=== PATIENT | male | born 1940 | race Caucasian/White ===

== ENCOUNTER 2017-07-29 08:00 | Outpatient (CLI) | payer MEDICARE, BC | END 2017-07-29 08:01 | disposition home or self-care (01) | LOC: LAB.WCP 08:00 | PROVIDERS: ATTEND Physician Assistant Medical | DX: N12 Tubulo-interstitial nephritis, not specified as acute or chronic (principal) | CPT/HCPCS: 87086 ==

== ENCOUNTER 2017-07-30 11:52 | Outpatient (CLI) | payer MEDICARE, BC ==
[~2017-07-30 11:52] MED LIST: IOPAMIDOL-300 100 ML VIAL ONE; IOPAMIDOL-300 50 ML VIAL ONE
[2017-07-30] MEDS ORDERED: IOPAMIDOL-300 100 ML VIAL IVP ONE (13:59)
--- NOTE | 2017-07-31 09:32 | CT Report ---
CT CHEST WITH CONTRAST: 07/30/2017 CLINICAL INDICATION: Chronic cough. TECHNIQUE: Axial CT images of the chest were obtained with 100 mL Isovue-300 intravenously. Compari son is made to chest x-ray of 07/25/2017. In accordance with CT protocol optimization, one or more of the following dose reduction techniques w ere utilized for this exam: automated exposure control, adjustment of mA and/or KV based on patient size, or use of iterative reconstructive technique. FINDINGS: The heart and great vessels demonstrate mild atherosclerotic calcification. No hilar or m ediastinal lymphadenopathy is present. The lungs demonstrate emphysema. Minimal dependent atelectas is is present. No suspicious pulmonary nodule or mass lesion is seen. No effusion or pneumothorax i s present. Osseous structures demonstrate degenerative changes. Please also refer to CT of the abdo men of the same day. IMPRESSION: EMPHYSEMA. NO FOCAL INFILTRATE OR PULMONARY NODULE. JOB #: [id number] EXT JOB #:[id number]
--- NOTE | 2017-07-31 09:37 | CT Report ---
CT ABDOMEN AND PELVIS WITH CONTRAST: 07/30/2017 CLINICAL INDICATION: Pyelonephritis, abdominal bruit. TECHNIQUE: Axial CT images of the abdomen and pelvis were obtained with 100 mL Isovue-300 intravenou sly as well as oral contrast. No previous CT is available for comparison. In accordance with CT protocol optimization, one or more of the following dose reduction techniques w ere utilized for this exam: automated exposure control, adjustment of mA and/or KV based on patient size, or use of iterative reconstructive technique. FINDINGS: The liver, spleen, pancreas, and adrenal glands are unremarkable. There is mild bilateral hydronephrosis and hydroureter. Small cortical cysts are seen. No solid renal lesion is appreciate d. The gallbladder is not dilated. No bowel dilatation, free gas, or free fluid is present. No abd ominal adenopathy is present. The abdominal aorta demonstrates atherosclerotic calcifications, witho ut evidence of a hemodynamically significant stenosis. Pelvis: The urinary bladder appears thick-walled and irregular. Correlation with cystoscopy is juma mmended. No distal ureterolithiasis is seen. Hydroureter persists at the bladder base. No pelvic a denopathy or free fluid is present. Osseous structures demonstrate degenerative changes. IMPRESSION: IRREGULAR, THICK-WALLED URINARY BLADDER. BILATERAL MILD HYDRONEPHROSIS AND HYDROURETER TO THE BLADDER BASE. CORRELATION WITH CYSTOSCOPY IS RECOMMENDED. NO FOCAL RENAL MASS OR PERINEPHRIC COLLECTION. BILATERAL CORTICAL CYSTS. JOB #: [id number] EXT JOB #:[id number]
== END 2017-07-30 11:53 | disposition home or self-care (01) ==
LOC: DI 11:52
PROVIDERS: ATTEND Physician Assistant Medical
DX: N13.30 Unspecified hydronephrosis (principal); N13.4 Hydroureter; F17.200 Nicotine dependence, unspecified, uncomplicated; J43.9 Emphysema, unspecified
CPT/HCPCS: 71260; 74177; Q9967

== ENCOUNTER 2018-06-04 20:59 | Outpatient (CLI) | payer MEDICARE, BC ==
--- NOTE | 2018-06-05 00:06 | Ultrasound Report ---
Procedure Date: 06/04/2018 Accession Number: [id number] / [id number] Procedure: US - Duplex Lwr Ext Arterial Bilat CPT Code: FULL RESULT: EXAM: BILATERAL LOWER EXTREMITY ARTERIAL DOPPLER ULTRASOUND EXAM DATE: 06/04/2018 09:37 PM. CLINICAL HISTORY: Claudication, intermittent, type 1 diabetes. COMPARISON: None. TECHNIQUE: Real-time sonographic vascular imaging was performed by the conductor/engineer, utilizing color-flow, Doppler flow, and spectral analysis. Multiple health and safety representative static images were saved for review. FINDINGS: On the right, multifocal atherosclerotic plaquing is seen but no focal hemodynamically significant stenosis is noted. Anterior tibial artery is not seen. Otherwise, no occlusion is identified. On the left, there is multifocal atherosclerotic plaquing but no hemodynamically significant stenosis is identified. Anterior tibial artery is not seen. Otherwise no occlusion is noted. Right Lower Extremity: REAL ESTATE INSTRUCTOR: PSV 72.4 cm/sec, triphasic waveform. PSFA: PSV 88.6 cm/sec, biphasic waveform. MSFA: PSV 100.9 cm/sec, biphasic waveform. DSFA: PSV 136.5 cm/sec, monophasic waveform. PFA: PSV 71.6 cm/sec, biphasic waveform. POP: PSV 87.5 cm/sec, biphasic waveform. AMANDA: Not seen. INSPECTION SUPERVISOR: PSV 68.5 cm/sec, monophasic waveform. MERI: PSV 38.8 cm/sec, monophasic waveform. DPA: PSV 21.7 cm/sec, monophasic waveform. Left Lower Extremity: REAL ESTATE INSTRUCTOR: PSV 90.0 cm/sec, biphasic waveform. PSFA: PSV 110.5 cm/sec, biphasic waveform. MSFA: PSV 181.3 cm/sec, biphasic waveform. DSFA: PSV 130.9 cm/sec, biphasic waveform. PFA: PSV 57.3 cm/sec, biphasic waveform. POP: PSV 39.0 cm/sec, monophasic waveform. AMANDA: Not seen. INSPECTION SUPERVISOR: PSV 86.0 cm/sec, biphasic waveform. MERI: PSV 15.2 cm/sec, monophasic waveform. DPA: PSV 56.2 cm/sec, monophasic waveform. IMPRESSION: 1. Anterior tibial artery is not visualized bilaterally. 2. Multifocal bilateral atherosclerotic disease without hemodynamically significant stenosis. RADIA
== END 2018-06-04 21:00 | disposition home or self-care (01) ==
LOC: DI 20:59
PROVIDERS: ATTEND Family Medicine
DX: E10.51 Type 1 diabetes mellitus with diabetic peripheral angiopathy without gangrene (principal)
CPT/HCPCS: 93925

== ENCOUNTER 2018-08-20 14:39 | Outpatient (CLI) | payer MEDICARE, BC | END 2018-08-20 14:40 | disposition critical access hospital (66) | LOC: EMS 14:39 | PROVIDERS: ATTEND Surgery | DX: R41.82 Altered mental status, unspecified (principal); R73.09 Other abnormal glucose | CPT/HCPCS: A0425; A0429 ==

== ENCOUNTER 2018-08-20 14:58 | Emergency (ER) | payer MEDICARE, BC ==
--- NOTE | 2018-08-20 15:21 | ED Physician Documentation ---
History of Present Illness - Stated complaint Stated Complaint: UNRESPONSIVE - Chief complaint Chief Complaint: General - History obtained from History obtained from: Patient - History of Present Illness Timing: Today Pain level max: 0 Pain level now: 0 Improved by: eating, D50 Worsened by: insulin - Additonal information Additional information: Patient is a 77-year-old male who presents to the emergency department after taking his Lantus today and then falling back asleep. Son came to check on him and found him unresponsive. EMS arrived and blood sugar was 17. They gave him D50 as well as food, he has now acting normal and appropriate. Review of Systems Constitutional: denies: Fever, Chills Nose: denies: Rhinorrhea / runny nose, Congestion Respiratory: denies: Dyspnea GI: denies: Abdominal Pain, Nausea, Vomiting, Diarrhea Skin: denies: Rash Musculoskeletal: denies: Neck pain, Back pain Neurologic: denies: Focal weakness, Numbness, Headache PD PAST MEDICAL HISTORY - Past Medical History Past Medical History: Yes Cardiovascular: Hypertension, High cholesterol Neuro: Peripheral neuropathy Endocrine/Autoimmune: Type 1 diabetes - Past Surgical History Past Surgical History: Yes Ortho: Knee replacement - Present Medications Home Medications: Ambulatory Orders Medication Instructions Recorded Confirmed Aspirin [Adult Aspirin] 81 mg PO DAILY 06/18/18 06/18/18 Cholecalciferol (Vitamin D3) 1,000 unit PO DAILY 06/18/18 06/18/18 [Vitamin D3] Gabapentin [Neurontin] 600 mg PO TID 06/18/18 06/18/18 Insulin Glargine [Lantus Solostar] 30 unit SQ DAILY 06/18/18 06/18/18 Insulin Lispro [Humalog Kwikpen 0 - 10 unit SUBQ TIDWM 06/18/18 06/18/18 U-100] Lisinopril 10 mg PO DAILY 06/18/18 06/18/18 Multivitamin [Multiple Vitamins] 1 each PO DAILY 06/18/18 06/18/18 Pen Needle, Diabetic [Pen Needle] 1 each MC QID 06/18/18 06/18/18 Prednisone [Aurora] 3 mg PO DAILY 06/18/18 06/18/18 Simvastatin 20 mg PO DAILY PM 06/18/18 06/18/18 Varenicline Tartrate [Chantix] 1 mg PO BID 06/18/18 06/18/18 - Allergies Allergies/Adverse Reactions: Allergies Allergy/AdvReac Type Severity Reaction Status Date / Time No Known Drug Allergies Allergy Verified 08/20/18 15:04 - Social History Does the pt smoke?: No Smoking Status: Former smoker Does the pt drink ETOH?: No Does the pt have substance abuse?: No - Immunizations Immunizations are current?: Yes PD ED PE NORMAL - Vitals Vital signs reviewed: Yes - General General: Alert and oriented X 3 - HEENT HEENT: Moist mucous membranes - Neck Neck: Supple, no meningeal sign - Cardiac Cardiac: RRR - Respiratory Respiratory: No respiratory distress, Clear bilaterally - Abdomen Abdomen: Soft, Non tender, Non distended - Derm Derm: Warm and dry - Neuro Neuro: Alert and oriented X 3 - Psych Psych: Normal mood, Normal affect Results - Vitals Vitals: Vital Signs - 24 hr 08/20/18 08/20/18 14:59 17:13 Temperature 35.7 C L 36.3 C L Heart Rate 85 82 Respiratory 18 16 Rate Blood Pressure 203/92 H 156/65 H O2 Saturation 100 99 Oxygen O2 Source Room air PD MEDICAL DECISION MAKING - ED course Complexity details: reviewed results, re-evaluated patient, considered differ ential, d/w patient ED course: Patient is a 77-year-old diabetic male who took his Lantus and then fell asleep, causing a hypoglycemic event. Tolerating p.o. without difficulty here. Observed in the emergency department and for over 2 hours with no recurrent hypoglycemia and in fact his blood sugar is continuing to increase. He is asymptomatic. He is going home with family member winter. Patient counseled regarding signs and symptoms for which I believe and urgent re-evaluation would be necessary. Patient with good understanding of and agreement to plan and is comfortable going home at this time This document was made in part using voice recognition software. While efforts are made to proofread this document, sound alike and grammatical errors may occur. Departure - Departure Disposition: 01 Home, Self Care Clinical Impression: Hypoglycemia Condition: Good Instructions: ED Diabetes Hypoglycemia Insulin React Follow-Up: Efra Wisdom DO [Primary Care Provider] - Within 1 week Comments: Continue to monitor your blood sugar closely at home today. Eat as you normally would. Return if you worsen. Discharge Date/Time: 08/20/18 17:15
[2018-08-20 17:14] VITALS: BP 156/65
== END 2018-08-20 17:15 | disposition home or self-care (01) ==
LOC: EDUNIT# → ED 14:58
DX: E10.649 Type 1 diabetes mellitus with hypoglycemia without coma (principal); E10.42 Type 1 diabetes mellitus with diabetic polyneuropathy; I10 Essential (primary) hypertension; E78.00 Pure hypercholesterolemia, unspecified; Z87.891 Personal history of nicotine dependence; Z96.659 Presence of unspecified artificial knee joint
CPT/HCPCS: 99283

== ENCOUNTER 2018-12-02 13:50 | Outpatient (CLI) | payer MEDICARE, BC ==
[2018-12-02 18:57] LABS: BASOPHILS # (AUTO) 0.1 10^3/uL (0.0-0.1); BASOPHILS % (AUTO) 0.8 %; EOSINOPHILS # (AUTO) 0.4 10^3/uL (0.0-0.7); EOSINOPHILS % (AUTO) 4.5 %; HGB - HEMOGLOBIN 13.6 g/dL (14.0-18.0); LYMPHOCYTES # (AUTO) 1.4 10^3/uL (1.5-3.5); LYMPHOCYTES % (AUTO) 17.3 %; MEAN CORPUSCULAR HEMOGLOBIN 29.8 pg (27.0-31.0); MEAN CORPUSCULAR HGB CONC 32.2 g/dL (32.0-36.0); MEAN CORPUSCULAR VOLUME 92.4 fL (80.0-94.0); MEAN PLATELET VOLUME 10.4 fL (7.4-11.4); MONOCYTES # (AUTO) 0.7 10^3/uL (0.0-1.0); MONOCYTES % (AUTO) 8.4 %; NEUTROPHILS # (AUTO) 5.5 10^3/uL (1.5-6.6); PLT - PLATELET COUNT 194 10^3/uL (130-450); RED BLOOD COUNT 4.58 10^6/uL (4.70-6.10); WHITE BLOOD COUNT 7.9 x10^3/uL (4.8-10.8)
[2018-12-02 19:19] LABS: ALBUMIN 3.9 g/dL (3.2-5.5); ALBUMIN/GLOBULIN RATIO 1.3 (1.0-2.2); ALKALINE PHOSPHATASE 100 IU/L (42-121); ALT ALANINE AMINOTRANSFERASE 16 IU/L (10-60); AST ASPARTATE AMINOTRANSFERASE 19 IU/L (10-42); BILIRUBIN,TOTAL 0.4 mg/dL (0.2-1.0); BUN - BLOOD UREA NITROGEN 30 mg/dL (6-20); CALCIUM 9.3 mg/dL (8.5-10.3); CARBON DIOXIDE - CO2 29 mmol/L (21-32); CHLORIDE 101 mmol/L (101-111); CHOL/HDL RATIO 3.1 (<5.0); CHOLESTEROL 160 mg/dL; CREATININE 0.9 mg/dL (0.6-1.2); GFR - MDRD 82 (>89); GLUCOSE 341 mg/dL (70-100); HDL CHOLESTEROL 51 mg/dL; LDL CHOLESTEROL,CALCULATED 87 mg/dL; LDL/HDL RATIO 1.7 (<3.6); SODIUM 138 mmol/L (135-145); TOTAL PROTEIN 6.9 g/dL (6.7-8.2); VLDL CHOLESTEROL 22 mg/dL
[2018-12-02 20:04] LABS: HB2 TOTAL 14.3 g/dL; HEMOGLOBIN A1C 1.1 g/dL; HEMOGLOBIN A1C % 9.2 % (4.6-6.2)
== END 2018-12-02 13:51 | disposition home or self-care (01) ==
LOC: LAB.WCP 13:50
PROVIDERS: ATTEND Family Medicine
DX: E10.9 Type 1 diabetes mellitus without complications (principal)
CPT/HCPCS: 36415; 80053; 80061; 83036; 83721; 85025

== ENCOUNTER 2018-12-04 14:49 | Outpatient (CLI) | payer MEDICARE, BC ==
--- NOTE | 2018-12-05 14:44 | CT Report ---
Reason: SMOKER,COUGH,CHRONIC Procedure Date: 12/04/2018 Accession Number: [id number] / [id number] Procedure: CT - CHEST WO CPT Code: FULL RESULT: EXAM: CT CHEST WITHOUT CONTRAST EXAM DATE: 12/04/2018 03:06 PM. CLINICAL HISTORY: Smoker, cough, chronic. COMPARISONS: CT abdomen/pelvis w/ 07/30/2017 1:13 PM. TECHNIQUE: Routine helical CT imaging was performed through the chest. IV contrast: None. Reconstructions: Coronal and sagittal. In accordance with CT protocol optimization, one or more of the following dose reduction techniques were utilized for this exam: automated exposure control, adjustment of mA and/or KV based on patient size, or use of iterative reconstructive technique. FINDINGS: Lungs/Pleura: There is mild centrilobular emphysema with upper lung predominance, similar to prior. There is mild bilateral basilar dependent atelectasis or scarring, similar to the prior exam. There is a 3 mm solid pulmonary nodule in the right upper lobe (series 4 image 13), unchanged compared to 07/30/2017. No bronchial thickening, consolidation, or edema. Pulmonary vasculature is normal. No pericardial or pleural effusion. No pneumothorax. Mediastinum: No cardiomegaly. Extensive coronary artery calcifications are present. No pericardial fluid. No mediastinal or hilar adenopathy apparent on this noncontrast exam. No thoracic aortic aneurysm. There is mild atherosclerotic calcification of the aortic arch, aortic arch branch vessels, and descending thoracic aorta. Bones: There are mild to moderate degenerative disk changes of the thoracic spine. No acute osseous abnormality or bone lesion. Visualized Abdomen: There is moderate atherosclerotic calcification of the visualized portion of the abdominal aorta. Left renal vascular calcifications are present. The visualized upper abdomen is otherwise unremarkable. Other: None. IMPRESSION: 1. Mild centrilobular emphysema with upper lung predominance, similar to prior. 2. There is a 3 mm solid pulmonary nodule in the right upper lobe, unchanged compared to 07/30/2017. Given the size and stability, no further imaging follow-up is recommended by Fleischner criteria. No new pulmonary nodules or other significant interval change. 3. Extensive coronary artery calcifications. There is mild atherosclerotic calcification of the thoracic aorta. Recommend follow-up of the described nodule(s) according to the following guidelines: Fleischner Society Recommendations 2017 MacMahon et al. Radiology 2017 Solid Nodules-Low Risk Patients: <6 mm (single or multiple) - No routine follow-up* 6-8 mm (single) -CT at 6-12 months, then consider CT at 18-24 months 6-8mm (multiple) -CT at 3-6 months, then consider at CT 18-24 months >8 mm (single) -Consider CT, PET/CT, or tissue sampling at 3 months >8 mm (multiple) -CT at 3-6 months, then consider CT at 18-24 months Solid Nodules-High Risk Patients: <6 mm (single or multiple) -Optional CT at 12 months* 6-8 mm (single) -CT at 6-12 months, then CT at 18-24 months 6-8mm (multiple) -CT at 3-6 months, then CT at 18-24 months >8 mm (single) -Consider CT, PET/CT, or tissue sampling at 3 months >8 mm (multiple) -CT at 3-6 months, then at 18-24 months *Nodules < 6mm do not require routine follow-up, but suspicious nodule morphology, upper lobe location, or both may warrant 12 month follow-up Subsolid nodules: <6 mm (single, GG or part solid) -No routine follow-up >=6 mm (single GG) -CT at 6-12 months to confirm, then CT q2 years until 5 years >=6 mm (single part solid) -CT at 3-6 months to confirm, if unchanged and solid <6mm, annual CT for 5 years <6 mm (multiple GG or part solid) -CT at 3-6 months. If stable, consider CT at 2 and 4 years >=6 mm (multiple GG or part solid) -CT at 3-6 months. Subsequent management based on most suspicious nodule(s). Consider follow-up at 2 and 4 years for certain suspicious nodules <6mm. If solid component develops or growth, consider resection. RADIA
== END 2018-12-04 14:50 | disposition home or self-care (01) ==
LOC: DI 14:49
PROVIDERS: ATTEND Family Medicine
DX: F17.200 Nicotine dependence, unspecified, uncomplicated (principal); J43.9 Emphysema, unspecified; R91.1 Solitary pulmonary nodule; I25.10 Atherosclerotic heart disease of native coronary artery without angina pectoris; I70.0 Atherosclerosis of aorta
CPT/HCPCS: 71250

== ENCOUNTER 2018-12-08 13:17 | Outpatient (CLI) | payer MEDICARE, BC | END 2018-12-08 13:18 | disposition home or self-care (01) | LOC: RT 13:17 | PROVIDERS: ATTEND Family Medicine | DX: R05 Cough (principal); F17.200 Nicotine dependence, unspecified, uncomplicated | CPT/HCPCS: 94010 ==

== ENCOUNTER 2019-02-12 05:45 | Outpatient (CLI) | payer MEDICARE, BC | END 2019-02-12 05:46 | disposition EMS.NT | LOC: EMS 05:45 | PROVIDERS: ATTEND Surgery | DX: R41.0 Disorientation, unspecified (principal); R25.1 Tremor, unspecified; R61 Generalized hyperhidrosis ==

== ENCOUNTER 2019-03-04 11:07 | Outpatient (CLI) | payer MEDICARE, BC ==
--- NOTE | 2019-03-04 12:53 | DEXA Report ---
Reason: DISORDER OF BONE Procedure Date: 03/04/2019 Accession Number: [id number] / [id number] Procedure: DEX - Dexa Spine and/or Hip CPT Code: FULL RESULT: EXAM: Dexa Spine and/or Hip DATE: 03/04/2019 11:40 AM CLINICAL HISTORY: DISORDER OF BONE TECHNIQUE: Dual energy x-ray absorptiometry (DXA) was performed on a [employer] System. Regions measured are the AP Spine, femoral neck, and if needed forearm. COMPARISON: None. In accordance with the International Society for Clinical Densitometry (ISCD) guidelines, data from previous exams may be reanalyzed using current recommendations and techniques. This is done to allow a more accurate basis for comparison with the current study. FINDINGS: The data for the lumbar spine is as follows: BMD (g/cm/cm) T-SCORE Z-SCORE REGION L1 1.293 1.1 2.4 L2 1.505 2.2 3.5 L3 1.752 4.3 5.5 L4 1.823 4.9 6.1 TOTAL 1.600 3.2 4.4 NOTE: All evaluable vertebrae are used for classification The data for the hip is as follows: BMD (g/cm/cm) T-SCORE Z-SCORE REGION Neck 0.901 -1.3 0.6 TOTAL 1.049 -0.4 1.0 NOTE: The femoral neck or total proximal femur, whichever is lowest, is used for classification. IMPRESSION: THE WHO CLASSIFICATION BASED ON THE INTERNATIONAL REFERENCE STANDARD IS OSTEOPENIA. THE FRACTURE RISK IS INCREASED. RECOMMENDATION: Patients with diagnosis of osteoporosis or osteopenia should have regular bone mineral density assessment. For those eligible for Medicare, routine testing is allowed once every 2 years. Testing frequency can be increased for patients who have rapidly progressing disease or for those who are receiving medical therapy to restore bone mass. COMMENT: World Health Organization (WHO) definitions for osteoporosis and osteopenia: NORMAL BMD: T-score at -1.0 or higher, fracture risk is low OSTEOPENIA BMD: T-score between -1.0 and -2.5, fracture risk is increased. OSTEOPOROSIS BMD: T-score at -2.5 or lower, fracture risk is high. National Osteoporosis Foundation recommends: 1. Obtain adequate dietary calcium (at least 1200 mg per day) and vitamin D (400-800 international units per day). 2. Participate, as appropriate, in regular weightbearing and muscle-strengthening exercise. 3. Avoid tobacco use and reduce alcohol and caffeine intake. 4. For more detailed information see the website at www.NOF.org.
== END 2019-03-04 11:08 | disposition home or self-care (01) ==
LOC: DI 11:07
PROVIDERS: ATTEND Internal Medicine Endocrinology, Diabetes & Metabolism
DX: M85.88 Other specified disorders of bone density and structure, other site (principal)
CPT/HCPCS: 77080

== ENCOUNTER 2019-08-03 11:08 | Emergency (ER) | payer MEDICARE, BC ==
[2019-08-03 11:57] LABS: BASOPHILS % (AUTO) 0.4 %; EOSINOPHILS % (AUTO) 0.3 %; LYMPHOCYTES # (AUTO) 0.6 10^3/uL (1.5-3.5); LYMPHOCYTES % (AUTO) 5.7 %; MEAN CORPUSCULAR HEMOGLOBIN 31.8 pg (27.0-31.0); MEAN CORPUSCULAR HGB CONC 31.5 g/dL (32.0-36.0); MEAN CORPUSCULAR VOLUME 101.1 fL (80.0-94.0); MEAN PLATELET VOLUME 12.1 fL (7.4-11.4); MONOCYTES # (AUTO) 0.4 10^3/uL (0.0-1.0); MONOCYTES % (AUTO) 4.5 %; NEUTROPHILS # (AUTO) 8.7 10^3/uL (1.5-6.6); NEUTROPHILS % (AUTO) 88.8 %; PLT - PLATELET COUNT 186 10^3/uL (130-450); RED BLOOD COUNT 3.77 10^6/uL (4.70-6.10); RED CELL DISTRIBUTION WIDTH 13.5 % (12.0-15.0); WHITE BLOOD COUNT 9.8 x10^3/uL (4.8-10.8)
[2019-08-03 12:19] LABS: KETONES, SERUM (ACETEST) SMALL (NEGATIVE)
[2019-08-03 12:33] LABS: ALBUMIN 3.5 g/dL (3.2-5.5); ALBUMIN/GLOBULIN RATIO 1.2 (1.0-2.2); ALKALINE PHOSPHATASE 108 IU/L (42-121); ALT ALANINE AMINOTRANSFERASE 25 IU/L (10-60); AST ASPARTATE AMINOTRANSFERASE 24 IU/L (10-42); BILIRUBIN,TOTAL 1.6 mg/dL (0.2-1.0); BUN - BLOOD UREA NITROGEN 67 mg/dL (6-20); CALCIUM 9.5 mg/dL (8.5-10.3); CARBON DIOXIDE - CO2 13 mmol/L (21-32); CHLORIDE 90 mmol/L (101-111); CREATININE 1.9 mg/dL (0.6-1.2); GFR - MDRD 35 (>89); GLUCOSE 807 mg/dL (70-100); LIPASE 36 U/L (22-51); MAGNESIUM 2.6 mg/dL (1.7-2.8); PHOSPHORUS 7.8 mg/dL (2.5-4.6); SODIUM 132 mmol/L (135-145); TOTAL PROTEIN 6.5 g/dL (6.7-8.2)
[2019-08-03 12:37] LABS: VBG PCO2 37.2 mmHg (41-51); VBG PH 7.172 (7.31-7.41)
[2019-08-03 12:38] LABS: VBG BASE EXCESS -14.3 mmol/L (-2 - +2); VBG PO2 29.6 mmHg (25-47); VBG TOTAL CO2 14.5 mmol/L (24-29)
[2019-08-03] MEDS ORDERED: CALCIUM GLUCONATE 2,000 MG in SODIUM CHLORIDE 0.9% 100ML 100 ML IV STA (12:46)
[2019-08-03] MEDS ORDERED: INSULIN REGULAR HUMAN 100 UNIT in SODIUM CHLORIDE 0.9% 100ML 99 ML IV STA (12:46)
[2019-08-03] MEDS ORDERED: SODIUM CHLORIDE 0.9% 1,000 ML IV ONE ×3 (13:00→16:10)
--- NOTE | 2019-08-03 13:03 | ED Physician Documentation ---
History of Present Illness - Stated complaint Stated Complaint: HIGH BP - Chief complaint Chief Complaint: General - Additonal information Additional information: This is a 78-year-old male with a history of diabetes who presents with weaknes s, fatigue, and high blood sugar. Patient is an insulin-dependent diabetic who takes Humalog, his was present at bedside states that he began feeling unwell yesterday, and His blood sugars have been high in the 500 range. He feels generalized weakness, and has had some slight nausea but no vomiting. No fever. No chest pain. He did have slight shortness of breath earlier in the day. No focal abdominal pain. Review of Systems Constitutional: denies: Fever Eyes: denies: Loss of vision Nose: denies: Rhinorrhea / runny nose Cardiac: reports: Chest pain / pressure Respiratory: denies: Cough GI: reports: Nausea. 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 PD PAST MEDICAL HISTORY - Past Medical History Cardiovascular: Hypertension, High cholesterol Neuro: Peripheral neuropathy Endocrine/Autoimmune: Type 1 diabetes - Past Surgical History Past Surgical History: Yes Ortho: Knee replacement - Present Medications Home Medications: Ambulatory Orders Medication Instructions Recorded Confirmed Aspirin [Adult Aspirin] 81 mg PO DAILY 06/18/18 06/18/18 Cholecalciferol (Vitamin D3) 1,000 unit PO DAILY 06/18/18 06/18/18 [Vitamin D3] Gabapentin [Neurontin] 600 mg PO TID 06/18/18 06/18/18 Insulin Glargine [Lantus Solostar] 30 unit SQ DAILY 06/18/18 06/18/18 Insulin Lispro [Humalog Kwikpen 0 - 10 unit SUBQ TIDWM 06/18/18 06/18/18 U-100] Lisinopril 10 mg PO DAILY 06/18/18 06/18/18 Multivitamin [Multiple Vitamins] 1 each PO DAILY 06/18/18 06/18/18 Pen Needle, Diabetic [Pen Needle] 1 each MC QID 06/18/18 06/18/18 Prednisone [Aurora] 3 mg PO DAILY 06/18/18 06/18/18 Simvastatin 20 mg PO DAILY PM 06/18/18 06/18/18 Varenicline Tartrate [Chantix] 1 mg PO BID 06/18/18 06/18/18 - Allergies Allergies/Adverse Reactions: Allergies Allergy/AdvReac Type Severity Reaction Status Date / Time No Known Drug Allergies Allergy Verified 08/20/18 15:04 - Social History Does the pt smoke?: No Smoking Status: Never smoker Does the pt drink ETOH?: No Does the pt have substance abuse?: No - Immunizations Immunizations are current?: Yes PD ED PE NORMAL - Vitals Vital signs reviewed: Yes - General General: Alert and oriented X 3, No acute distress - HEENT HEENT: PERRL, Other (mucous membranes tacky) - Neck Neck: Supple, no meningeal sign - Cardiac Cardiac: RRR - Respiratory Respiratory: Other (Tachypnea, lungs clear to auscultation) - Abdomen Abdomen: Soft, Non tender, Non distended - Derm Derm: Warm and dry - Extremities Extremities: No deformity - Neuro Neuro: Alert and oriented X 3 - Psych Psych: Normal mood, Normal affect Results - Vitals Vitals: Oxygen O2 Source Room air - EKG (time done) 12:37 Other comments: Other comments (Rhythm sinus, rate 71,There is no ST segment elevation. There is slight lateral depression in V5 and V6. T waves are peaked. Golden is normal. First-degree AV block) 14:01 Other comments: Other comments (Rate 82, rhythm sinus, there is no ST segment elevation or depression, no abnormal T wave inversions. There is a first-degree AV block. T waves no longer appear peaked. ) - Labs Labs: Microbiology 08/03/19 16:15 Urine Culture - Preliminary Urine,Clean Catch CULTURE IN PROGRESS. RESULTS TO FOLLOW. Laboratory Tests 08/03/19 08/03/19 08/03/19 11:47 11:47 11:47 WBC 9.8 RBC 3.77 L Hgb 12.0 L Hct 38.1 L MCV 101.1 H MCH 31.8 H MCHC 31.5 L RDW 13.5 Plt Count 186 MPV 12.1 H Neut # (Auto) 8.7 H Lymph # (Auto) 0.6 L [place] # (Auto) 0.4 Eos # (Auto) 0.0 Baso # (Auto) 0.0 Absolute Nucleated RBC 0.00 Nucleated RBC % 0.0 VBG pH VBG pCO2 VBG pO2 VBG HCO3 VBG Total CO2 VBG O2 Saturation VBG Base Excess Sodium 132 L Potassium 6.8 H* Chloride 90 L Carbon Dioxide 13 L Anion Gap 29.0 H BUN 67 H Creatinine 1.9 H Estimated GFR (MDRD) 35 L Glucose 807 H* POC Whole Bld Glucose Calcium 9.5 Phosphorus 7.8 H Magnesium 2.6 Total Bilirubin 1.6 H AST 24 ALT 25 Alkaline Phosphatase 108 Troponin I High Sens 143.1 H* Total Protein 6.5 L Albumin 3.5 Globulin 3.0 Albumin/Globulin Ratio 1.2 Lipase 36 Urine Color Urine Clarity Urine pH Ur Specific [place] Urine Protein Urine Glucose (UA) Urine Ketones Urine Occult Blood Urine Nitrite Urine Bilirubin Urine Urobilinogen Ur Leukocyte Esterase Urine RBC Urine WBC Ur Squamous Epith Cells Urine Bacteria Urine Mucus Ur Microscopic Review Urine Culture Comments Ethyl Alcohol < 5.0 Serum Ketones SMALL H 08/03/19 08/03/19 08/03/19 12:30 15:12 15:12 WBC RBC Hgb Hct MCV MCH MCHC RDW Plt Count MPV Neut # (Auto) Lymph # (Auto) [place] # (Auto) Eos # (Auto) Baso # (Auto) Absolute Nucleated RBC Nucleated RBC % VBG pH 7.172 L VBG pCO2 37.2 L VBG pO2 29.6 VBG HCO3 13.3 L VBG Total CO2 14.5 L VBG O2 Saturation 51.4 L VBG Base Excess -14.3 L Sodium 137 Potassium 5.1 H Chloride 95 L Carbon Dioxide 14 L Anion Gap 28.0 H BUN 68 H Creatinine 1.7 H Estimated GFR (MDRD) 39 L Glucose 682 H* POC Whole Bld Glucose Calcium 10.1 Phosphorus Magnesium Total Bilirubin AST ALT Alkaline Phosphatase Troponin I High Sens 3725.6 H* Total Protein Albumin Globulin Albumin/Globulin Ratio Lipase Urine Color Urine Clarity Urine pH Ur Specific [place] Urine Protein Urine Glucose (UA) Urine Ketones Urine Occult Blood Urine Nitrite Urine Bilirubin Urine Urobilinogen Ur Leukocyte Esterase Urine RBC Urine WBC Ur Squamous Epith Cells Urine Bacteria Urine Mucus Ur Microscopic Review Urine Culture Comments Ethyl Alcohol Serum Ketones 08/03/19 08/03/19 08/03/19 15:12 16:15 16:57 WBC RBC Hgb Hct MCV MCH MCHC RDW Plt Count MPV Neut # (Auto) Lymph # (Auto) [place] # (Auto) Eos # (Auto) Baso # (Auto) Absolute Nucleated RBC Nucleated RBC % VBG pH 7.215 L VBG pCO2 34.5 L VBG pO2 51.4 H VBG HCO3 13.6 L VBG Total CO2 14.7 L VBG O2 Saturation 83.5 H VBG Base Excess -13.1 L Sodium Potassium Chloride Carbon Dioxide Anion Gap BUN Creatinine Estimated GFR (MDRD) Glucose POC Whole Bld Glucose 522 H* Calcium Phosphorus Magnesium Total Bilirubin AST ALT Alkaline Phosphatase Troponin I High Sens Total Protein Albumin Globulin Albumin/Globulin Ratio Lipase Urine Color LT. YELLOW Urine Clarity CLEAR Urine pH 5.0 Ur Specific [place] 1.015 Urine Protein NEGATIVE Urine Glucose (UA) >=1000 H Urine Ketones >=80 H Urine Occult Blood TRACE-INTA Urine Nitrite NEGATIVE Urine Bilirubin NEGATIVE Urine Urobilinogen 0.2 (NORMAL) Ur Leukocyte Esterase SMALL H Urine RBC 0-5 Urine WBC 11-25 H Ur Squamous Epith Cells FEW Squamous Urine Bacteria Few Urine Mucus Marked Strands Ur Microscopic Review INDICATED Urine Culture Comments INDICATED Ethyl Alcohol Serum Ketones PD MEDICAL DECISION MAKING - ED course Complexity details: considered differential (DKA, ACS, electrolyte abnormality, hyperkalemia, UTI) ED course: Patient presents tachypneic and afebrile. POC glucose is high. IV inserted, NS bolus started. Labs reveal a pH or 7.2, glucose 801, anion gap 29, ketones present, consistent with DKA. Potassium was 6.8, patient was given calcium gl uconate IV, 5 unit bolus of insulin, insulin drip was started, and additional NS bolus to treat this. He did have peaked T waves as well as lateral ST segment depressions on his EKG, he is pain free and denies having chest pain recently. HS troponin is 143. I believe he needs ICU care for his DKA as well as cardiology available due to his elevated troponin and EKG changes. [facility] does not have ICU beds so [facility] was contacted, Dr. Benson states that he will accept patient once potassium is down. Repeat labs show improving glucose, potassium 5.1, HS troponin quite elevated at >3700. he remains chest pain free, repeat EKG appears improved, peaked Ts have resolved and ST depression is no longer seen. Patient has been hemodynamically stable. Dr. Benson was updated and accepted the patient. He was transferred via ACLS with insulin drip to [facility]. UA returned with 11-25 WBC, concerning for possible UTI, I did not have a chance to start antibiotics prior to transfer but they can be started in the [facility] ICU, patient is not septic at this time and his DKA is his primary problem. Departure - Departure Disposition: 02 Transfer Acute Care Hosp Clinical Impression: Troponin level elevated DKA (diabetic ketoacidoses) Qualifiers: Diabetes mellitus type: type 1 Diabetes mellitus complication detail: without coma Qualified Code(s): E10.10 - Type 1 diabetes mellitus with ketoacidosis without coma Condition: Stable Discharge Date/Time: 08/03/19 18:01
[2019-08-03] MEDS ORDERED: INSULIN REGULAR HUMAN 100 UNIT/1 ML 10 ML MDV IVP STA (13:07)
[2019-08-03 15:22] LABS: VBG BASE EXCESS -13.1 mmol/L (-2 - +2); VBG PCO2 34.5 mmHg (41-51); VBG PH 7.215 (7.31-7.41); VBG PO2 51.4 mmHg (25-47); VBG TOTAL CO2 14.7 mmol/L (24-29)
[2019-08-03 15:27] LABS: CALCIUM 10.1 mg/dL (8.5-10.3); CREATININE 1.7 mg/dL (0.6-1.2)
[2019-08-03 16:40] VITALS: BP 139/60
[2019-08-03 16:50] LABS: BILIRUBIN,URINE NEGATIVE (NEGATIVE); GLUCOSE, URINE (UA) >=1000 mg/dL (NEGATIVE); KETONES,URINE (UA) >=80 mg/dL (NEGATIVE); LEUKOCYTE ESTERASE, URINE SMALL (NEGATIVE); NITRITE,URINE NEGATIVE (NEGATIVE); OCCULT BLOOD,URINE TRACE-INTA (NEGATIVE); PROTEIN,URINE NEGATIVE (NEGATIVE); UROBILINOGEN,URINE 0.2 (NORMAL) E.U./dL (NORMAL)
[2019-08-03 16:53] LABS: CLARITY,URINE CLEAR (CLEAR)
[2019-08-03 17:14] LABS: BACTERIA,URINE Few /HPF (None Seen); MUCUS,URINE Marked Strands; RBC,URINE 0-5 /HPF (0-5); SQUAMOUS EPITHELIAL CELL,UR FEW Squamous (<= Few)
== END 2019-08-03 18:01 | disposition short-term general hospital (02) ==
LOC: ED 11:08
DX: E10.10 Type 1 diabetes mellitus with ketoacidosis without coma (principal); R74.8 Abnormal levels of other serum enzymes; E87.5 Hyperkalemia; R94.31 Abnormal electrocardiogram [ECG] [EKG]; I44.0 Atrioventricular block, first degree; I10 Essential (primary) hypertension; E10.42 Type 1 diabetes mellitus with diabetic polyneuropathy; Z79.82 Long term (current) use of aspirin
CPT/HCPCS: 36415; 80048; 80053; 81001; 82009; 82803; 83690; 83735; 84100; 84484; 85025; 87086; 93005; 96361; 96365; 96366; 99283; 99285; J1815; 80320; 81003

== ENCOUNTER 2019-08-03 18:06 | Outpatient (CLI) | payer MEDICARE, BC | END 2019-08-03 18:07 | disposition short-term general hospital (02) | LOC: EMS 18:06 | PROVIDERS: ATTEND Surgery | DX: E11.10 Type 2 diabetes mellitus with ketoacidosis without coma (principal); R79.89 Other specified abnormal findings of blood chemistry | CPT/HCPCS: A0425; A0426 ==

== ENCOUNTER 2019-09-23 16:04 | Emergency (ER) | payer MEDICARE, BC ==
[2019-09-23] MEDS ORDERED: SODIUM CHLORIDE 0.9% 1,000 ML IV ONE (16:25)
--- NOTE | 2019-09-23 16:27 | ED Physician Documentation ---
History of Present Illness - Stated complaint Stated Complaint: LOW BP - History obtained from History obtained from: Patient (78-year-old gentleman with diabetes on insulin, had non-STEMI in mid-July subsequently had a bare-metal stent to the proximal left circumflex in mid August. It sounds like he was not stented during the non-STEMI because he was fairly ill. He was considered for CABG but was too frail. He feels like he has had some generalized weakness and a decline over the last week. His blood pressure this morning at home was about 105/50. He went to cardiac rehab where a standing blood pressure was done at 50 systolic and referred here. He denies chest pain or trouble breathing.) Review of Systems Constitutional: reports: Fatigue. denies: Fever, Chills Cardiac: denies: Chest pain / pressure, Palpitations Respiratory: denies: Dyspnea, Cough GI: denies: Abdominal Pain, Vomiting, Constipation, Diarrhea, Bloody / black stool PD PAST MEDICAL HISTORY - Past Medical History Cardiovascular: Hypertension, High cholesterol Neuro: Peripheral neuropathy Endocrine/Autoimmune: Type 1 diabetes - Past Surgical History Past Surgical History: Yes Ortho: Knee replacement - Present Medications Home Medications: Ambulatory Orders Medication Instructions Recorded Confirmed Aspirin [Adult Aspirin] 81 mg PO DAILY 06/18/18 06/18/18 Cholecalciferol (Vitamin D3) 1,000 unit PO DAILY 06/18/18 06/18/18 [Vitamin D3] Gabapentin [Neurontin] 600 mg PO TID 06/18/18 06/18/18 Insulin Glargine [Lantus Solostar] 30 unit SQ DAILY 06/18/18 06/18/18 Insulin Lispro [Humalog Kwikpen 0 - 10 unit SUBQ TIDWM 06/18/18 06/18/18 U-100] Lisinopril 10 mg PO DAILY 06/18/18 06/18/18 Multivitamin [Multiple Vitamins] 1 each PO DAILY 06/18/18 06/18/18 Pen Needle, Diabetic [Pen Needle] 1 each MC QID 06/18/18 06/18/18 Prednisone [Aurora] 3 mg PO DAILY 06/18/18 06/18/18 Simvastatin 20 mg PO DAILY PM 06/18/18 06/18/18 Varenicline Tartrate [Chantix] 1 mg PO BID 06/18/18 06/18/18 - Allergies Allergies/Adverse Reactions: Allergies Allergy/AdvReac Type Severity Reaction Status Date / Time No Known Drug Allergies Allergy Verified 08/20/18 15:04 - Social History Does the pt smoke?: No Smoking Status: Never smoker Does the pt drink ETOH?: No Does the pt have substance abuse?: No - Immunizations Immunizations are current?: Yes PD ED PE NORMAL - Vitals Vital signs reviewed: Yes - General General: Alert and oriented X 3, No acute distress - HEENT HEENT: PERRL, EOMI - Neck Neck: Supple, no meningeal sign, No bony TTP - Cardiac Cardiac: RRR, No murmur - Respiratory Respiratory: No respiratory distress, Clear bilaterally - Abdomen Abdomen: Non tender - Rectal Rectal: Other (Dark stool, not grossly melanic. Sent for guaiac to the lab.) - Extremities Extremities: No edema, No calf tenderness / cord - Neuro Neuro: Alert and oriented X 3, Normal speech Eye Opening: Spontaneous Motor: Obeys Commands Verbal: Oriented GCS Score: 15 - Psych Psych: Normal mood, Normal affect Results - Vitals Vitals: Vital Signs - 24 hr 09/23/19 09/23/19 16:30 16:41 Temperature 36.5 C Heart Rate 70 60 Respiratory 18 19 Rate Blood Pressure 117/65 131/50 H O2 Saturation 95 99 Oxygen O2 Source Room air - EKG (time done) 1612 Rate: Rate (enter#) (59) Rhythm: NSR [place]: Normal Intervals: Prolonged RI QRS: Normal Ischemia: Normal ST segments Computer interpretation: Agree with computer - Labs Labs: Microbiology 09/23/19 16:55 Occult Blood - Final Stool Laboratory Tests 09/23/19 09/23/19 09/23/19 16:20 16:20 16:20 WBC 9.1 RBC 2.25 L Hgb 7.1 L Hct 24.3 L MCV 108.0 H MCH 31.6 H MCHC 29.2 L RDW 16.0 H Plt Count 275 MPV 11.2 Neut # (Auto) 6.8 H Lymph # (Auto) 1.0 L [place] # (Auto) 1.1 H Eos # (Auto) 0.1 Baso # (Auto) 0.1 Absolute Nucleated RBC 0.03 Nucleated RBC % 0.3 Sodium 142 Potassium 4.5 Chloride 107 Carbon Dioxide 26 Anion Gap 9.0 BUN 31 H Creatinine 0.9 Estimated GFR (MDRD) 82 L Glucose 214 H Calcium 8.6 Total Bilirubin 0.5 AST 21 ALT 15 Alkaline Phosphatase 92 Troponin I High Sens 48.6 H* Total Protein 6.1 L Albumin 3.2 Globulin 2.9 Albumin/Globulin Ratio 1.1 Lipase 39 PD MEDICAL DECISION MAKING - ED course ED course: 78-year-old gentleman with diabetes and recent coronary stenting with coronary disease presents with standing low blood pressure at cardiac rehab, some decline over the last week but otherwise minimally symptomatic. His supine blood pressure here is better. We will give him some IV fluids and check some labs and do orthostatics after that. However his hemoglobin came back quite low at 7.1. This was followed by rectal exam confirming some dark stool with guaiac positivity. Assume this is acute. Per the he had an upper endoscopy that was negative recently by Dr. Johnston in [place], but they were holding off on a colonoscopy to see if his hemoglobin had stabilized. At this point it seems it has not. Blood was readied and he was given a shot of Protonix even though based on the above history it sounds like it is a lower GI bleed. I spoke with Dr. Galarza here, the admitting physician but she felt uncomfortable with the prospect of admitting him without interventional cardiology and GI backup especially since he cannot come off of his Plavix at this juncture. Accepted to [facility] for further evaluation and treatment by Dr. Lucia North at 5:47 PM. Cobras were completed. Will try to get some blood in him before he goes. He is stable for transport. Departure - Departure Disposition: 02 Transfer Acute Care Hosp Clinical Impression: GI bleed Qualifiers: GI bleed type/associated pathology: unspecified gastrointestinal hemorrhage type Qualified Code(s): K92.2 - Gastrointestinal hemorrhage, unspecified Condition: Serious
[2019-09-23 16:38] LABS: BASOPHILS # (AUTO) 0.1 10^3/uL (0.0-0.1); BASOPHILS % (AUTO) 0.5 %; EOSINOPHILS # (AUTO) 0.1 10^3/uL (0.0-0.7); EOSINOPHILS % (AUTO) 0.8 %; HGB - HEMOGLOBIN 7.1 g/dL (14.0-18.0); LYMPHOCYTES % (AUTO) 11.2 %; MEAN CORPUSCULAR HEMOGLOBIN 31.6 pg (27.0-31.0); MEAN CORPUSCULAR HGB CONC 29.2 g/dL (32.0-36.0); MEAN PLATELET VOLUME 11.2 fL (7.4-11.4); MONOCYTES # (AUTO) 1.1 10^3/uL (0.0-1.0); MONOCYTES % (AUTO) 12.4 %; NEUTROPHILS # (AUTO) 6.8 10^3/uL (1.5-6.6); NEUTROPHILS % (AUTO) 74.7 %; PLT - PLATELET COUNT 275 10^3/uL (130-450); RED BLOOD COUNT 2.25 10^6/uL (4.70-6.10); WHITE BLOOD COUNT 9.1 x10^3/uL (4.8-10.8)
[2019-09-23 16:53] LABS: ALBUMIN 3.2 g/dL (3.2-5.5); ALBUMIN/GLOBULIN RATIO 1.1 (1.0-2.2); BILIRUBIN,TOTAL 0.5 mg/dL (0.2-1.0); CALCIUM 8.6 mg/dL (8.5-10.3); CREATININE 0.9 mg/dL (0.6-1.2); TOTAL PROTEIN 6.1 g/dL (6.7-8.2)
[2019-09-23] MEDS ORDERED: PANTOPRAZOLE 40 MG VIAL IVP STA (17:11)
[2019-09-23 20:12] VITALS: BP 168/75
== END 2019-09-23 20:26 | disposition short-term general hospital (02) ==
LOC: ED 16:04
DX: K92.1 Melena (principal); D64.9 Anemia, unspecified; I95.9 Hypotension, unspecified; I44.0 Atrioventricular block, first degree; I10 Essential (primary) hypertension; I25.10 Atherosclerotic heart disease of native coronary artery without angina pectoris; I25.2 Old myocardial infarction; Z95.5 Presence of coronary angioplasty implant and graft; E10.42 Type 1 diabetes mellitus with diabetic polyneuropathy; Z79.02 Long term (current) use of antithrombotics/antiplatelets; Z79.82 Long term (current) use of aspirin
CPT/HCPCS: 36415; 80053; 82272; 83690; 84484; 85025; 86850; 86900; 86901; 86920; 93005; 96361; 96374; 99284; 99285; P9016

== ENCOUNTER 2019-10-05 19:51 | Outpatient (CLI) | payer MEDICARE, BC | END 2019-10-05 19:52 | disposition critical access hospital (66) | LOC: EMS 19:51 | PROVIDERS: ATTEND Surgery | DX: E16.2 Hypoglycemia, unspecified (principal) | CPT/HCPCS: A0425; A0427 ==

== ENCOUNTER 2019-10-05 20:07 | Emergency (ER) | payer MEDICARE, BC ==
[2019-10-05] MEDS ORDERED: SODIUM CHLORIDE 0.9% 1,000 ML IV ONE (20:23)
--- NOTE | 2019-10-05 20:26 | ED Physician Documentation ---
History of Present Illness - Stated complaint Stated Complaint: DIZZY. LIGHTHEADED - Chief complaint Chief Complaint: General - History obtained from History obtained from: Patient, EMS - History of Present Illness Timing: Enter time (1899), Today - Additonal information Additional information: 78-year-old diabetic male on insulin was at his home today when he developed lightheadedness dizziness and collapsing from his he was not injured. He was found to have a low blood sugar when medics arrived blood sugar was 18 and the patient was administered D10 intravenously with resolution of his altered level of consciousness and a second blood sugar done in the ambulance again was low and the patient was administered a second dose of D10. The patient states he feels fine now. He is preparing to do a capsule endoscopy tomorrow. He is not you tried 3 times daily. He has recently been in the [facility] in [place] where he had a stent placed and a blood transfusion. Review of Systems Constitutional: reports: Sweats. denies: Fever, Chills, Myalgias Eyes: denies: Decreased vision Ears: denies: Ear pain Nose: denies: Congestion Throat: denies: Sore throat Cardiac: denies: Chest pain / pressure Respiratory: denies: Cough GI: denies: Vomiting : denies: Dysuria Neurologic: reports: Confused (resolved), Unresponsive (resolved). denies: Generalized weakness, Focal weakness, Numbness PD PAST MEDICAL HISTORY - Past Medical History Cardiovascular: Hypertension, High cholesterol Neuro: Peripheral neuropathy Endocrine/Autoimmune: Type 1 diabetes - Past Surgical History Past Surgical History: Yes Ortho: Knee replacement - Present Medications Home Medications: Ambulatory Orders Medication Instructions Recorded Confirmed Aspirin [Adult Aspirin] 81 mg PO DAILY 06/18/18 06/18/18 Cholecalciferol (Vitamin D3) 1,000 unit PO DAILY 06/18/18 06/18/18 [Vitamin D3] Gabapentin [Neurontin] 600 mg PO TID 06/18/18 06/18/18 Insulin Glargine [Lantus Solostar] 30 unit SQ DAILY 06/18/18 06/18/18 Insulin Lispro [Humalog Kwikpen 0 - 10 unit SUBQ TIDWM 06/18/18 06/18/18 U-100] Lisinopril 10 mg PO DAILY 06/18/18 06/18/18 Multivitamin [Multiple Vitamins] 1 each PO DAILY 06/18/18 06/18/18 Pen Needle, Diabetic [Pen Needle] 1 each MC QID 06/18/18 06/18/18 Prednisone [Aurora] 3 mg PO DAILY 06/18/18 06/18/18 Simvastatin 20 mg PO DAILY PM 06/18/18 06/18/18 Varenicline Tartrate [Chantix] 1 mg PO BID 06/18/18 06/18/18 - Allergies Allergies/Adverse Reactions: Allergies Allergy/AdvReac Type Severity Reaction Status Date / Time No Known Drug Allergies Allergy Verified 10/05/19 20:16 - Social History Does the pt smoke?: No Smoking Status: Never smoker Does the pt drink ETOH?: No Does the pt have substance abuse?: No - Immunizations Immunizations are current?: Yes - POLST Patient has POLST: No PD ED PE NORMAL - Vitals Vital signs reviewed: Yes (normal ) - General General: Alert and oriented X 3, No acute distress, Well developed/nourished - HEENT HEENT: Atraumatic, PERRL, EOMI - Neck Neck: Supple, no meningeal sign, No bony TTP - Cardiac Cardiac: RRR, No murmur - Respiratory Respiratory: No respiratory distress, Clear bilaterally - Abdomen Abdomen: Normal bowel sounds, Soft, Non tender, Non distended, No organomegaly - Back Back: No CVA TTP, No spinal TTP - Derm Derm: Normal color, Warm and dry, No rash - Extremities Extremities: No deformity, No edema - Neuro Neuro: Alert and oriented X 3, foreign languages department chair 2-12 intact, No motor deficit, No sensory deficit, Normal speech Eye Opening: Spontaneous Motor: Obeys Commands Verbal: Oriented GCS Score: 15 - Psych Psych: Normal mood, Normal affect Results - Vitals Vitals: Vital Signs - 24 hr 10/05/19 10/05/19 10/05/19 20:11 20:43 20:46 Temperature 36.4 C L Heart Rate 65 60 62 Respiratory 16 16 16 Rate Blood Pressure 130/85 H 182/79 H 148/75 H O2 Saturation 100 100 10/05/19 10/05/19 10/05/19 21:44 22:13 23:01 Temperature 36.6 C 36.6 C Heart Rate 68 59 L 63 Respiratory 16 16 20 Rate Blood Pressure 155/63 H 153/67 H 160/68 H O2 Saturation 100 100 98 Oxygen O2 Source Room air - EKG (time done) 2017 Rate: Rate (enter#) (61) Rhythm: NSR, LAE Ischemia: ST elevation c/w ischemia (inferior leads minimal ) Compare to prior EKG: Changed from prior EKG (SPT 09-23-[address] elevation in the inferior leads is less) Computer interpretation: Agree with computer - Labs Labs: Laboratory Tests 10/05/19 10/05/19 10/05/19 20:37 20:37 20:37 WBC 7.4 RBC 3.27 L Hgb 9.7 L Hct 33.4 L MCV 102.1 H MCH 29.7 MCHC 29.0 L RDW 15.4 H Plt Count 217 MPV 11.3 Neut # (Auto) 5.7 Lymph # (Auto) 0.7 L [place] # (Auto) 0.8 Eos # (Auto) 0.2 Baso # (Auto) 0.1 Absolute Nucleated RBC 0.00 Nucleated RBC % 0.0 Sodium 139 Potassium 4.8 Chloride 107 Carbon Dioxide 25 Anion Gap 7.0 BUN 33 H Creatinine 0.9 Estimated GFR (MDRD) 82 L Glucose 143 H Lactic Acid 1.2 Calcium 8.4 L Total Bilirubin 0.5 AST 18 ALT 15 Alkaline Phosphatase 66 Troponin I High Sens Total Protein 6.6 L Albumin 3.5 Globulin 3.1 Albumin/Globulin Ratio 1.1 Lipase 26 10/05/19 20:37 WBC RBC Hgb Hct MCV MCH MCHC RDW Plt Count MPV Neut # (Auto) Lymph # (Auto) [place] # (Auto) Eos # (Auto) Baso # (Auto) Absolute Nucleated RBC Nucleated RBC % Sodium Potassium Chloride Carbon Dioxide Anion Gap BUN Creatinine Estimated GFR (MDRD) Glucose Lactic Acid Calcium Total Bilirubin AST ALT Alkaline Phosphatase Troponin I High Sens 7.8 Total Protein Albumin Globulin Albumin/Globulin Ratio Lipase - Rads (name of study) cxr Radiology: Prelim report reviewed (Impression: Nonspecific bronchial wall thickening, may be chronic in the setting of COPD. Acute bronchitis not excluded.), EMP read indepedently, See rad report Procedures - IVC sono (time) 2019 Bedside IVC sono: IVC measures (cm) (1.37), IVC collapsed c insp (cm) ( complete), Dehydration (est <1 liter deficit) PD MEDICAL DECISION MAKING - ED course Complexity details: reviewed old records, reviewed results, re-evaluated patient, considered differential, d/w patient, d/w family ED course: 78-year-old male with an acute hypoglycemic reaction has improved with the use o f the D10 and he is fed here in the emergency department. He is found to be only mildly dehydrated and is administered saline as well. He has capsule endoscopy to be done later today and today his blood counts are improved. Departure - Departure Disposition: 01 Home, Self Care Clinical Impression: Hypoglycemia Condition: Stable Instructions: ED Diabetes Hypoglycemia Insulin React Follow-Up: Efra Wisdom DO [Primary Care Provider] - Discharge Date/Time: 10/05/19 23:13
[2019-10-05 20:44] LABS: BASOPHILS # (AUTO) 0.1 10^3/uL (0.0-0.1); BASOPHILS % (AUTO) 0.7 %; EOSINOPHILS # (AUTO) 0.2 10^3/uL (0.0-0.7); EOSINOPHILS % (AUTO) 2.6 %; HGB - HEMOGLOBIN 9.7 g/dL (14.0-18.0); LYMPHOCYTES # (AUTO) 0.7 10^3/uL (1.5-3.5); LYMPHOCYTES % (AUTO) 9.4 %; MEAN CORPUSCULAR HEMOGLOBIN 29.7 pg (27.0-31.0); MEAN CORPUSCULAR VOLUME 102.1 fL (80.0-94.0); MEAN PLATELET VOLUME 11.3 fL (7.4-11.4); MONOCYTES # (AUTO) 0.8 10^3/uL (0.0-1.0); MONOCYTES % (AUTO) 10.5 %; NEUTROPHILS # (AUTO) 5.7 10^3/uL (1.5-6.6); NEUTROPHILS % (AUTO) 76.1 %; PLT - PLATELET COUNT 217 10^3/uL (130-450); RED BLOOD COUNT 3.27 10^6/uL (4.70-6.10); RED CELL DISTRIBUTION WIDTH 15.4 % (12.0-15.0); WHITE BLOOD COUNT 7.4 x10^3/uL (4.8-10.8)
[2019-10-05 21:00] LABS: ALBUMIN 3.5 g/dL (3.2-5.5); ALBUMIN/GLOBULIN RATIO 1.1 (1.0-2.2); BILIRUBIN,TOTAL 0.5 mg/dL (0.2-1.0); CALCIUM 8.4 mg/dL (8.5-10.3); CREATININE 0.9 mg/dL (0.6-1.2); TOTAL PROTEIN 6.6 g/dL (6.7-8.2)
--- NOTE | 2019-10-05 21:00 | XRAY Report ---
Reason: rhonchi in left base Procedure Date: 10/05/2019 Accession Number: [id number] / [id number] Procedure: XR - Chest 1 View X-Ray CPT Code: 90463 Final Report FULL RESULT: EXAM: CHEST RADIOGRAPHY EXAM DATE: 10/05/2019 08:33 PM. CLINICAL HISTORY: Rhonchi in left base. COMPARISON: CHEST 2 VIEW PA/LAT 07/25/2017 1:51 PM CHEST W/O 12/04/2018 3:01 PM. TECHNIQUE: 1 view. FINDINGS: Lungs/Pleura: No dense consolidation. No large effusion or pneumothorax. No pulmonary edema. COPD is present. Bronchial wall thickening. Pulmonary nodule seen on prior chest CT of 12/04/2018 is not visible by radiograph. Mediastinum: Heart and mediastinal contours are unremarkable. Other: None. IMPRESSION: Nonspecific bronchial wall thickening, may be chronic in the setting of COPD. Acute bronchitis not excluded. RADIA
[2019-10-05 23:02] VITALS: BP 160/68
== END 2019-10-05 23:13 | disposition home or self-care (01) ==
LOC: EDUNIT# → ED 20:07
DX: E10.649 Type 1 diabetes mellitus with hypoglycemia without coma (principal); E86.0 Dehydration; R94.31 Abnormal electrocardiogram [ECG] [EKG]; E10.42 Type 1 diabetes mellitus with diabetic polyneuropathy; I10 Essential (primary) hypertension; Z79.82 Long term (current) use of aspirin
CPT/HCPCS: 36415; 71045; 80053; 83605; 83690; 84484; 85025; 87040; 93005; 96360; 99284

== ENCOUNTER 2019-10-11 10:35 | Outpatient (CLI) | payer MEDICARE, BC ==
[2019-10-11 13:16] LABS: ALBUMIN 3.4 g/dL (3.2-5.5); ALBUMIN/GLOBULIN RATIO 1.3 (1.0-2.2); BILIRUBIN,TOTAL 0.4 mg/dL (0.2-1.0); CALCIUM 8.6 mg/dL (8.5-10.3); CREATININE 0.9 mg/dL (0.6-1.2)
[2019-10-11 13:20] LABS: BASOPHILS # (AUTO) 0.1 10^3/uL (0.0-0.1); BASOPHILS % (AUTO) 0.7 %; EOSINOPHILS # (AUTO) 0.2 10^3/uL (0.0-0.7); HGB - HEMOGLOBIN 10.3 g/dL (14.0-18.0); LYMPHOCYTES # (AUTO) 0.7 10^3/uL (1.5-3.5); LYMPHOCYTES % (AUTO) 6.9 %; MEAN CORPUSCULAR HEMOGLOBIN 30.3 pg (27.0-31.0); MEAN CORPUSCULAR HGB CONC 30.4 g/dL (32.0-36.0); MEAN CORPUSCULAR VOLUME 99.7 fL (80.0-94.0); MEAN PLATELET VOLUME 11.7 fL (7.4-11.4); MONOCYTES # (AUTO) 0.8 10^3/uL (0.0-1.0); MONOCYTES % (AUTO) 8.6 %; NEUTROPHILS # (AUTO) 7.8 10^3/uL (1.5-6.6); NEUTROPHILS % (AUTO) 81.3 %; PLT - PLATELET COUNT 278 10^3/uL (130-450); RED CELL DISTRIBUTION WIDTH 15.2 % (12.0-15.0); WHITE BLOOD COUNT 9.7 x10^3/uL (4.8-10.8)
[2019-10-11 13:22] LABS: HB2 TOTAL 10.3 g/dL; HEMOGLOBIN A1C 0.55 g/dL
== END 2019-10-11 23:59 | disposition home or self-care (01) ==
LOC: LAB.WCP 10:35
PROVIDERS: ATTEND Family Medicine
DX: K92.2 Gastrointestinal hemorrhage, unspecified (principal); E10.9 Type 1 diabetes mellitus without complications
CPT/HCPCS: 36415; 80053; 83036; 85025

== ENCOUNTER 2019-10-27 13:02 | Emergency (ER) | payer MEDICARE, BC ==
[2019-10-27] MEDS ORDERED: SODIUM CHLORIDE 0.9% 1,000 ML IV ONE (14:31)
[2019-10-27] MEDS ORDERED: INSULIN REGULAR HUMAN 100 UNIT/1 ML 10 ML MDV IVP STA (14:31)
--- NOTE | 2019-10-27 14:34 | ED Physician Documentation ---
History of Present Illness - Stated complaint Stated Complaint: INCREASED BLOOD SUGAR - Chief complaint Chief Complaint: General - History obtained from History obtained from: Patient - History of Present Illness Timing: Today (He went for cardiac rehab today, and was referred over here because his blood sugar was too high. There was a secondhand verbal report of him being hypotensive but no numbers were given. Of note his Dexcom blood sugar reader currently is reading 320 although his fingerstick is closer to 500. He feels fine, no chest pain, trouble breathing, fevers, fatigue.) Review of Systems Constitutional: denies: Fever, Chills Throat: denies: Dental pain / toothache, Sore throat Cardiac: denies: Chest pain / pressure, Palpitations Respiratory: denies: Dyspnea, Cough GI: denies: Abdominal Pain, Nausea, Diarrhea PD PAST MEDICAL HISTORY - Past Medical History Cardiovascular: Hypertension, High cholesterol Neuro: Peripheral neuropathy Endocrine/Autoimmune: Type 1 diabetes - Past Surgical History Past Surgical History: Yes Ortho: Knee replacement - Present Medications Home Medications: Ambulatory Orders Medication Instructions Recorded Confirmed Aspirin [Adult Aspirin] 81 mg PO DAILY 06/18/18 06/18/18 Cholecalciferol (Vitamin D3) 1,000 unit PO DAILY 06/18/18 06/18/18 [Vitamin D3] Gabapentin [Neurontin] 600 mg PO TID 06/18/18 06/18/18 Insulin Glargine [Lantus Solostar] 30 unit SQ DAILY 06/18/18 06/18/18 Insulin Lispro [Humalog Kwikpen 0 - 10 unit SUBQ TIDWM 06/18/18 06/18/18 U-100] Multivitamin [Multiple Vitamins] 1 each PO DAILY 06/18/18 06/18/18 Pen Needle, Diabetic [Pen Needle] 1 each MC QID 06/18/18 06/18/18 Prednisone [Aurora] 3 mg PO DAILY 06/18/18 06/18/18 Simvastatin 20 mg PO DAILY PM 06/18/18 06/18/18 Varenicline Tartrate [Chantix] 1 mg PO BID 06/18/18 06/18/18 lisinopriL [Lisinopril] 10 mg PO DAILY 06/18/18 06/18/18 - Allergies Allergies/Adverse Reactions: Allergies Allergy/AdvReac Type Severity Reaction Status Date / Time No Known Drug Allergies Allergy Verified 10/27/19 13:04 - Social History Does the pt smoke?: No Smoking Status: Never smoker Does the pt drink ETOH?: No Does the pt have substance abuse?: No - Immunizations Immunizations are current?: Yes - POLST Patient has POLST: No PD ED PE NORMAL - Vitals Vital signs reviewed: Yes - General General: Alert and oriented X 3, No acute distress - HEENT HEENT: PERRL, EOMI - Neck Neck: Supple, no meningeal sign, No bony TTP - Cardiac Cardiac: RRR, No murmur - Respiratory Respiratory: No respiratory distress, Clear bilaterally - Abdomen Abdomen: Non tender - Back Back: No CVA TTP, No spinal TTP - Derm Derm: Normal color, Warm and dry - Extremities Extremities: No edema, No calf tenderness / cord - Neuro Neuro: Alert and oriented X 3, Normal speech Results - Vitals Vitals: Vital Signs - 24 hr 10/27/19 10/27/19 13:04 16:49 Heart Rate 55 L 62 Heart Rate [ 60 Standing] Heart Rate [ 62 Supine] Respiratory 14 21 Rate Blood Pressure 106/56 L 164/65 H Blood Pressure 129/78 [Standing] Blood Pressure 164/65 H [Supine] O2 Saturation 100 Oxygen O2 Source Room air - Labs Labs: Laboratory Tests 10/27/19 10/27/19 10/27/19 13:11 14:40 14:40 WBC 8.7 RBC 3.70 L Hgb 10.8 L Hct 34.6 L MCV 93.5 MCH 29.2 MCHC 31.2 L RDW 14.7 Plt Count 271 MPV 12.0 H Neut # (Auto) 6.8 H Lymph # (Auto) 0.9 L Hubbard # (Auto) 0.7 Eos # (Auto) 0.1 Baso # (Auto) 0.1 Absolute Nucleated RBC 0.00 Nucleated RBC % 0.0 Sodium 137 Potassium 4.6 Chloride 98 L Carbon Dioxide 30 Anion Gap 9.0 BUN 52 H Creatinine 1.1 Estimated GFR (MDRD) 65 L Glucose 496 H POC Whole Bld Glucose 488 H Calcium 10.2 Total Bilirubin 0.4 AST 15 ALT 21 Alkaline Phosphatase 114 Total Protein 7.0 Albumin 3.8 Globulin 3.2 Albumin/Globulin Ratio 1.2 Lipase 59 H 10/27/19 16:46 WBC RBC Hgb Hct MCV MCH MCHC RDW Plt Count MPV Neut # (Auto) Lymph # (Auto) Hubbard # (Auto) Eos # (Auto) Baso # (Auto) Absolute Nucleated RBC Nucleated RBC % Sodium Potassium Chloride Carbon Dioxide Anion Gap BUN Creatinine Estimated GFR (MDRD) Glucose POC Whole Bld Glucose 324 H Calcium Total Bilirubin AST ALT Alkaline Phosphatase Total Protein Albumin Globulin Albumin/Globulin Ratio Lipase PD MEDICAL DECISION MAKING - ED course ED course: 79-year-old gentleman presents with asymptomatic elevated blood sugar. Of note his glucometer is inconsistent with our fingersticks. That may be causative since he doses his insulin based on this. We will have 1 of the diabetic educators come over and see if they can troubleshoot his device while doing some blood work and giving him some IV fluids and insulin. 79-year-old gentleman presents with elevated blood sugars, discordant readings on his blood sugar reader. The family life educator came by and we discussed the case. She saw the patient and counseled him to. Which he tells me is that when there is significant dehydration, the interstitial blood glucose readings can be discordant from capillary readings. His labs do suggest dehydration with elevated BUN and he is administered 2 L of crystalloid. Departure - Departure Disposition: 01 Home, Self Care Clinical Impression: Dehydration, Hyperglycemia Condition: Good Record reviewed to determine appropriate education?: Yes Instructions: ED Dehydration Comments: Drink plenty of fluids, return for new or worsening symptoms, follow-up with your doctor in the next few days for recheck.
[2019-10-27 14:53] LABS: BASOPHILS # (AUTO) 0.1 10^3/uL (0.0-0.1); BASOPHILS % (AUTO) 0.6 %; EOSINOPHILS # (AUTO) 0.1 10^3/uL (0.0-0.7); EOSINOPHILS % (AUTO) 1.5 %; HGB - HEMOGLOBIN 10.8 g/dL (14.0-18.0); LYMPHOCYTES # (AUTO) 0.9 10^3/uL (1.5-3.5); LYMPHOCYTES % (AUTO) 10.6 %; MEAN CORPUSCULAR HEMOGLOBIN 29.2 pg (27.0-31.0); MEAN CORPUSCULAR HGB CONC 31.2 g/dL (32.0-36.0); MEAN CORPUSCULAR VOLUME 93.5 fL (80.0-94.0); MONOCYTES # (AUTO) 0.7 10^3/uL (0.0-1.0); NEUTROPHILS # (AUTO) 6.8 10^3/uL (1.5-6.6); PLT - PLATELET COUNT 271 10^3/uL (130-450); RED CELL DISTRIBUTION WIDTH 14.7 % (12.0-15.0); WHITE BLOOD COUNT 8.7 x10^3/uL (4.8-10.8)
[2019-10-27 15:07] LABS: ALBUMIN 3.8 g/dL (3.2-5.5); ALBUMIN/GLOBULIN RATIO 1.2 (1.0-2.2); BILIRUBIN,TOTAL 0.4 mg/dL (0.2-1.0); CALCIUM 10.2 mg/dL (8.5-10.3); CREATININE 1.1 mg/dL (0.6-1.2)
[2019-10-27] MEDS ORDERED: LACTATED RINGERS 1,000 ML IV STA (16:12)
[2019-10-27 16:51] VITALS: BP 164/65
== END 2019-10-27 17:13 | disposition home or self-care (01) ==
LOC: ED 13:02
DX: E86.0 Dehydration (principal); E10.65 Type 1 diabetes mellitus with hyperglycemia; E10.42 Type 1 diabetes mellitus with diabetic polyneuropathy; I10 Essential (primary) hypertension; Z79.82 Long term (current) use of aspirin
CPT/HCPCS: 36415; 80053; 83690; 85025; 96360; 96361; 99283; J1815; J7120

== ENCOUNTER 2019-12-21 07:00 | Outpatient (CLI) | payer MEDICARE, BC | END 2019-12-21 23:59 | disposition home or self-care (01) | LOC: LAB.WCP 07:00 | PROVIDERS: ATTEND Family Medicine | DX: K92.2 Gastrointestinal hemorrhage, unspecified (principal) | CPT/HCPCS: 82274 ==

== ENCOUNTER 2020-02-25 11:26 | Emergency (ER) | payer MEDICARE, BC ==
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
[2020-02-25 14:43] VITALS: BP 110/70
== END 2020-02-25 15:12 | disposition home or self-care (01) ==
LOC: ED 11:26
DX: T25.232A Burn of second degree of left toe(s) (nail), initial encounter (principal); T25.231A Burn of second degree of right toe(s) (nail), initial encounter; X08.8XXA Exposure to other specified smoke, fire and flames, initial encounter; Y93.H2 Activity, gardening and landscaping; Y92.007 Garden or yard of unspecified non-institutional (private) residence as the place of occurrence of the external cause; E10.42 Type 1 diabetes mellitus with diabetic polyneuropathy; I10 Essential (primary) hypertension; Z79.82 Long term (current) use of aspirin
CPT/HCPCS: 99282; 99284

== ENCOUNTER 2020-02-28 11:48 | Outpatient (CLI) | payer MEDICARE, BC ==
[2020-02-28 13:28] LABS: BASOPHILS # (AUTO) 0.1 10^3/uL (0.0-0.1); BASOPHILS % (AUTO) 0.9 %; EOSINOPHILS # (AUTO) 0.3 10^3/uL (0.0-0.7); EOSINOPHILS % (AUTO) 3.7 %; HGB - HEMOGLOBIN 11.2 g/dL (14.0-18.0); LYMPHOCYTES % (AUTO) 14.6 %; MEAN CORPUSCULAR HEMOGLOBIN 30.6 pg (27.0-31.0); MEAN CORPUSCULAR HGB CONC 31.3 g/dL (32.0-36.0); MEAN CORPUSCULAR VOLUME 97.8 fL (80.0-94.0); MEAN PLATELET VOLUME 11.3 fL (7.4-11.4); MONOCYTES # (AUTO) 0.7 10^3/uL (0.0-1.0); NEUTROPHILS # (AUTO) 4.7 10^3/uL (1.5-6.6); NEUTROPHILS % (AUTO) 69.4 %; PLT - PLATELET COUNT 273 10^3/uL (130-450); RED BLOOD COUNT 3.66 10^6/uL (4.70-6.10); RED CELL DISTRIBUTION WIDTH 13.7 % (12.0-15.0); WHITE BLOOD COUNT 6.7 x10^3/uL (4.8-10.8)
[2020-02-28 13:54] LABS: ALBUMIN 3.6 g/dL (3.2-5.5); ALBUMIN/GLOBULIN RATIO 1.1 (1.0-2.2); ALKALINE PHOSPHATASE 86 IU/L (42-121); ALT ALANINE AMINOTRANSFERASE 11 IU/L (10-60); AST ASPARTATE AMINOTRANSFERASE 15 IU/L (10-42); BILIRUBIN,TOTAL 0.4 mg/dL (0.2-1.0); BUN - BLOOD UREA NITROGEN 32 mg/dL (6-20); CARBON DIOXIDE - CO2 27 mmol/L (21-32); CHLORIDE 106 mmol/L (101-111); CHOL/HDL RATIO 3.3 (<5.0); CHOLESTEROL 176 mg/dL; CREATININE 0.9 mg/dL (0.6-1.2); GLUCOSE 114 mg/dL (70-100); HDL CHOLESTEROL 53 mg/dL; LDL CHOLESTEROL,CALCULATED 109 mg/dL; LDL/HDL RATIO 2.1 (<3.6); SODIUM 137 mmol/L (135-145); VLDL CHOLESTEROL 14 mg/dL
[2020-02-28 14:26] LABS: HB2 TOTAL 11.4 g/dL; HEMOGLOBIN A1C 0.69 g/dL; HEMOGLOBIN A1C % 7.7 % (4.6-6.2)
== END 2020-02-28 23:59 | disposition home or self-care (01) ==
LOC: LAB.WCP 11:48
PROVIDERS: ATTEND Family Medicine
DX: K92.2 Gastrointestinal hemorrhage, unspecified (principal); I25.10 Atherosclerotic heart disease of native coronary artery without angina pectoris; E10.9 Type 1 diabetes mellitus without complications
CPT/HCPCS: 36415; 80053; 80061; 82985; 83036; 83721; 85025

== ENCOUNTER 2020-03-03 12:30 | Outpatient (CLI) | payer MEDICARE, BC | END 2020-03-03 23:59 | disposition home or self-care (01) | LOC: LAB.R 12:30 | PROVIDERS: ATTEND Family Medicine | DX: T30.0 Burn of unspecified body region, unspecified degree (principal) | CPT/HCPCS: 87070; 87077; 87181; 87205 ==

== ENCOUNTER 2020-05-02 13:33 | Outpatient (CLI) | payer MEDICARE, BC ==
--- NOTE | 2020-05-02 15:32 | XRAY Report ---
PROCEDURE: Abdomen Acute INDICATIONS: BOWEL OBSTRUCTION TECHNIQUE: One view chest and two views of the abdomen were acquired. COMPARISON: CT abdomen pelvis 07/30/2017 FINDINGS: Surgical changes and devices: None. Chest: Lungs are clear. Heart size is normal. No pleural effusions. No pneumoperitoneum. Abdomen: Bowel gas pattern demonstrates several small air-fluid levels. No suspicious calcifications . Visualized solid organ contours appear normal. Presumed gastrointestinal capsule is noted overlyi ng the lateral left hemiabdomen likely within the region of the descending colon. Bones: No suspicious bony lesions. IMPRESSION: Capsule as above. Scattered small bowel fluid levels suggestive of ileus versus developi ng partial obstruction. Reviewed by: Brynn Rose MD on 05/02/2020 3:30 PM PDT Approved by: Brynn Rose MD on 05/02/2020 3:30 PM PDT Station ID: [id number]
== END 2020-05-02 13:34 | disposition home or self-care (01) ==
LOC: DI 13:33
PROVIDERS: ATTEND Internal Medicine
DX: T18.4XXA Foreign body in colon, initial encounter (principal)
CPT/HCPCS: 74022

== ENCOUNTER 2020-05-04 09:50 | Outpatient (CLI) | payer MEDICARE, BC ==
[2020-05-04] MEDS ORDERED: IOVERSOL 320 50 ML VIAL ONE (10:05)
[2020-05-04] MEDS ORDERED: IOVERSOL 320 100 ML VIAL IVP ONE ×2 (10:06→11:22)
--- NOTE | 2020-05-04 12:46 | CT Report ---
PROCEDURE: Abdomen/Pelvis W INDICATIONS: NO ORAL- LOCATION OF PILLCAM CONTRAST: IV CONTRAST: Optiray 320 ml: 100 PO CONTRAST: *NO PO CONTRAST TECHNIQUE: After the administration of oral and intravenous contrast, 5 mm thick sections acquired from the diap hragms to the symphysis. 5 mm thick coronal and sagittal reformats were acquired. For radiation dos e reduction, the following was used: automated exposure control, adjustment of mA and/or kV accordin g to patient size. COMPARISON: Radiographs of 05/02/2020 FINDINGS: Image quality: Excellent. ABDOMEN: Lung bases: Lung bases demonstrate dense vertical posterior medial atelectatic change bilaterally. H eavy coronary artery calcification is present.. Heart size is at the upper limits normal. Solid organs: Liver and spleen are normal in size and enhancement. Gallbladder is decompressed Juan Miguel iary system is non dilated. Pancreas is atrophied but enhances normally. No adrenal nodules. Kidne ys demonstrate normal size and enhancement, without hydronephrosis. Tiny cortical medullary left mid pole cyst. Peritoneum and bowel: No evidence of PillCam in the stomach, small, or large bowel. Previously descr ibed foreign body projecting over the descending colon is on the left anterolateral skin surface cons istent with patient's glucose monitor. There is mildly increased quantity of solid stool in the rectu m. No evidence of small bowel obstruction. Bowel loops demonstrate normal wall thickness and caliber. No free fluid or air. Nodes and vessels: No retroperitoneal or mesenteric adenopathy by size criteria. Aorta and inferior vena cava are normal in size. Heavy abdominal aortic and branch artery calcifications. Miscellaneous: No ventral hernias. PELVIS: Genitourinary: Bladder wall thickness is normal. Miscellaneous small fat-containing right inguinal hernia. Partially imaged clip of vasectomy. Bones: No suspicious bony lesions. No vertebral body compression fractures. Degenerative facet mariah nges on the right at the L5-S1 level are particularly severe. IMPRESSION: 1. No retained pill camera in the intestinal tract. 2. Cutaneously placed left upper quadrant glucose monitor overlies the descending colon on radiograph s. 3. Heavy coronary artery and systemic atherosclerotic calcification. 4. Mild colorectal obstipation. Reviewed by: Deborah Baer MD on 05/04/2020 12:44 PM PDT Approved by: Deborah Baer MD on 05/04/2020 12:44 PM PDT Station ID: [id number]
== END 2020-05-04 09:51 | disposition home or self-care (01) ==
LOC: LAB 09:50 → DI 09:51
PROVIDERS: ATTEND Internal Medicine
DX: I25.10 Atherosclerotic heart disease of native coronary artery without angina pectoris (principal); K59.00 Constipation, unspecified
CPT/HCPCS: 36415; 74177; 82565; Q9967

== ENCOUNTER 2020-05-25 11:40 | Outpatient (CLI) | payer MEDICARE, BC ==
[2020-05-25 18:43] LABS: BASOPHILS % (AUTO) 0.2 %; EOSINOPHILS # (AUTO) 0.1 10^3/uL (0.0-0.7); LYMPHOCYTES # (AUTO) 1.3 10^3/uL (1.5-3.5); LYMPHOCYTES % (AUTO) 14.5 %; MEAN CORPUSCULAR HEMOGLOBIN 29.1 pg (27.0-31.0); MEAN CORPUSCULAR HGB CONC 29.7 g/dL (32.0-36.0); MEAN CORPUSCULAR VOLUME 97.9 fL (80.0-94.0); MEAN PLATELET VOLUME 11.7 fL (7.4-11.4); MONOCYTES # (AUTO) 0.8 10^3/uL (0.0-1.0); MONOCYTES % (AUTO) 8.8 %; NEUTROPHILS # (AUTO) 6.5 10^3/uL (1.5-6.6); NEUTROPHILS % (AUTO) 74.9 %; PLT - PLATELET COUNT 267 10^3/uL (130-450); RED BLOOD COUNT 3.78 10^6/uL (4.70-6.10); RED CELL DISTRIBUTION WIDTH 15.1 % (12.0-15.0); WHITE BLOOD COUNT 8.7 x10^3/uL (4.8-10.8)
[2020-05-25 19:08] LABS: HB2 TOTAL 11.7 g/dL; HEMOGLOBIN A1C 0.92 g/dL; HEMOGLOBIN A1C % 9.3 % (4.6-6.2)
[2020-05-25 19:15] LABS: % IRON SATURATION 28 % (20-50); ALBUMIN 3.4 g/dL (3.2-5.5); ALBUMIN/GLOBULIN RATIO 1.2 (1.0-2.2); ALKALINE PHOSPHATASE 81 IU/L (42-121); ALT ALANINE AMINOTRANSFERASE 18 IU/L (10-60); AST ASPARTATE AMINOTRANSFERASE 13 IU/L (10-42); BILIRUBIN,TOTAL 0.4 mg/dL (0.2-1.0); BUN - BLOOD UREA NITROGEN 25 mg/dL (6-20); CALCIUM 9.1 mg/dL (8.5-10.3); CARBON DIOXIDE - CO2 29 mmol/L (21-32); CHLORIDE 105 mmol/L (101-111); CHOL/HDL RATIO 2.7 (<5.0); CHOLESTEROL 178 mg/dL; CREATININE 0.9 mg/dL (0.6-1.2); GLUCOSE 146 mg/dL (70-100); HDL CHOLESTEROL 67 mg/dL; IRON 86 ug/dL (45-182); LDL CHOLESTEROL,CALCULATED 95 mg/dL; LDL/HDL RATIO 1.4 (<3.6); SODIUM 140 mmol/L (135-145); TOTAL IRON BINDING CAPACITY 302 ug/dL (250-450); TOTAL PROTEIN 6.2 g/dL (6.7-8.2); TRANSFERRIN 216 mg/dL (180-329); VLDL CHOLESTEROL 16 mg/dL
[2020-05-25 19:20] LABS: FERRITIN 37.2 ng/mL (23.9-336.2)
== END 2020-05-25 23:59 | disposition home or self-care (01) ==
LOC: LAB.WCP 11:40
PROVIDERS: ATTEND Family Medicine
DX: E10.9 Type 1 diabetes mellitus without complications (principal)
CPT/HCPCS: 36415; 80053; 80061; 82607; 82728; 83036; 83540; 83721; 84466; 85025

== ENCOUNTER 2020-06-08 15:50 | Outpatient (CLI) | payer MEDICARE, BC ==
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
== END 2020-06-08 15:51 | disposition home or self-care (01) ==
LOC: DI 15:50
PROVIDERS: ATTEND Family Medicine
DX: R94.39 Abnormal result of other cardiovascular function study (principal)
CPT/HCPCS: 93922; 93925

== ENCOUNTER 2020-06-27 13:45 | Outpatient (CLI) | payer MEDICARE, BC | END 2020-06-27 23:59 | disposition home or self-care (01) | LOC: LAB.R 13:45 | PROVIDERS: ATTEND Family Medicine | DX: T30.0 Burn of unspecified body region, unspecified degree (principal) | CPT/HCPCS: 87070; 87181; 87205 ==

== ENCOUNTER 2020-09-04 17:11 | Emergency (ER) | payer MEDICARE, BC ==
[2020-09-04] MEDS ORDERED: HYDROmorphone 1 MG/ML CARPUJECT IVP STA ×2 (17:33→19:21)
--- NOTE | 2020-09-04 17:35 | ED Physician Documentation ---
PD HPI LOWER EXT INJURY - Stated complaint Stated Complaint: LEFT LEG PAIN - Chief complaint Chief Complaint: Ext Problem - History obtained from History obtained from: Patient - History of Present Illness PD HPI LOW EXT INJURY LOCATION: Left - Additional information Additional information: 79-year-old gentleman with history of bullous pemphigoid, temporal arteritis, peripheral vascular disease had angioplasty of the left leg done by Dr. Dunne in [place] about 2 months ago. Over last 2 to 3 days has developed severe migratory pains of the left leg, sometimes in the buttock sometimes in the calf,, sometimes behind the knee. It is much worse with movement or with bearing weight. He is never had this before. Review of Systems Ten Systems: 10 systems reviewed and negative Constitutional: denies: Fever, Chills Cardiac: denies: Chest pain / pressure, Palpitations Respiratory: denies: Dyspnea, Cough GI: denies: Abdominal Pain PD PAST MEDICAL HISTORY - Past Medical History Cardiovascular: Hypertension, High cholesterol, Coronary artery disease Respiratory: COPD Neuro: Peripheral neuropathy Endocrine/Autoimmune: Type 1 diabetes Psych: Depression, Anxiety - Past Surgical History Past Surgical History: Yes Ortho: Knee replacement Cardiovascular: Other - Present Medications Home Medications: Ambulatory Orders Medication Instructions Recorded Confirmed Aspirin [Adult Aspirin] 81 mg PO DAILY 06/18/18 09/01/20 Cholecalciferol (Vitamin D3) 2,000 unit PO DAILY 06/18/18 09/01/20 [Vitamin D3] Insulin Lispro [Humalog Kwikpen 0 - 10 unit SUBQ QID 06/18/18 09/01/20 U-100] Multivitamin [Multiple Vitamins] 1 each PO DAILY 06/18/18 09/01/20 Pen Needle, Diabetic [Pen Needle] 1 each MC QID 06/18/18 09/01/20 Prednisone [Aurora] 5 mg PO DAILY 06/18/18 09/01/20 Varenicline Tartrate [Chantix] 1 mg PO BID 06/18/18 09/01/20 Albuterol Sulfate [Proair Hfa 1 - 2 puffs INH Q4H PRN 11/22/19 09/01/20 Inhaler] Ascorbic Acid [Vitamin C] 1,000 mg PO DAILY 11/22/19 09/01/20 Furosemide 10 mg PO DAILY 11/22/19 09/01/20 Insulin Degludec [Tresiba] 17 unit SQ DAILY 11/22/19 09/01/20 Folic Acid 1 tab PO DAILY 07/19/20 09/01/20 Methotrexate 10 mg PO Q7D 07/19/20 09/01/20 Carvedilol [Coreg] 6.25 mg PO BID 08/16/20 09/01/20 Lisinopril [Prinivil] 1 tab PO DAILY 08/25/20 09/01/20 Gabapentin [Neurontin] 300 mg PO TID #60 capsule 09/04/20 HYDROcod/ACETAM 5/325 [[place] 5/325] 1 - 2 tab PO Q6H PRN #15 tablet 09/04/20 - Allergies Allergies/Adverse Reactions: Allergies Allergy/AdvReac Type Severity Reaction Status Date / Time primidone Allergy Anaphylaxis Verified 09/04/20 17:23 - Social History Does the pt smoke?: No Smoking Status: Former smoker Does the pt drink ETOH?: No Does the pt have substance abuse?: No - Immunizations Immunizations are current?: Yes - POLST Patient has POLST: No PD ED PE NORMAL - Vitals Vital signs reviewed: Yes - General General: Alert and oriented X 3, No acute distress - HEENT HEENT: PERRL, EOMI - Neck Neck: Supple, no meningeal sign, No bony TTP - Cardiac Cardiac: RRR, No murmur - Respiratory Respiratory: No respiratory distress, Clear bilaterally - Extremities Extremities: Other (Ulcer in the left foot, has about a 4-second cap refill. He has an excellent femoral pulse on the left. There is no asymmetry of the legs. He has mildly diminished sensation on the left lateral calf compared to the right, the remainder of the leg has symmetric sensation.) - Neuro Neuro: Alert and oriented X 3, Normal speech Results - Vitals Vitals: Vital Signs - 24 hr 09/04/20 09/04/20 09/04/20 17:20 17:45 18:54 Temperature 36.3 C L Heart Rate 67 68 63 Respiratory 16 16 16 Rate Blood Pressure 133/83 H 195/94 H 196/90 H O2 Saturation 100 100 100 09/04/20 09/04/20 09/04/20 20:33 20:39 21:34 Temperature Heart Rate 69 62 68 Respiratory 16 18 16 Rate Blood Pressure 205/80 H 191/90 H 174/89 H O2 Saturation 100 100 98 Oxygen O2 Source Room air - Labs Labs: Laboratory Tests 09/04/20 09/04/20 17:35 17:35 WBC 8.7 RBC 4.33 L Hgb 12.9 L Hct 39.9 L MCV 92.1 MCH 29.8 MCHC 32.3 RDW 14.9 Plt Count 240 MPV 11.2 Neut # (Auto) 6.5 Lymph # (Auto) 1.1 L [place] # (Auto) 0.9 Eos # (Auto) 0.2 Baso # (Auto) 0.0 Absolute Nucleated RBC 0.00 Nucleated RBC % 0.0 Sodium 138 Potassium 4.2 Chloride 104 Carbon Dioxide 25 Anion Gap 9.0 BUN 28 H Creatinine 0.8 Estimated GFR (MDRD) 93 Glucose 189 H Calcium 9.2 - Rads (name of study) L spine XR Radiology: EMP read contemporaneously (DJD/DDD) PD MEDICAL DECISION MAKING - ED course ED course: 79-year-old gentleman with migratory left lower extremity pain. He does have vascular disease and had difficult if not impossible to palpate pedal pulses. That said the history is inconsistent with an arterial occlusion of the left lower extremity and he does have flow on ultrasound. There was no evidence of DVT on ultrasound. His history is most consistent with sciatica and he was feeling better after pain meds, it seems that Toradol and gabapentin were more helpful than Dilaudid. Departure - Departure Disposition: 01 Home, Self Care Clinical Impression: Pain in extremity Qualifiers: Extremity pain location: lower extremity Laterality: left Qualified Code(s): M79.605 - Pain in left leg Sciatica Qualifiers: Laterality: left Qualified Code(s): M54.32 - Sciatica, left side Condition: Stable Record reviewed to determine appropriate education?: Yes Instructions: ED Sciatica Prescriptions: Gabapentin [Neurontin] 300 mg PO TID #60 capsule HYDROcod/ACETAM 5/325 [[place] 5/325] 1 - 2 tab PO Q6H PRN #15 tablet PRN Reason: Pain Comments: As discussed, you do have vascular disease that is known in the left lower extremity, the ultrasound of the arterial system showed diffuse calcified plaque, but there is most monophasic flow in the PT and DP arteries. There is no evidence of DVT. You should follow-up with your primary care physician on Wednesday as scheduled. Also with your vascular surgeon. Return as needed if for new or worsening or uncontrolled symptoms. NOTE TO HIM: Please copy this report [facility] [address] [place] [id number] Discharge Date/Time: 09/04/20 21:36
[2020-09-04 17:49] LABS: BASOPHILS % (AUTO) 0.5 %; EOSINOPHILS # (AUTO) 0.2 10^3/uL (0.0-0.7); EOSINOPHILS % (AUTO) 2.6 %; HGB - HEMOGLOBIN 12.9 g/dL (14.0-18.0); LYMPHOCYTES # (AUTO) 1.1 10^3/uL (1.5-3.5); LYMPHOCYTES % (AUTO) 12.5 %; MEAN CORPUSCULAR HEMOGLOBIN 29.8 pg (27.0-31.0); MEAN CORPUSCULAR HGB CONC 32.3 g/dL (32.0-36.0); MEAN CORPUSCULAR VOLUME 92.1 fL (80.0-94.0); MEAN PLATELET VOLUME 11.2 fL (7.4-11.4); MONOCYTES # (AUTO) 0.9 10^3/uL (0.0-1.0); MONOCYTES % (AUTO) 9.7 %; NEUTROPHILS # (AUTO) 6.5 10^3/uL (1.5-6.6); NEUTROPHILS % (AUTO) 74.1 %; PLT - PLATELET COUNT 240 10^3/uL (130-450); RED BLOOD COUNT 4.33 10^6/uL (4.70-6.10); RED CELL DISTRIBUTION WIDTH 14.9 % (12.0-15.0); WHITE BLOOD COUNT 8.7 x10^3/uL (4.8-10.8)
[2020-09-04 18:07] LABS: CALCIUM 9.2 mg/dL (8.5-10.3); CREATININE 0.8 mg/dL (0.6-1.2)
--- NOTE | 2020-09-04 18:47 | XRAY Report ---
PROCEDURE: Lumbar Spine 2 View INDICATIONS: back and LLE pain TECHNIQUE: 3 views of the lumbar spine were acquired. COMPARISON: None. FINDINGS: Bones: 5 [id number] vertebrae are present. There is normal bony alignment. No vertebral body compression fractures. No suspicious bony lesions. There is moderate disc space narrowing seen at L3-L4 and L4-L5. Milder degenerative changes are seen elsewhere. Multiple levels of bridging anterior osteophytes are seen. Facet arthropathy is seen, w hich is most prominent inferiorly. Soft tissues: Overlying bowel gas pattern is normal. No suspicious soft tissue calcifications. Ath erosclerotic calcification is seen. IMPRESSION: No acute plain film abnormality is seen. Lumbar spine degenerative changes are seen, which are worst at L3-L4 and L4-L5. Reviewed by: Shorty Wright MD on 09/04/2020 5:46 PM AKST Approved by: Shorty Wright MD on 09/04/2020 5:46 PM [place] Station ID: [id number]
[2020-09-04] MEDS ORDERED: DEXAMETHASONE 10 MG/ML VIAL IVP STA (20:27)
[2020-09-04] MEDS ORDERED: GABAPENTIN 100 MG CAPSULE PO STA (20:27)
[2020-09-04] MEDS ORDERED: KETOROLAC 30 MG/ML VIAL IVP STA (20:28)
--- NOTE | 2020-09-04 20:59 | Ultrasound Report ---
PROCEDURE: Duplex Ext Veins Left INDICATIONS: back and LLE pain TECHNIQUE: Real-time imaging, as well as color and pulse Doppler interrogation, were performed of the lower extr emity deep veins from the inguinal ligament to the popliteal fossa. COMPARISON: None. FINDINGS: The deep veins are normally compressible, and free of intraluminal thrombus. Color and pu lse Doppler demonstrate normal phasic intraluminal flow. There is normal augmentation response to di stal compression maneuver. Soft tissues demonstrate a hematoma over the medial knee measuring 5.0 x 1.3 x 2.8 cm. IMPRESSION: No evidence of DVT in the left lower extremity. Reviewed by: Johnny Swain on 09/04/2020 8:57 PM PST Approved by: Johnny Swain on 09/04/2020 8:57 PM [facility] Station ID: [id number]
--- NOTE | 2020-09-04 21:13 | Ultrasound Report ---
PROCEDURE: 2. INDICATIONS: back and LLE pain TECHNIQUE: Color and pulse Doppler interrogation was performed of the left lower extremity arterial system, with image documentation. COMPARISON: 06/08/2020 FINDINGS: Common femoral artery: 74 cm/sec, with biphasic flow. Deep femoral artery: 57 cm/sec, with biphasic flow. Proximal superficial femoral artery: 54 cm/sec, with biphasic flow. Mid superficial femoral artery: 92.3 cm/sec, with biphasic flow. Distal superficial femoral artery: 24.5 cm/sec, with biphasic flow. Popliteal artery: 46.3 cm/sec, with biphasic flow. Posterior tibial artery: 50.5 cm/sec, with biphasic/monophasic flow. Anterior tibial artery/dorsalis pedis: 39.3/20 cm/sec, with monophasic/monophasic flow. Castro-scale imaging description: There are severe calcifications throughout the left leg. IMPRESSION: 1. The left lower extremity demonstrates diffuse calcified plaque without hemodynamically significant focal stenosis. 2. There is monophasic flow in the posterior tibial artery proximally and the AMANDA/dorsalis pedis cons istent with diffuse small vessel disease. Reviewed by: Johnny Swain on 09/04/2020 9:11 PM PST Approved by: Johnny Swain on 09/04/2020 9:11 PM PST Station ID: [id number]
[2020-09-04] MEDS ORDERED: HYDROcod/ACET 5/325 Prepack 4 PO STA (21:15)
[2020-09-04 21:35] VITALS: BP 174/89
== END 2020-09-04 21:36 | disposition home or self-care (01) ==
LOC: ED 17:11
DX: M79.605 Pain in left leg (principal); M51.16 Intervertebral disc disorders with radiculopathy, lumbar region; M47.26 Other spondylosis with radiculopathy, lumbar region; E10.621 Type 1 diabetes mellitus with foot ulcer; L97.529 Non-pressure chronic ulcer of other part of left foot with unspecified severity; E10.51 Type 1 diabetes mellitus with diabetic peripheral angiopathy without gangrene; E10.42 Type 1 diabetes mellitus with diabetic polyneuropathy; I10 Essential (primary) hypertension; Z87.891 Personal history of nicotine dependence; Z79.82 Long term (current) use of aspirin
CPT/HCPCS: 36415; 72100; 80048; 85025; 93926; 93971; 96374; 96375; 96376; 99284; A9270; J1170

== ENCOUNTER 2020-09-19 12:45 | Outpatient (CLI) | payer MEDICARE, BC | END 2020-09-19 12:46 | disposition critical access hospital (66) | LOC: EMS 12:45 | PROVIDERS: ATTEND Surgery | DX: R53.1 Weakness (principal); R10.32 Left lower quadrant pain | CPT/HCPCS: A0425; A0427 ==

== ENCOUNTER 2020-09-19 13:32 | Observation (INO) | payer MEDICARE, BC ==
[2020-09-19] MEDS ORDERED: SODIUM CHLORIDE 0.9% 1,000 ML IV STA ×2 (13:59→18:04)
--- NOTE | 2020-09-19 14:17 | ED Physician Documentation ---
History of Present Illness - Stated complaint Stated Complaint: WEAK - Chief complaint Chief Complaint: Neuro - Additonal information Additional information: 79-year-old male presents to the emergency department for evaluation of generalized weakness. He reports that this a.m. he was in the shower and he fell because his legs were simply too weak for him to stand up anymore. He denies that at that time he was having any chest pain or shortness of breath. He was not dizzy, did not lose consciousness. He had no focal neuro deficits. He was seen in this ER recently for concerns of lower extremity injury. He does have a history of bullous pemphigoid, peripheral vascular disease, temporal arteritis, and DM. He did require angioplasty of the left leg about [address] Dunne in [place]. After the last emergency department visit he did undergo physical therapy and stated that his ability to walk had improved for about 24 to 48 hours until the last 2 days. Right now he denies that he has pain in the left leg but occ asionally has twinges of pain in the left medial thigh. He states that this is new from his last ED visit Review of Systems Constitutional: denies: Fever Eyes: reports: Reviewed and negative Ears: reports: Reviewed and negative Nose: reports: Reviewed and negative Throat: reports: Reviewed and negative Cardiac: reports: Reviewed and negative Respiratory: reports: Reviewed and negative GI: reports: Reviewed and negative : denies: Dysuria, Frequency, Hesitancy Skin: reports: Rash (Pemphigoid lesions right upper arm left shoulder left leg) Musculoskeletal: reports: Reviewed and negative Neurologic: reports: Generalized weakness. denies: Focal weakness, Numbness, Difficulty speaking, Near syncope, Syncope, Seizure, Confused, Altered mental status, Headache, Head injury, LOC Psychiatric: reports: Reviewed and negative Endocrine: reports: Reviewed and negative PD PAST MEDICAL HISTORY - Past Medical History Cardiovascular: Hypertension, High cholesterol, Coronary artery disease Respiratory: COPD Neuro: Peripheral neuropathy Endocrine/Autoimmune: Type 1 diabetes Psych: Depression, Anxiety - Past Surgical History Past Surgical History: Yes Ortho: Knee replacement Cardiovascular: Other - Present Medications Home Medications: Ambulatory Orders Medication Instructions Recorded Confirmed Aspirin [Adult Aspirin] 81 mg PO DAILY 06/18/18 09/08/20 Cholecalciferol (Vitamin D3) 2,000 unit PO DAILY 06/18/18 09/08/20 [Vitamin D3] Insulin Lispro [Humalog Kwikpen 0 - 10 unit SUBQ QID 06/18/18 09/08/20 U-100] Multivitamin [Multiple Vitamins] 1 each PO DAILY 06/18/18 09/08/20 Pen Needle, Diabetic [Pen Needle] 1 each MC QID 06/18/18 09/08/20 Prednisone [Aurora] 5 mg PO DAILY 06/18/18 09/08/20 Varenicline Tartrate [Chantix] 1 mg PO BID 06/18/18 09/08/20 Ascorbic Acid [Vitamin C] 1,000 mg PO DAILY 11/22/19 09/08/20 Insulin Degludec [Tresiba] 17 unit SQ DAILY 11/22/19 09/08/20 Folic Acid 1 tab PO DAILY 07/19/20 09/08/20 Methotrexate 10 mg PO Q7D 07/19/20 09/08/20 Carvedilol [Coreg] 6.25 mg PO BID 08/16/20 09/08/20 Gabapentin [Neurontin] 300 mg PO TID #60 capsule 09/04/20 09/08/20 HYDROcod/ACETAM 5/325 [[place] 5/325] 1 - 2 tab PO Q6H PRN #15 tablet 09/04/20 09/08/20 Ferrous Sulfate 325 mg PO DAILY 09/08/20 09/08/20 Propranolol [Inderal] 10 mg PO BID 09/08/20 09/08/20 - Allergies Allergies/Adverse Reactions: Allergies Allergy/AdvReac Type Severity Reaction Status Date / Time primidone Allergy Anaphylaxis Verified 09/19/20 13:43 - Social History Does the pt smoke?: No Smoking Status: Former smoker Does the pt drink ETOH?: No Does the pt have substance abuse?: No - Immunizations Immunizations are current?: Yes - POLST Patient has POLST: No PD ED PE EXPANDED - General General: Alert, No acute distress, Well developed/nourished - Neck Neck: Supple w/out meningeal sx, No tenderness. No: Adenopathy - Cardiac Cardiac: Regular Rate, [place], Radial strong equal, Cap refill < 2 sec (Doppler pulses only bilateral lower extremities. Cool feet but brisk cap refill.). No: Murmur Present - Respiratory Respiratory: Clear to ausultation nicole. No: Distress, Labored - Abdomen Abdomen: Normal Bowel sounds. No: Distended, Tender to palpation - Derm Derm: Normal color, Warm and dry, Other (Bullous pemphigoid lesions right upper arm left shoulder left leg. Mostly dry with an erythematous base. No drainage.) - Extremities Extremities: Normal, Decreased/absent pulse (doppler pulses BLE; cool feet, brisk cap refill. Monophasic doppler). No: Deformity, Tenderness - Neuro Neuro: Alert and Oriented X 3, Normal Sensation, Normal Speech, CNII-XII intact, PERRL, Normal finger nose, Normal speech - GCS Eye Opening: Spontaneous Motor: Obeys Commands Verbal: Oriented Total: 15 Results - Vitals Vitals: Vital Signs - 24 hr 09/19/20 09/19/20 09/19/20 13:38 16:08 17:28 Temperature 36.8 C 36.7 C Heart Rate 58 L 60 51 L Respiratory 16 24 14 Rate Blood Pressure 116/42 L 129/43 L 124/45 L O2 Saturation 96 100 97 Oxygen O2 Source Room air - EKG (time done) 1411 Rate: Rate (enter#) (62) Rhythm: Sinus bradycardia, NSR [place]: Normal Intervals: Prolonged NM QRS: Normal Ischemia: Normal ST segments Compare to prior EKG: Unchanged from prior EKG Computer interpretation: Agree with computer - Labs Labs: Laboratory Tests 09/19/20 09/19/20 09/19/20 14:13 14:13 14:13 WBC 9.6 RBC 3.93 L Hgb 11.7 L Hct 36.6 L MCV 93.1 MCH 29.8 MCHC 32.0 RDW 15.8 H Plt Count 205 MPV 10.9 Neut # (Auto) 8.0 H Lymph # (Auto) 0.7 L [place] # (Auto) 0.7 Eos # (Auto) 0.0 Baso # (Auto) 0.1 Absolute Nucleated RBC 0.00 Nucleated RBC % 0.0 Sodium 139 Potassium 4.1 Chloride 99 L Carbon Dioxide 25 Anion Gap 15.0 H BUN 32 H Creatinine 1.4 H Estimated GFR (MDRD) 49 L Glucose 181 H Lactic Acid 1.4 Calcium 9.2 Total Bilirubin 0.6 AST 17 ALT 13 Alkaline Phosphatase 81 Troponin I High Sens Total Protein 6.2 L Albumin 3.1 L Globulin 3.1 Albumin/Globulin Ratio 1.0 Lipase 27 TSH Urine Color Urine Clarity Urine pH Ur Specific [place] Urine Protein Urine Glucose (UA) Urine Ketones Urine Occult Blood Urine Nitrite Urine Bilirubin Urine Urobilinogen Ur Leukocyte Esterase Urine RBC Urine WBC Ur Squamous Epith Cells Urine Bacteria Ur Microscopic Review Urine Culture Comments 09/19/20 09/19/20 09/19/20 14:13 14:13 15:46 WBC RBC Hgb Hct MCV MCH MCHC RDW Plt Count MPV Neut # (Auto) Lymph # (Auto) [place] # (Auto) Eos # (Auto) Baso # (Auto) Absolute Nucleated RBC Nucleated RBC % Sodium Potassium Chloride Carbon Dioxide Anion Gap BUN Creatinine Estimated GFR (MDRD) Glucose Lactic Acid Calcium Total Bilirubin AST ALT Alkaline Phosphatase Troponin I High Sens 38.9 H* Total Protein Albumin Globulin Albumin/Globulin Ratio Lipase TSH 1.34 Urine Color YELLOW Urine Clarity HAZY Urine pH 5.5 Ur Specific [place] >=1.030 H Urine Protein 30 H Urine Glucose (UA) NEGATIVE Urine Ketones TRACE Urine Occult Blood MODERATE H Urine Nitrite NEGATIVE Urine Bilirubin NEGATIVE Urine Urobilinogen 1 (NORMAL) Ur Leukocyte Esterase MODERATE H Urine RBC 11-25 H Urine WBC >25 H Ur Squamous Epith Cells FEW Squamous Urine Bacteria Many H Ur Microscopic Review INDICATED Urine Culture Comments INDICATED 09/19/20 16:00 WBC RBC Hgb Hct MCV MCH MCHC RDW Plt Count MPV Neut # (Auto) Lymph # (Auto) [place] # (Auto) Eos # (Auto) Baso # (Auto) Absolute Nucleated RBC Nucleated RBC % Sodium Potassium Chloride Carbon Dioxide Anion Gap BUN Creatinine Estimated GFR (MDRD) Glucose Lactic Acid Calcium Total Bilirubin AST ALT Alkaline Phosphatase Troponin I High Sens 41.3 H* Total Protein Albumin Globulin Albumin/Globulin Ratio Lipase TSH Urine Color Urine Clarity Urine pH Ur Specific [place] Urine Protein Urine Glucose (UA) Urine Ketones Urine Occult Blood Urine Nitrite Urine Bilirubin Urine Urobilinogen Ur Leukocyte Esterase Urine RBC Urine WBC Ur Squamous Epith Cells Urine Bacteria Ur Microscopic Review Urine Culture Comments - Rads (name of study) CXR Radiology: Final report received (Chronic interstitial prominence, suspect mild or early pneumonia at each lung base medially. 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 He reports that for a few days he has been feeling progressively weak. He has denied any cough or fevers, no dysuria abdominal pain or vomiting. On presentation he was normotensive and had a sinus rhythm. No ischemic changes on the EKG. High-sensitivity troponin was initially 38. [place] was only mildly more elevated at 41. Today a urine catheterization reveals that he does have acute urinary tract infection. There is also some mild renal insufficiency. Creatinine is 1.4. We did do orthostatic blood pressures here in the emergency department he was markedly orthostatic with standing with a blood pressure did drop to 70/40. He has been given 1 L of IV fluids here in the emergency department. I discussed this case with Dr. Erin arzola and he will be brought in for further evaluation and monitoring. Observation overnight. Departure - Departure Disposition: ED Place in Observation Clinical Impression: Near syncope, Orthostatic hypotension UTI (urinary tract infection) Qualifiers: Urinary tract infection type: acute cystitis Hematuria presence: without hematuria Qualified Code(s): N30.00 - Acute cystitis without hematuria
[2020-09-19 14:21] LABS: BASOPHILS # (AUTO) 0.1 10^3/uL (0.0-0.1); BASOPHILS % (AUTO) 0.5 %; EOSINOPHILS % (AUTO) 0.4 %; HGB - HEMOGLOBIN 11.7 g/dL (14.0-18.0); LYMPHOCYTES # (AUTO) 0.7 10^3/uL (1.5-3.5); LYMPHOCYTES % (AUTO) 7.6 %; MEAN CORPUSCULAR HEMOGLOBIN 29.8 pg (27.0-31.0); MEAN CORPUSCULAR VOLUME 93.1 fL (80.0-94.0); MEAN PLATELET VOLUME 10.9 fL (7.4-11.4); MONOCYTES # (AUTO) 0.7 10^3/uL (0.0-1.0); MONOCYTES % (AUTO) 6.9 %; NEUTROPHILS % (AUTO) 83.9 %; PLT - PLATELET COUNT 205 10^3/uL (130-450); RED BLOOD COUNT 3.93 10^6/uL (4.70-6.10); RED CELL DISTRIBUTION WIDTH 15.8 % (12.0-15.0); WHITE BLOOD COUNT 9.6 x10^3/uL (4.8-10.8)
[2020-09-19] MEDS ORDERED: KETOROLAC 60 MG/2 ML VIAL IM STA (14:30)
[2020-09-19 14:40] LABS: ALBUMIN 3.1 g/dL (3.2-5.5); BILIRUBIN,TOTAL 0.6 mg/dL (0.2-1.0); CALCIUM 9.2 mg/dL (8.5-10.3); CREATININE 1.4 mg/dL (0.6-1.2); TOTAL PROTEIN 6.2 g/dL (6.7-8.2)
--- NOTE | 2020-09-19 14:51 | XRAY Report ---
PROCEDURE: Hip w/Pelvis 2-3V LT INDICATIONS: pain after fall TECHNIQUE: AP pelvis with lateral view(s) of the left hip(s). COMPARISON: None. FINDINGS: Bones: No fractures or dislocations. Pelvic ring appears intact. No suspicious bony lesions. Soft tissues: The visualized bowel gas pattern is normal. No suspicious soft tissue calcifications. 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 Reviewed by: Odell Brantley MD on 09/19/2020 2:50 PM PST Approved by: Odell Brantley MD on 09/19/2020 2:50 PM PST Station ID: [id number]
--- NOTE | 2020-09-19 14:58 | XRAY Report ---
PROCEDURE: Chest 1 View X-Ray INDICATIONS: chest pain TECHNIQUE: One view of the chest was acquired. COMPARISON: Prior chest plain film 12/20/2019. FINDINGS: Surgical changes and devices: None. Lungs and pleura: No pleural effusions or pneumothorax. Lungs are abnormal, with medial lung base a lveolar infiltration seen as blurring of the bronchovascular markings inferiorly and also blurring of the descending thoracic aorta margin behind the heart. Mediastinum: Mediastinal contours appear normal. Heart size is normal. Bones and chest wall: No suspicious bony lesions. Overlying soft tissues appear unremarkable. IMPRESSION: Chronic interstitial prominence, suspect mild or early pneumonia at each lung base medially. No pleur al effusion seen. Reviewed by: Odell Brantley MD on 09/19/2020 2:57 PM PST Approved by: Odell Brantley MD on 09/19/2020 2:57 PM PST Station ID: [id number]
[2020-09-19 15:56] LABS: GLUCOSE, URINE (UA) NEGATIVE (NEGATIVE); KETONES,URINE (UA) TRACE mg/dL (NEGATIVE); LEUKOCYTE ESTERASE, URINE MODERATE (NEGATIVE); NITRITE,URINE NEGATIVE (NEGATIVE); OCCULT BLOOD,URINE MODERATE (NEGATIVE); PH,URINE 5.5 PH (5.0-7.5); PROTEIN,URINE 30 mg/dL (NEGATIVE); UROBILINOGEN,URINE 1 (NORMAL) E.U./dL (NORMAL)
[2020-09-19 15:59] LABS: BILIRUBIN,URINE NEGATIVE (NEGATIVE); CLARITY,URINE HAZY (CLEAR); ICTOTEST,URINE NEGATIVE
[2020-09-19 16:20] LABS: BACTERIA,URINE Many /HPF (None Seen); SQUAMOUS EPITHELIAL CELL,UR FEW Squamous (<= Few)
[2020-09-19] MEDS ORDERED: cefTRIAXone 1 GM VIAL IVP STA (16:44)
[2020-09-19] MEDS ORDERED: WATER FOR INJECTION,STERILE 10 ML ONE (17:00)
[2020-09-19] MEDS ORDERED: SODIUM CHLORIDE FLUSH 0.9% 10 ML SYRINGE IVP PRN (18:16)
[2020-09-19] MEDS ORDERED: ONDANSETRON 4 MG/2 ML VIAL IVP PRN (18:16)
[2020-09-19] MEDS ORDERED: ACETAMINOPHEN 325 MG TABLET PO PRN (18:16)
--- NOTE | 2020-09-19 19:15 | HISTORY & PHYSICAL EXAMINATION ---
Chief Complaint - Chief Complaint Chief Complaint: Lower extremity weakness History of Present Illness - Admitted From Admitted From:: Home - History Obtained From Records Reviewed: Yes History obtained from: Patient, Daytime Hospitalist, EMR - History of Present Illness HPI Comment/Other: This is a 79-year-old male with a past medical history significant for insulin- dependent diabetes mellitus, bullous pemphigoid, coronary artery disease, peripheral vascular disease who presents today complaining of weakness in his lower extremities. He states that he woke up at 230 this morning and was using the bathroom when he felt very weak in his legs. He tried to get up but was so weak that he fell. He did not lose consciousness. He did not hit his head. He denies any chest pain, palpitations, dyspnea. He reports no weakness in his upper extremities. He does not feel dizzy or lightheaded. He states he has been eating and drinking well this past few days. He does not have any numbness or tingling in his lower extremities. He reports no difficulty urinating and denies any dysuria, urgency, hematuria. He has not had any diarrhea. In the emergency department, he was found to be afebrile with temperature of 36.8 C. His heart is in the 50s. His blood pressure was 116/42. He was not tachypneic and was saturating well on room air. Labs were significant for a BUN of 32 and a creatinine of 1.4. Lactic acid was 1.4. Troponin was 38.9. Urinalysis revealed moderate leukocyte Estrace, or 25 WBCs and many bacteria. He was given ceftriaxone IV and a liter of IV fluids. His orthostatics were checked and his systolic blood pressure dropped into the 70s with standing. Given the above findings, medicine was consulted for admission. I did discuss goals of care with the patient and he would like to be a full code. History - Past Medical History Cardiovascular: reports: Hypertension, High cholesterol, Coronary artery disease, Peripheral Vascular Disease Respiratory: reports: COPD Neuro: reports: Peripheral neuropathy Endocrine/Autoimmune: reports: Type 1 diabetes GI: reports: None : reports: None HEENT: reports: None Psych: reports: Depression, Anxiety Musculoskeletal: reports: None Derm: reports: None MRSA Hx?: No - Past Surgical History Ortho: reports: Knee replacement Cardiovascular: reports: Coronary stent, Angioplasty - Family & Social History Family History Comment/Other: He reports his father had coronary artery disease and heart failure. His mother had breast cancer. He states that she from intestinal problems. Living arrangement: At home Living Situation: With spouse/s.o. Social History Notes: [place] He used to work for [employer]. He did smoke a pack and a half for 50 years but quit over a year ago. He does not drink alcohol. - Substance History Use: Uses substance without health or social issues: NONE - POLST Patient has POLST: No Meds/Allgy - Home Medications Home Medications: Ambulatory Orders Medication Instructions Recorded Confirmed Aspirin [Adult Aspirin] 81 mg PO DAILY 06/18/18 09/08/20 Cholecalciferol (Vitamin D3) 2,000 unit PO DAILY 06/18/18 09/08/20 [Vitamin D3] Insulin Lispro [Humalog Kwikpen 0 - 10 unit SUBQ QID 06/18/18 09/08/20 U-100] Multivitamin [Multiple Vitamins] 1 each PO DAILY 06/18/18 09/08/20 Prednisone [Aurora] 5 mg PO DAILY 06/18/18 09/08/20 Varenicline Tartrate [Chantix] 1 mg PO BID 06/18/18 09/08/20 Ascorbic Acid [Vitamin C] 1,000 mg PO DAILY 11/22/19 09/08/20 Insulin Degludec [Tresiba] 17 unit SQ DAILY 11/22/19 09/08/20 Folic Acid 1 tab PO DAILY 07/19/20 09/08/20 Methotrexate 10 mg PO Q7D 07/19/20 09/08/20 Carvedilol [Coreg] 6.25 mg PO BID 08/16/20 09/08/20 Gabapentin [Neurontin] 300 mg PO TID #60 capsule 09/04/20 09/08/20 HYDROcod/ACETAM 5/325 [[place]y 5/325] 1 - 2 tab PO Q6H PRN #15 tablet 09/04/20 09/08/20 Ferrous Sulfate 325 mg PO DAILY 09/08/20 09/08/20 Propranolol [Inderal] 10 mg PO BID 09/08/20 09/08/20 - Allergies Allergies/Adverse Reactions: Allergies Allergy/AdvReac Type Severity Reaction Status Date / Time primidone Allergy Anaphylaxis Verified 09/19/20 13:43 Review of Systems - Constitutional Constitutional: denies: Fatigue, Fever, Chills - Ears, Nose & Throat Ears, Nose & Throat: denies: Nasal discharge, Nasal congestion, Sore throat - Cardiovascular Cariovascular: denies: Palpitations, Chest pain, Edema, Lightheadedness, Syncope, Exertional dyspnea, Decr. exercise tolerance - Respiratory Respiratory: denies: Cough, SOB at rest, SOB with exertion - Gastrointestinal Gastrointestinal: denies: Abdominal pain, Nausea, Vomiting - Genitourinary Genitourinary: denies: Dysuria, Frequency, Urgency, Hematuria - Musculoskeletal Musculoskeletal: denies: Limited range of motion - Neurological Neurological: reports: General weakness. denies: Focal weakness, Headache, D izziness, Numbness - All Other Systems All Other Systems: reports: Reviewed and negative Prior Level of Functionality: He is independent with ADL's. Exam - Vital Signs Reviewed Vital Signs: Yes Vital Signs: Vital Signs x48h Temp Pulse Pulse Pulse Pulse Resp BP 09/19/20 18:12 36.2 C L 54 L 14 107/54 L 09/19/20 17:28 36.7 C 51 L 14 124/45 L 09/19/20 16:08 60 24 129/43 L 09/19/20 15:50 52 L 59 L 50 L 09/19/20 13:38 36.8 C 58 L 16 116/42 L BP BP BP Pulse Ox 09/19/20 18:12 100 09/19/20 17:28 97 09/19/20 16:08 100 09/19/20 15:50 138/91 H 70/38 L 124/95 H 09/19/20 13:38 96 - Physical Exam General Appearance: positive: No acute distress, Alert Eyes Bilateral: positive: Normal inspection, Conjunctivae nml ENT: positive: Dry mucous membranes. negative: No signs of dehydration Neck: positive: Nml inspection Respiratory: positive: No respiratory distress. negative: Wheezes, Rales, Rhonchi Cardiovascular: positive: Regular rate & rhythm, Tachycardia, Systolic murmur. negative: No murmur, Irregularly irregular, Bradycardia Abdomen: positive: Non-tender, No distention. negative: Tenderness, Guarding, Rebound Skin: positive: Warm, Dry Extremities: positive: Full ROM, No pedal edema Neurologic/Psychiatric: positive: Sensation nml, Other (He has no focal deficits. Strength is 5 out of 5 in all 4 extremities. It is slightly decreased in the left lower extremity secondary to pain over the anterior aspect of the left tibia). negative: Disoriented to person, Disoriented to place, Facial droop, Slurred/abnml speech Conclusion/Plan - Problem List (1) Orthostatic hypotension Conclusion/Plan: He is orthostatic and he has evidence of acute kidney injury. He is symptomatic with this orthostasis. I suspect this is the etiology of his weakness. He has received 2 L of IV fluids in the emergency department. We will continue him on normal saline. Check orthostatics with each shift. Hold antihypertensives for the time being. Monitor on telemetry. Given the murmur on exam, will obtain an echocardiogram. (2) Acute kidney injury Conclusion/Plan: This is likely prerenal in nature. His creatinine is elevated at 1.4 and baseline is approximately 0.8. We will continue with IV fluids. Avoid nephrotoxins. Recheck renal function in the morning. (3) UTI (urinary tract infection) Conclusion/Plan: Although he has no symptoms, he is a male with an abnormal urinalysis. He receiv ed ceftriaxone IV in the emergency department which will be continued. Follow- up urine culture. Qualifiers: Urinary tract infection type: acute cystitis Hematuria presence: without hematuria Qualified Code(s): N30.00 - Acute cystitis without hematuria (4) Near syncope Conclusion/Plan: This is likely due to the orthostatic hypotension. He denies any syncope. His EKG is unremarkable. His troponins are mildly elevated but flat and this is likely demand ischemia. He does have a murmur on exam and so we will obtain echocardiogram. Monitor on telemetry to ensure there is no evidence of arrhythmia. (5) Coronary artery disease Conclusion/Plan: He has a history of coronary artery disease with stenting that was reportedly done at [facility] in [place]. His EKG does not suggest ischemia. His troponins are mildly elevated but flat. We will continue his home medications. Recheck troponin in the morning. (6) Bullous pemphigoid Conclusion/Plan: Stable. We will continue his home prednisone. He does take methotrexate weekly and he already took it today. (7) Insulin dependent diabetes mellitus Conclusion/Plan: He reports that he is a type I diabetic. We will continue his insulin regimen. Carb controlled diet. (8) Peripheral vascular disease Conclusion/Plan: We will continue his home medications. - Lab Results Lab results reviewed: Yes Fish Bones: 09/19/20 14:13 09/19/20 14:13 - Diagnostic Imaging Results Diagnostic Imaging Results: positive: Final report reviewed - EKG Results EKG Interpreted Independently: Yes EKG Findings: EKG is sinus rhythm with prolonged W[place] interval. No ST segment changes. Similar compared to prior EKG although motion artifact is no longer present. Core Measures - Anticipated LOS I expect patient to be DC'd or transferred within 96 hours.: Yes - Issues Hospital Issues and Management Plan: 79-year-old male presents with near syncope and weakness found to have acute kidney injury, without hypotension or urinary tract infection. He will be placed in observation for IV antibiotics and IV fluids. - DVT/VTE - Prophylaxis VTE/DVT Device ordered at admit?: Yes VTE/DVT Prophylaxis med ordered at admit?: Yes
[2020-09-19] MEDS: SODIUM CHLORIDE 0.9% 1,000 ML IV SCH (20:08)
[2020-09-19 20:33] LABS: C. PNEUMONIAE- RESP PCR PANEL NOT DETECTED
[2020-09-19] MEDS ORDERED: FAMOTIDINE 20 MG TABLET PO SCH (21:00)
[2020-09-19] MEDS: INSULIN ASPART 300 UNIT/3 ML PEN SUBQ SCH (21:25)
[2020-09-20] MEDS: SODIUM CHLORIDE FLUSH 0.9% 10 ML SYRINGE IVP SCH ×3 (00:14→16:50)
[2020-09-20] MEDS: SODIUM CHLORIDE 0.9% 1,000 ML IV SCH (03:44)
[2020-09-20 04:52] LABS: BASOPHILS % (AUTO) 0.5 %; EOSINOPHILS # (AUTO) 0.2 10^3/uL (0.0-0.7); EOSINOPHILS % (AUTO) 3.5 %; HGB - HEMOGLOBIN 10.6 g/dL (14.0-18.0); LYMPHOCYTES # (AUTO) 0.5 10^3/uL (1.5-3.5); MEAN CORPUSCULAR HEMOGLOBIN 29.8 pg (27.0-31.0); MEAN CORPUSCULAR HGB CONC 31.5 g/dL (32.0-36.0); MEAN CORPUSCULAR VOLUME 94.4 fL (80.0-94.0); MEAN PLATELET VOLUME 11.6 fL (7.4-11.4); MONOCYTES # (AUTO) 0.5 10^3/uL (0.0-1.0); MONOCYTES % (AUTO) 7.5 %; NEUTROPHILS # (AUTO) 4.8 10^3/uL (1.5-6.6); NEUTROPHILS % (AUTO) 80.2 %; PLT - PLATELET COUNT 186 10^3/uL (130-450); RED BLOOD COUNT 3.56 10^6/uL (4.70-6.10); RED CELL DISTRIBUTION WIDTH 15.6 % (12.0-15.0)
[2020-09-20 05:07] LABS: CALCIUM 8.3 mg/dL (8.5-10.3); MAGNESIUM 2.1 mg/dL (1.7-2.8); PHOSPHORUS 3.1 mg/dL (2.5-4.6)
[2020-09-20] MEDS ORDERED: predniSONE 10 MG TABLET PO SCH (08:00)
[2020-09-20] MEDS: INSULIN ASPART 300 UNIT/3 ML PEN SUBQ SCH ×3 (08:09→16:46)
[2020-09-20] MEDS ORDERED: INSULIN GLARGINE 300 UNIT/3 ML PEN SUBQ SCH (09:00)
[2020-09-20] MEDS ORDERED: cefTRIAXone 1 GM in SODIUM CHLORIDE 0.9% MINIBAG 100 ML IV SCH (09:00)
[2020-09-20] MEDS ORDERED: FOLIC ACID 1 MG TABLET PO SCH ×2 (09:00→12:01)
[2020-09-20] MEDS ORDERED: ASPIRIN EC 81 MG TABLET PO SCH (09:00)
[2020-09-20 10:16] LABS: HEMOGLOBIN A1c% 10.5 % (4.27-6.07)
[2020-09-20] MEDS ORDERED: SODIUM CHLORIDE 0.9% 1,000 ML IV SCH (10:33)
--- NOTE | 2020-09-20 11:54 | PHARMACY PROGRESS NOTE ---
- Best Possible Medication History Admit Date and Time: 09/19/201815 Processed by: Pharmacy Medication History completed: Yes Patient Interview: Completed Secondary Source(s): Physician records, Pharmacy records, Insurance records (PATIENT INTERVIEWED BY MASS SPECTROSCOPIST. PATIENT ABLE TO CONFIRM HOME MEDICATIONS ) As the person ultimately responsible for medication therapy, providers are able to order a medication from an existing home medication list in [facility] via the "Reconcile Routine" prior to Confirmation of that medication by contracting support specialist. Such practice is discouraged except when the physician, in their clinical judgment, deems that a medical need exists for a medication without regard to previous use.
[2020-09-20] MEDS ORDERED: INSULIN ASPART 300 UNIT/3 ML PEN SUBQ SCH ×2 (12:00→23:51)
[2020-09-20] MEDS ORDERED: INSULIN ASPART 300 UNIT/3 ML PEN SUBQ ONE (12:41)
--- NOTE | 2020-09-20 16:40 | Discharge Plan ---
Discharge Plan Problem Reviewed?: Yes Disposition: Home, Self Care Condition: Fair Prescriptions: Ciprofloxacin [Cipro] 250 mg PO BID #20 tablet Diet: Diabetic Activity Restrictions: Activity as Tolerated Shower Restrictions: No Assistance Devices: Walker, Crutches, Cane Weight Bearing: Full Weight Health Concerns: You were in Observation status to evaluate and treat why you fell, and we found you to have a severe drop in blood pressure in the standing position, and dehydration was found on your labs. Both of these were probably caused by a new infection; we found you to have a urinary tract infection. You received 2 days of IV antibiotics for the urinary tract infection. You are being sent home to take several more days of pill antibiotics. The new prescription was sent to your [email or web address] pharmacy electronically. Please keep the appointment to the [facility], which is tomorrow. You should no longer attend outpatient physical therapy at [facility] [place]. A referral was sent to [facility] for you to have in-house physical therapist, occupational therapist and bath aide. Our physical therapist evaluated you and recommended that you have a walker. The physical therapist here also advised that you have evaluation for a possible pinched nerve or bulging disc or sciatica, which then needs management by neurology or neurosurgery, and all this needs to be done as an outpatient. A summary of all this was sent to your primary care provider Dr. Efra Wisdom, to get this ordered and arranged for you. Resume your prehospital medications and diabetic management. Plan of Treatment: As above. Care Goals: Improvement in symptoms and stabilization are the goals. Assessment: Patient understands and is agreeable with the plan. This written reminder is being sent home with the patient. Follow-Up Care: Home Health - PT, Home Health - OT No Smoking: If you smoke, Please STOP! Call for help. Follow-up with: Efra Wisdom DO [Provider Admit Priv/Credential] -
[2020-09-20 16:43] VITALS: BP 158/108
--- NOTE | 2020-09-20 16:51 | DISCHARGE SUMMARY ---
Discharge Summary Admit Date: 09/19/20 Discharge Date: 09/20/20 Discharging Provider: Dr Lizzy Galarza Primary Care Provider: Dr Efra Wisdom Code Status: Attempt Resuscitation Condition at Discharge: Fair Discharge Disposition: 06 [facility] History of Present Illness: From the admission H&P of Dr Sarabjit Perez: This is a 79-year-old male with a past medical history significant for insulin- dependent diabetes mellitus, bullous pemphigoid, coronary artery disease, peripheral vascular disease who presents today complaining of weakness in his lower extremities. He states that he woke up at 0230 this morning and was using the bathroom when he felt very weak in his legs. He tried to get up but was so weak that he fell. He did not lose consciousness. He did not hit his head. He denies any chest pain, palpitations, dyspnea. He reports no weakness in his upper extremities. He does not feel dizzy or lightheaded. He states he has been eating and drinking well this past few days. He does not have any numbness or tingling in his lower extremities. He reports no difficulty urinating and denies any dysuria, urgency, hematuria. He has not had any diarrhea. In the emergency department, he was found to be afebrile with temperature of 36.8 C. His heart is in the 50s. His blood pressure was 116/42. He was not tachypneic and was saturating well on room air. Labs were significant for a BUN of 32 and a creatinine of 1.4. Lactic acid was 1.4. Troponin was 38.9. Urinalysis revealed moderate Leukocyte Esterace, and 25 WBCs and many bacteria. He was given Ceftriaxone IV and a liter of IV fluids. His orthostatic vital signs were then checked and his systolic blood pressure dropped into the 70s with standing. Given the above findings Hospitalist was consulted for managing him in Observation status. I did discuss goals of care with the patient and he would like to be a Full Code. - HOSPITAL COURSE Hospital Course: (1) Orthostatic hypotension He was markedly orthostatic and had evidence of acute kidney injury at admission. We suspected orthostasis was the etiology of his weakness. He received 2 L of IV fluids in the emergency department, and we continued him on normal saline and held the antihypertensives for a day. The following morning, his orthostatic vital signs had no drop, and his systolic blood pressure was 150-160 systolic. (2) Acute kidney injury His creatinine was elevated at 1.4, and his baseline is approximately 0.8. This was prerenal in nature, likely caused by the infection. He received iv fluids as above. The next day the creat was 1.0. Good oral hydration was advised to the at discharge. (3) E coli UTI Although he had no symptoms, he is a male with an abnormal urinalysis. He received ceftriaxone IV in the emergency department and also the next morning and was discharged to take 10 more days of Cipro 250 mg bid. Sensitivities were still pending at the time of discharge and need to be checked to tailor proper oral antibiotics. Consider increasing his dose of Prednisone during the infection in order to avoid Addisonian problems. (4) Left leg pain The next morning he was able to ambulate without orthostasis and reported to his RN that he had left leg pain with walking. Therefore a physical therapy consult was ordered. The physical therapist learned that he gets left leg pain, which is worse several hours after attending outpatient physical therapy, which he has done only twice. This near-syncopal event occurred after the second session. After the first session, his pain was so bad he went to the ER as well, and impression was that he has sciatica. The patient should therefore not continue with aggressive outpatient PT until he has evaluation for cause of sciatica, to include MRI or CT of the lower back then referral to a back specialist for management of a possible bulging disc. A Home Health referral for (light) PT, and for OT and a bath aide was ordered. (5) Heart murmur He underwent an Echocardiogram which showed preserved LVEF of 60%, mild aortic stenosis, trace aortic regurg and mitral regurg, mild tricuspid regurg, normal PA pressure of 31 mmHg. (6) Insulin dependent diabetes mellitus He reported that he is Insulin-dependant which we continued a Carb controlled diet. His A1c was 10.5, possibly elevated from being on Prednisone and the stress of this UTI. (7) Diabetic toe ulcer Patient has an open wound on one of his toes, reported by the RN. There was a referral sent for Wound consult however we were informed that he already is established with the [facility] here and there is a scheduled outpatient appointment already pending for tomorrow, which he was reminded to attend. (8) Bullous pemphigoid Stable. We continued his home Prednisone. He does take Methotrexate weekly as well. The [facility] here informed us that his multiple skin lesions are handled by Dermatology. (9) Coronary artery disease He has a history of coronary artery disease with stenting that was reportedly done at [facility] in [place]. His EKG did not suggest ischemia. His troponins were mildly elevated but flat (38>> 40>> 23). We continued his home medications. (10) Peripheral vascular disease We continued his home medications. (11) Tremor (of head and arms) This was noted, but is apparently not new. - ALLERGIES Allergies/Adverse Reactions: Allergies Allergy/AdvReac Type Severity Reaction Status Date / Time primidone Allergy Anaphylaxis Verified 09/19/20 13:43 - MEDICATIONS Home Medications: Ambulatory Orders Medication Instructions Recorded Confirmed Cholecalciferol (Vitamin D3) 2,000 unit PO DAILY 06/18/18 09/20/20 [Vitamin D3] Insulin Lispro [Humalog Kwikpen 0 - 10 unit SUBQ PRN PRN 06/18/18 09/20/20 U-100] Multivitamin [Multiple Vitamins] 1 each PO DAILY 06/18/18 09/20/20 Varenicline Tartrate [Chantix] 1 mg PO BID 06/18/18 09/20/20 Ascorbic Acid [Vitamin C] 1,000 mg PO DAILY 11/22/19 09/20/20 Insulin Degludec [Tresiba] 17 unit SQ DAILY 11/22/19 09/20/20 Folic Acid 0.4 mg PO SUMOWETHFRSA 07/19/20 09/20/20 Methotrexate 12.5 mg PO Q7D 07/19/20 09/20/20 Carvedilol [Coreg] 6.25 mg PO BID 08/16/20 09/20/20 Gabapentin [Neurontin] 300 mg PO TID #60 capsule 09/04/20 09/20/20 HYDROcod/ACETAM 5/325 [[place] 5/325] 1 - 2 tab PO Q6H PRN #15 tablet 09/04/20 09/20/20 Ferrous Sulfate 325 mg PO DAILY 09/08/20 09/20/20 Propranolol [Inderal] 10 mg PO BID 09/08/20 09/20/20 Aspirin Chewable [St Rj 81 mg PO DAILY 09/20/20 09/20/20 Aspirin] Ciprofloxacin [Cipro] 250 mg PO BID #20 tablet 09/20/20 predniSONE [Deltasone] 10 mg PO DAILY 09/20/20 09/20/20 - PHYSICAL EXAM AT DISCHARGE General Appearance: positive: No acute distress, Other (Of the head, shoulders, arms and hands present) Eyes Bilateral: positive: Normal inspection, EOMI ENT: positive: ENT inspection nml, No signs of dehydration Neck: positive: Nml inspection, No JVD Respiratory: positive: No respiratory distress, Breath sounds nml Cardiovascular: positive: Regular rate & rhythm, Other (1-2/6 syst murmur) Abdomen: positive: Nml bowel sounds, No distention Skin: positive: Other (Multiple large shallow wounds of the trunk and extremities in various stages of healing.) Extremities: positive: No pedal edema Neurologic/Psychiatric: positive: Oriented x3, Other (Tremor noted) - LABS Result Diagrams: 09/20/20 04:20 09/20/20 04:20 - DIAGNOSTIC IMAGING Diagnostic Imaging Results: Final report reviewed - FOLLOW UP Follow Up: See PCP in next 1-2 weeks in hospital follow-up. - TIME SPENT Time Spent in Discharge (Minutes): 35
[2020-09-21] MEDS ORDERED: FERROUS SULFATE 325 MG TABLET PO SCH (09:00)
== END 2020-09-20 17:28 | disposition home health service (06) ==
LOC: EDUNIT# → ED 13:32 → MS3 18:16
PROVIDERS: ADMIT Internal Medicine; ATTEND Internal Medicine
DX: I95.1 Orthostatic hypotension (principal); N17.9 Acute kidney failure, unspecified; N39.0 Urinary tract infection, site not specified; B96.20 Unspecified Escherichia coli [E. coli] as the cause of diseases classified elsewhere; M79.605 Pain in left leg; I08.3 Combined rheumatic disorders of mitral, aortic and tricuspid valves; R25.1 Tremor, unspecified; E86.0 Dehydration; E10.42 Type 1 diabetes mellitus with diabetic polyneuropathy; E10.51 Type 1 diabetes mellitus with diabetic peripheral angiopathy without gangrene; E10.621 Type 1 diabetes mellitus with foot ulcer; L97.509 Non-pressure chronic ulcer of other part of unspecified foot with unspecified severity; L12.0 Bullous pemphigoid; I25.10 Atherosclerotic heart disease of native coronary artery without angina pectoris; I10 Essential (primary) hypertension; E78.00 Pure hypercholesterolemia, unspecified; J44.9 Chronic obstructive pulmonary disease, unspecified; F32.9 Major depressive disorder, single episode, unspecified; F41.9 Anxiety disorder, unspecified; Z96.659 Presence of unspecified artificial knee joint; Z87.891 Personal history of nicotine dependence; Z95.5 Presence of coronary angioplasty implant and graft; Z79.52 Long term (current) use of systemic steroids; Z79.899 Other long term (current) drug therapy; Z79.82 Long term (current) use of aspirin; Z79.4 Long term (current) use of insulin; Z79.891 Long term (current) use of opiate analgesic
CPT/HCPCS: 36415; 51701; 71045; 73502; 80048; 80053; 81001; 83036; 83605; 83690; 83735; 84100; 84443; 84484; 85025; 87086; 87181; 87631; 93005; 93306; 96361; 96365; 96372; 96375; 97116; 97161; 97165; 99285; A9270; G0378; J1815; 0202U; 81003

== ENCOUNTER 2020-10-04 08:00 | Outpatient (CLI) | payer MEDICARE, BC ==
[2020-10-04 18:12] LABS: BASOPHILS # (AUTO) 0.1 10^3/uL (0.0-0.1); BASOPHILS % (AUTO) 0.5 %; EOSINOPHILS # (AUTO) 0.2 10^3/uL (0.0-0.7); EOSINOPHILS % (AUTO) 2.3 %; HGB - HEMOGLOBIN 11.7 g/dL (14.0-18.0); LYMPHOCYTES # (AUTO) 0.7 10^3/uL (1.5-3.5); LYMPHOCYTES % (AUTO) 6.8 %; MEAN CORPUSCULAR HEMOGLOBIN 29.1 pg (27.0-31.0); MEAN CORPUSCULAR HGB CONC 30.2 g/dL (32.0-36.0); MEAN CORPUSCULAR VOLUME 96.3 fL (80.0-94.0); MEAN PLATELET VOLUME 12.2 fL (7.4-11.4); MONOCYTES # (AUTO) 0.6 10^3/uL (0.0-1.0); NEUTROPHILS # (AUTO) 8.4 10^3/uL (1.5-6.6); NEUTROPHILS % (AUTO) 84.1 %; PLT - PLATELET COUNT 306 10^3/uL (130-450); RED BLOOD COUNT 4.02 10^6/uL (4.70-6.10); RED CELL DISTRIBUTION WIDTH 16.3 % (12.0-15.0)
[2020-10-04 18:45] LABS: % IRON SATURATION 49 % (20-50); ALBUMIN 3.2 g/dL (3.2-5.5); ALKALINE PHOSPHATASE 77 IU/L (42-121); ALT ALANINE AMINOTRANSFERASE 13 IU/L (10-60); AST ASPARTATE AMINOTRANSFERASE 15 IU/L (10-42); BILIRUBIN,TOTAL 0.5 mg/dL (0.2-1.0); BUN - BLOOD UREA NITROGEN 31 mg/dL (6-20); CARBON DIOXIDE - CO2 29 mmol/L (21-32); CHLORIDE 99 mmol/L (101-111); CHOL/HDL RATIO 3.5 (<5.0); CHOLESTEROL 209 mg/dL; CREATININE 0.9 mg/dL (0.6-1.2); GLUCOSE 277 mg/dL (70-100); HDL CHOLESTEROL 60 mg/dL; IRON 147 ug/dL (45-182); LDL CHOLESTEROL,CALCULATED 125 mg/dL; LDL/HDL RATIO 2.1 (<3.6); SODIUM 137 mmol/L (135-145); TOTAL IRON BINDING CAPACITY 301 ug/dL (250-450); TOTAL PROTEIN 6.5 g/dL (6.7-8.2); TRANSFERRIN 215 mg/dL (180-329); VLDL CHOLESTEROL 24 mg/dL
[2020-10-04 18:49] LABS: CREATININE,URINE 110.8 mg/dL; MICROALBUM/CREATININE RATIO,UR 35.2 ug/mg (<30.0); MICROALBUMIN,URINE 3.9 mg/dL (0-300.0)
[2020-10-04 19:09] LABS: HEMOGLOBIN A1c% 10.2 % (4.27-6.07)
== END 2020-10-04 23:59 | disposition home or self-care (01) ==
LOC: LAB.WCP 08:00
PROVIDERS: ATTEND Family Medicine
DX: E10.9 Type 1 diabetes mellitus without complications (principal); D64.9 Anemia, unspecified
CPT/HCPCS: 36415; 80053; 80061; 82043; 82570; 82607; 82728; 83036; 83540; 83721; 84466; 85025

== ENCOUNTER 2021-01-03 08:00 | Outpatient (CLI) | payer BC, MEDICARE ==
[2021-01-03 18:14] LABS: BASOPHILS % (AUTO) 0.4 %; EOSINOPHILS # (AUTO) 0.1 10^3/uL (0.0-0.7); EOSINOPHILS % (AUTO) 1.8 %; HGB - HEMOGLOBIN 12.3 g/dL (14.0-18.0); LYMPHOCYTES # (AUTO) 1.2 10^3/uL (1.5-3.5); MEAN CORPUSCULAR HEMOGLOBIN 31.5 pg (27.0-31.0); MEAN CORPUSCULAR HGB CONC 31.5 g/dL (32.0-36.0); MEAN CORPUSCULAR VOLUME 99.7 fL (80.0-94.0); MEAN PLATELET VOLUME 11.7 fL (7.4-11.4); MONOCYTES # (AUTO) 0.8 10^3/uL (0.0-1.0); MONOCYTES % (AUTO) 10.3 %; NEUTROPHILS # (AUTO) 5.2 10^3/uL (1.5-6.6); NEUTROPHILS % (AUTO) 71.1 %; PLT - PLATELET COUNT 261 10^3/uL (130-450); RED BLOOD COUNT 3.91 10^6/uL (4.70-6.10); RED CELL DISTRIBUTION WIDTH 15.6 % (12.0-15.0); WHITE BLOOD COUNT 7.3 x10^3/uL (4.8-10.8)
[2021-01-03 18:43] LABS: ALBUMIN 3.6 g/dL (3.2-5.5); ALBUMIN/GLOBULIN RATIO 1.2 (1.0-2.2); ALKALINE PHOSPHATASE 64 IU/L (42-121); ALT ALANINE AMINOTRANSFERASE 17 IU/L (10-60); AST ASPARTATE AMINOTRANSFERASE 16 IU/L (10-42); BILIRUBIN,TOTAL 0.9 mg/dL (0.2-1.0); BUN - BLOOD UREA NITROGEN 26 mg/dL (6-20); CALCIUM 9.3 mg/dL (8.5-10.3); CARBON DIOXIDE - CO2 25 mmol/L (21-32); CHLORIDE 106 mmol/L (101-111); CHOL/HDL RATIO 3.9 (<5.0); CHOLESTEROL 243 mg/dL; CREATININE 0.9 mg/dL (0.6-1.2); GFR - MDRD 81 (>89); GLUCOSE 67 mg/dL (70-100); HDL CHOLESTEROL 63 mg/dL; LDL CHOLESTEROL,CALCULATED 163 mg/dL; LDL/HDL RATIO 2.6 (<3.6); POTASSIUM 3.7 mmol/L (3.5-5.0); SODIUM 139 mmol/L (135-145); TOTAL PROTEIN 6.5 g/dL (6.7-8.2); TRIGLYCERIDES 87 mg/dL; VLDL CHOLESTEROL 17 mg/dL
[2021-01-03 19:25] LABS: ESTIMATED AVERAGE GLUCOSE 235 mg/dL (70-100); HEMOGLOBIN A1c% 9.8 % (4.27-6.07)
[2021-01-03 19:27] LABS: CREATININE,URINE 131.5 mg/dL; MICROALBUM/CREATININE RATIO,UR 27.4 ug/mg (<30.0); MICROALBUMIN,URINE 3.6 mg/dL (0-300.0)
== END 2021-01-03 23:59 | disposition home or self-care (01) ==
LOC: LAB.WCP 08:00
PROVIDERS: ATTEND Family Medicine
DX: E10.9 Type 1 diabetes mellitus without complications (principal)
CPT/HCPCS: 36415; 80053; 80061; 82043; 82570; 83036; 83721; 85025

== ENCOUNTER 2021-04-10 08:00 | Outpatient (CLI) | payer BC, MEDICARE ==
[2021-04-10 11:41] LABS: BASOPHILS # (AUTO) 0.1 10^3/uL (0.0-0.1); BASOPHILS % (AUTO) 0.7 %; EOSINOPHILS # (AUTO) 0.2 10^3/uL (0.0-0.7); EOSINOPHILS % (AUTO) 2.8 %; HCT - HEMATOCRIT 37.8 % (42.0-52.0); HGB - HEMOGLOBIN 12.2 g/dL (14.0-18.0); LYMPHOCYTES % (AUTO) 13.9 %; MEAN CORPUSCULAR HEMOGLOBIN 32.8 pg (27.0-31.0); MEAN CORPUSCULAR HGB CONC 32.3 g/dL (32.0-36.0); MEAN CORPUSCULAR VOLUME 101.6 fL (80.0-94.0); MEAN PLATELET VOLUME 12.2 fL (7.4-11.4); MONOCYTES % (AUTO) 12.7 %; NEUTROPHILS # (AUTO) 5.2 10^3/uL (1.5-6.6); NEUTROPHILS % (AUTO) 69.5 %; PLT - PLATELET COUNT 242 10^3/uL (130-450); RED BLOOD COUNT 3.72 10^6/uL (4.70-6.10); RED CELL DISTRIBUTION WIDTH 15.4 % (12.0-15.0); WHITE BLOOD COUNT 7.5 x10^3/uL (4.8-10.8)
[2021-04-10 12:14] LABS: ALBUMIN 3.8 g/dL (3.2-5.5); ALBUMIN/GLOBULIN RATIO 1.5 (1.0-2.2); ALKALINE PHOSPHATASE 93 IU/L (42-121); ALT ALANINE AMINOTRANSFERASE 38 IU/L (10-60); AST ASPARTATE AMINOTRANSFERASE 26 IU/L (10-42); BILIRUBIN,TOTAL 0.5 mg/dL (0.2-1.0); BUN - BLOOD UREA NITROGEN 31 mg/dL (6-20); CALCIUM 9.3 mg/dL (8.5-10.3); CARBON DIOXIDE - CO2 29 mmol/L (21-32); CHLORIDE 105 mmol/L (101-111); CHOL/HDL RATIO 2.4 (<5.0); CHOLESTEROL 118 mg/dL; GFR - MDRD 72 (>89); GLUCOSE 179 mg/dL (70-100); HDL CHOLESTEROL 49 mg/dL; LDL CHOLESTEROL,CALCULATED 57 mg/dL; LDL/HDL RATIO 1.2 (<3.6); POTASSIUM 4.3 mmol/L (3.5-5.0); SODIUM 142 mmol/L (135-145); TOTAL PROTEIN 6.3 g/dL (6.7-8.2); TRIGLYCERIDES 59 mg/dL; VLDL CHOLESTEROL 12 mg/dL
[2021-04-10 12:21] LABS: ESTIMATED AVERAGE GLUCOSE 214 mg/dL (70-100); HEMOGLOBIN A1c% 9.1 % (4.27-6.07)
== END 2021-04-10 23:59 | disposition home or self-care (01) ==
LOC: LAB.WCP 08:00
PROVIDERS: ATTEND Family Medicine
DX: E11.39 Type 2 diabetes mellitus with other diabetic ophthalmic complication (principal)
CPT/HCPCS: 36415; 80053; 80061; 83036; 83721; 85025

== ENCOUNTER 2021-04-15 22:12 | Outpatient (CLI) | payer MEDICARE | END 2021-04-15 22:13 | disposition critical access hospital (66) | LOC: EMS 22:12 | DX: R41.0 Disorientation, unspecified (principal); I95.9 Hypotension, unspecified; E11.649 Type 2 diabetes mellitus with hypoglycemia without coma | CPT/HCPCS: A0425; A0427 ==

== ENCOUNTER 2021-04-15 22:29 | Emergency (ER) | payer BC, MEDICARE ==
[2021-04-15] MEDS ORDERED: SODIUM CHLORIDE 0.9% 500 ML IV STA (22:58)
--- NOTE | 2021-04-15 22:59 | ED Physician Documentation ---
PD HPI ALTERED MENTAL STATUS - Stated complaint Stated Complaint: HYPOGLYCEMIA, LETHARGIC - Chief complaint Chief Complaint: General - History obtained from History obtained from: Patient, EMS - History of Present Illness Timing - onset: How many hours ago (1), Today Timing - details: Gradual onset Quality / character: Confused ( noted patient to be confused and called EMS. They found his blood sugar to be low at 27. They gave Dextrose IV and his symptoms improved. He then went to stand up and felt lightheaded/near syncopal. BP was noted to be 50 systolic. EMS encouraged patient to come to ER. BP improved with IV fluids) Associated symptoms: No: Fever, Headache Contributing factors: Diabetic, Other (he states he was doing yardwork out in the heat today and did not feel that he had drank much fluid. No change in diet otherwise, but did not eat much dinner.). No: New medication, Recent med change, Recent illness Basline status: Alert and oriented X 3, Ambulatory Treatment INFRASTRUCTURE DIRECTOR: D50, Other (IV fluids.) Similar symptoms before: Diagnosis (has had blood sugar low before, not often. Has not had low BP episode though.) Recently seen: Not recently seen Review of Systems Constitutional: denies: Fever, Chills Nose: denies: Rhinorrhea / runny nose, Congestion Throat: denies: Sore throat Cardiac: denies: Chest pain / pressure, Palpitations Respiratory: denies: Cough Neurologic: reports: Generalized weakness, Confused (improved with Dextrose.). denies: Focal weakness, Numbness, Syncope PD PAST MEDICAL HISTORY - Past Medical History Past Medical History: Yes Cardiovascular: Hypertension, High cholesterol, Coronary artery disease, Peripheral Vascular Disease Respiratory: COPD Neuro: Peripheral neuropathy Endocrine/Autoimmune: Type 1 diabetes GI: None : None HEENT: None Psych: Depression, Anxiety Musculoskeletal: None Derm: None - Past Surgical History Past Surgical History: Yes Ortho: Knee replacement Cardiovascular: Coronary stent, Angioplasty - Present Medications Home Medications: Ambulatory Orders Medication Instructions Recorded Confirmed Cholecalciferol (Vitamin D3) 2,000 unit PO DAILY 06/18/18 04/15/21 [Vitamin D3] Insulin Lispro [Humalog Kwikpen 0 - 10 unit SUBQ PRN PRN 06/18/18 04/15/21 U-100] Multivitamin [Multiple Vitamins] 1 each PO DAILY 06/18/18 04/15/21 Varenicline Tartrate [Chantix] 1 mg PO BID 06/18/18 04/15/21 Ascorbic Acid [Vitamin C] 1,000 mg PO DAILY 11/22/19 04/15/21 Insulin Degludec [Tresiba] 17 unit SQ DAILY 11/22/19 04/15/21 Folic Acid 0.4 mg PO SUMOWETHFRSA 07/19/20 04/15/21 Methotrexate [Methotrexate Sodium] 12.5 mg PO Q7D 07/19/20 04/15/21 Carvedilol [Coreg] 6.25 mg PO BID 08/16/20 04/15/21 Gabapentin [Neurontin] 300 mg PO TID #60 capsule 09/04/20 04/15/21 Ferrous Sulfate 325 mg PO DAILY 09/08/20 04/15/21 Aspirin Chewable [St Rj 81 mg PO DAILY 09/20/20 04/15/21 Aspirin] predniSONE [Deltasone] 10 mg PO DAILY 09/20/20 04/15/21 Atorvastatin [Lipitor] 80 mg PO HS 04/15/21 04/15/21 Lisinopril [Zestril] 2.5 mg PO DAILY PM 04/15/21 04/15/21 - Allergies Allergies/Adverse Reactions: Allergies Allergy/AdvReac Type Severity Reaction Status Date / Time primidone Allergy Anaphylaxis Verified 04/15/21 22:44 - Social History Does the pt smoke?: No Smoking Status: Never smoker Does the pt drink ETOH?: No Does the pt have substance abuse?: No - Immunizations Immunizations are current?: Yes - POLST Patient has POLST: No PD ED PE NORMAL - Vitals Vital signs reviewed: Yes - General General: Alert and oriented X 3, No acute distress, Well developed/nourished - HEENT HEENT: Atraumatic - Neck Neck: Supple, no meningeal sign, No adenopathy - Cardiac Cardiac: RRR, No murmur - Respiratory Respiratory: Clear bilaterally - Abdomen Abdomen: Soft, Non tender - Back Back: No CVA TTP - Derm Derm: Normal color, Warm and dry - Extremities Extremities: Normal ROM s pain, No edema, No calf tenderness / cord - Neuro Neuro: Alert and oriented X 3, No motor deficit, Normal speech Eye Opening: Spontaneous Motor: Obeys Commands Verbal: Oriented GCS Score: 15 Results - Vitals Vitals: Vital Signs - 24 hr 04/15/21 04/15/21 04/16/21 22:39 23:44 00:14 Temperature 36.1 C L 36.5 C Heart Rate 65 72 71 Respiratory 22 16 23 Rate Blood Pressure 103/46 L 132/58 H 144/56 H O2 Saturation 98 98 98 Oxygen O2 Source Room air - EKG (time done) 22:53 Rate: Rate (enter#) (58) Rhythm: NSR [place]: Normal Intervals: Normal [place] QRS: Normal Ischemia: Normal ST segments. No: ST elevation c/w ischemia, ST depression - Labs Labs: Laboratory Tests 04/15/21 04/15/21 04/15/21 23:12 23:12 23:12 WBC 8.5 RBC 3.26 L Hgb 10.6 L Hct 33.2 L MCV 101.8 H MCH 32.5 H MCHC 31.9 L RDW 15.8 H Plt Count 171 MPV 11.4 Neut # (Auto) 6.5 Lymph # (Auto) 0.9 L [place] # (Auto) 0.9 Eos # (Auto) 0.2 Baso # (Auto) 0.0 Absolute Nucleated RBC 0.00 Nucleated RBC % 0.0 Sodium 138 Potassium 4.6 Chloride 106 Carbon Dioxide 25 Anion Gap 7.0 BUN 57 H Creatinine 1.9 H Estimated GFR (MDRD) 34 L Glucose 249 H Calcium 8.8 Magnesium 2.2 Total Bilirubin 0.6 AST 14 ALT 17 Alkaline Phosphatase 65 Troponin I High Sens 9.3 Total Protein 5.7 L Albumin 3.4 Globulin 2.3 Albumin/Globulin Ratio 1.5 Lipase 59 H PD MEDICAL DECISION MAKING - ED course Complexity details: reviewed results, re-evaluated patient (he is feeling well here. Ate food. BP is good after fluids. Seems likely related to extra work in yard during the higher heat today. ), considered differential, d/w patient Departure - Departure Disposition: 01 Home, Self Care Clinical Impression: Hypoglycemic episode in patient with diabetes mellitus, Transient hypotension, Fluid volume depletion Condition: Stable Record reviewed to determine appropriate education?: Yes Instructions: ED Diabetes Hypoglycemia Insulin React Follow-Up: Efra Wisdom DO [Primary Care Provider] - Comments: Your blood sugar and blood pressure have improved. Your basic blood tests are looking reasonably good. Your kidney function called the creatinine is slightly elevated, likely related to under hydration. No signs of heart attack/ heart failure. The under hydration and work of the day could account for the transiently low blood pressure (volume depletion) as well as the low blood sugar (extra energy for temperature regulation). I would rest and stay well hydrated tomorrow/next couple of days, until the heat wave has subsided. Continue usual medications otherwise. Discharge Date/Time: 04/16/21 00:47
[2021-04-15 23:19] LABS: BASOPHILS % (AUTO) 0.5 %; EOSINOPHILS # (AUTO) 0.2 10^3/uL (0.0-0.7); EOSINOPHILS % (AUTO) 2.1 %; HCT - HEMATOCRIT 33.2 % (42.0-52.0); HGB - HEMOGLOBIN 10.6 g/dL (14.0-18.0); LYMPHOCYTES # (AUTO) 0.9 10^3/uL (1.5-3.5); LYMPHOCYTES % (AUTO) 10.1 %; MEAN CORPUSCULAR HEMOGLOBIN 32.5 pg (27.0-31.0); MEAN CORPUSCULAR HGB CONC 31.9 g/dL (32.0-36.0); MEAN CORPUSCULAR VOLUME 101.8 fL (80.0-94.0); MEAN PLATELET VOLUME 11.4 fL (7.4-11.4); MONOCYTES # (AUTO) 0.9 10^3/uL (0.0-1.0); MONOCYTES % (AUTO) 10.8 %; NEUTROPHILS # (AUTO) 6.5 10^3/uL (1.5-6.6); NEUTROPHILS % (AUTO) 76.1 %; PLT - PLATELET COUNT 171 10^3/uL (130-450); RED BLOOD COUNT 3.26 10^6/uL (4.70-6.10); RED CELL DISTRIBUTION WIDTH 15.8 % (12.0-15.0); WHITE BLOOD COUNT 8.5 x10^3/uL (4.8-10.8)
[2021-04-15 23:31] LABS: ALBUMIN 3.4 g/dL (3.2-5.5); ALBUMIN/GLOBULIN RATIO 1.5 (1.0-2.2); BILIRUBIN,TOTAL 0.6 mg/dL (0.2-1.0); CALCIUM 8.8 mg/dL (8.5-10.3); CREATININE 1.9 mg/dL (0.6-1.2); MAGNESIUM 2.2 mg/dL (1.7-2.8); POTASSIUM 4.6 mmol/L (3.5-5.0); TOTAL PROTEIN 5.7 g/dL (6.7-8.2)
[2021-04-16 00:14] VITALS: BP 144/56
== END 2021-04-16 00:47 | disposition home or self-care (01) ==
LOC: EDUNIT# → SUPCPDRO 22:29 → ED 22:29
DX: E10.649 Type 1 diabetes mellitus with hypoglycemia without coma (principal); I95.9 Hypotension, unspecified; E86.9 Volume depletion, unspecified; E10.51 Type 1 diabetes mellitus with diabetic peripheral angiopathy without gangrene; I10 Essential (primary) hypertension; Z79.82 Long term (current) use of aspirin
CPT/HCPCS: 36415; 80053; 83690; 83735; 84484; 85025; 93005; 96360; 99283

== ENCOUNTER 2021-04-30 08:00 | Outpatient (CLI) | payer MEDICARE ==
[2021-04-30 18:06] LABS: CALCIUM 8.9 mg/dL (8.5-10.3); CREATININE 0.9 mg/dL (0.6-1.2); POTASSIUM 4.7 mmol/L (3.5-5.0)
== END 2021-04-30 23:59 | disposition home or self-care (01) ==
LOC: LAB.WCP 08:00
PROVIDERS: ATTEND Family Medicine
DX: I10 Essential (primary) hypertension (principal)
CPT/HCPCS: 36415; 80048

== ENCOUNTER 2021-05-07 17:29 | Outpatient (CLI) | payer MEDICARE ==
[2021-05-07 18:21] LABS: BASOPHILS % (AUTO) 0.4 %; EOSINOPHILS # (AUTO) 0.2 10^3/uL (0.0-0.7); EOSINOPHILS % (AUTO) 3.3 %; HCT - HEMATOCRIT 39.4 % (42.0-52.0); HGB - HEMOGLOBIN 12.7 g/dL (14.0-18.0); LYMPHOCYTES % (AUTO) 13.9 %; MEAN CORPUSCULAR HGB CONC 32.2 g/dL (32.0-36.0); MEAN CORPUSCULAR VOLUME 102.3 fL (80.0-94.0); MEAN PLATELET VOLUME 12.1 fL (7.4-11.4); MONOCYTES # (AUTO) 0.7 10^3/uL (0.0-1.0); MONOCYTES % (AUTO) 9.8 %; NEUTROPHILS # (AUTO) 5.2 10^3/uL (1.5-6.6); NEUTROPHILS % (AUTO) 72.3 %; PLT - PLATELET COUNT 186 10^3/uL (130-450); RED BLOOD COUNT 3.85 10^6/uL (4.70-6.10); RED CELL DISTRIBUTION WIDTH 15.4 % (12.0-15.0); WHITE BLOOD COUNT 7.2 x10^3/uL (4.8-10.8)
[2021-05-07 18:58] LABS: ALBUMIN 3.7 g/dL (3.2-5.5); ALBUMIN/GLOBULIN RATIO 1.4 (1.0-2.2); BILIRUBIN,TOTAL 0.8 mg/dL (0.2-1.0); CALCIUM 9.3 mg/dL (8.5-10.3); POTASSIUM 4.3 mmol/L (3.5-5.0); TOTAL PROTEIN 6.4 g/dL (6.7-8.2)
== END 2021-05-07 23:59 | disposition home or self-care (01) ==
LOC: LAB.N 17:29
PROVIDERS: ATTEND Physician Assistant Medical
DX: R10.9 Unspecified abdominal pain (principal)
CPT/HCPCS: 36415; 80053; 85025; 87086

== ENCOUNTER 2021-05-11 10:31 | Outpatient (CLI) | payer MEDICARE ==
[2021-05-11 12:28] LABS: BILIRUBIN,URINE NEGATIVE (NEGATIVE); GLUCOSE, URINE (UA) 500 mg/dL (NEGATIVE); KETONES,URINE (UA) NEGATIVE (NEGATIVE); LEUKOCYTE ESTERASE, URINE MODERATE (NEGATIVE); NITRITE,URINE NEGATIVE (NEGATIVE); OCCULT BLOOD,URINE MODERATE (NEGATIVE); PH,URINE 5.5 PH (5.0-7.5); PROTEIN,URINE NEGATIVE (NEGATIVE); UROBILINOGEN,URINE 0.2 (NORMAL) E.U./dL (NORMAL)
[2021-05-11 12:33] LABS: CLARITY,URINE CLOUDY (CLEAR)
[2021-05-11 13:13] LABS: SQUAMOUS EPITHELIAL CELL,UR NONE SEEN (<= Few); WBC,URINE >25 /HPF (0-3)
[2021-05-11 13:14] LABS: BACTERIA,URINE Few /HPF (None Seen)
== END 2021-05-11 10:32 | disposition home or self-care (01) ==
LOC: LAB.N 10:31
PROVIDERS: ATTEND Family Medicine
DX: R10.9 Unspecified abdominal pain (principal)
CPT/HCPCS: 81001; 87086

== ENCOUNTER 2021-05-22 11:59 | Outpatient (CLI) | payer MEDICARE ==
[2021-05-22] MEDS ORDERED: IOPAMIDOL-300 100 ML VIAL ONE (12:09)
[2021-05-22] MEDS: IOPAMIDOL-300 100 ML VIAL IVP ONE (12:40)
--- NOTE | 2021-05-22 17:09 | CT Report ---
PROCEDURE: IVP INDICATIONS: FLANK PAIN CONTRAST: IV CONTRAST: Isovue 300 ml: 140 PO CONTRAST: *NO PO CONTRAST TECHNIQUE: After the administration of intravenous contrast, 5 mm thick sections acquired from the diaphragms to the symphysis. 5 mm thick coronal and sagittal reformats were acquired. For radiation dose reducti on, the following was used: automated exposure control, adjustment of mA and/or kV according to mary ent size. COMPARISON: 05/04/2020 FINDINGS: Image quality: Excellent. Lung bases: Chronic dense vertical atelectatic changes posteriorly. Heart size is normal. Heavy shannan ral annular and coronary artery calcification. Urinary system: Both kidneys are normal in size and enhancement. Tiny bilateral lower pole intrarena l calcifications. Exophytic cortical cyst arising from the lower pole of the right kidney is slightly hyperdense but nonenhancing postcontrast. Contrast-filled renal calyces are normal in morphology. C ontrast filled portions of both ureters are normal in caliber. Bladder wall thickness is normal. Solid organs: Liver and spleen are normal in size and enhancement. Gallbladder is decompressed. Bi liary system is non dilated. Pancreas enhances normally. No adrenal nodules. Peritoneum and bowel: Bowel loops demonstrate normal wall thickness and caliber. No free fluid or a ir. Normal appendix. Nodes and vessels: No retroperitoneal or mesenteric adenopathy by size criteria. Aorta and inferior vena cava are normal in size. Moderate atherosclerotic vascular calcification. Abdominal wall: No ventral hernias. Pelvis: No pathologic free pelvic fluid. No inguinal hernias or adenopathy. Normal size prostate g land with coarse calcifications. Bones: No suspicious bony lesions. No vertebral body compression fractures. Multilevel degenerativ e changes. IMPRESSION: 1. Tiny bilateral nonobstructing lower pole intrarenal calculi. 2. Exophytic right cortical renal cyst. 3. No evidence of obstructive uropathy. Reviewed by: Deborah Baer MD on 05/22/2021 5:08 PM PDT Approved by: Deborah Baer MD on 05/22/2021 5:08 PM PDT Station ID: [id number]
== END 2021-05-22 12:00 | disposition home or self-care (01) ==
LOC: DI 11:59
PROVIDERS: ATTEND Physician Assistant Medical
DX: N20.0 Calculus of kidney (principal); N28.1 Cyst of kidney, acquired
CPT/HCPCS: 74178; Q9967

== ENCOUNTER 2021-07-16 15:29 | Outpatient (CLI) | payer MEDICARE ==
[2021-07-16 17:41] LABS: BASOPHILS % (AUTO) 0.6 %; EOSINOPHILS # (AUTO) 0.1 10^3/uL (0.0-0.7); EOSINOPHILS % (AUTO) 1.1 %; HCT - HEMATOCRIT 44.2 % (42.0-52.0); LYMPHOCYTES # (AUTO) 0.7 10^3/uL (1.5-3.5); LYMPHOCYTES % (AUTO) 10.4 %; MEAN CORPUSCULAR HEMOGLOBIN 32.6 pg (27.0-31.0); MEAN CORPUSCULAR HGB CONC 31.7 g/dL (32.0-36.0); MONOCYTES # (AUTO) 0.5 10^3/uL (0.0-1.0); MONOCYTES % (AUTO) 7.6 %; NEUTROPHILS # (AUTO) 5.1 10^3/uL (1.5-6.6); NEUTROPHILS % (AUTO) 79.8 %; PLT - PLATELET COUNT 157 10^3/uL (130-450); RED BLOOD COUNT 4.29 10^6/uL (4.70-6.10); WHITE BLOOD COUNT 6.4 x10^3/uL (4.8-10.8)
[2021-07-16 18:48] LABS: ALBUMIN 4.3 g/dL (3.2-5.5); ALBUMIN/GLOBULIN RATIO 1.5 (1.0-2.2); ALKALINE PHOSPHATASE 72 IU/L (42-121); ALT ALANINE AMINOTRANSFERASE 13 IU/L (10-60); AST ASPARTATE AMINOTRANSFERASE 17 IU/L (10-42); BILIRUBIN,TOTAL 0.8 mg/dL (0.2-1.0); BUN - BLOOD UREA NITROGEN 32 mg/dL (6-20); CALCIUM 9.6 mg/dL (8.5-10.3); CARBON DIOXIDE - CO2 28 mmol/L (21-32); CHLORIDE 103 mmol/L (101-111); CHOL/HDL RATIO 3.9 (<5.0); CHOLESTEROL 215 mg/dL; CREATININE 0.8 mg/dL (0.6-1.2); GFR - MDRD 93 (>89); GLUCOSE 132 mg/dL (70-100); HDL CHOLESTEROL 55 mg/dL; LDL CHOLESTEROL,CALCULATED 139 mg/dL; LDL/HDL RATIO 2.5 (<3.6); SODIUM 140 mmol/L (135-145); TOTAL PROTEIN 7.2 g/dL (6.7-8.2); TRIGLYCERIDES 104 mg/dL; VLDL CHOLESTEROL 21 mg/dL
[2021-07-16 20:30] LABS: ESTIMATED AVERAGE GLUCOSE 203 mg/dL (70-100); HEMOGLOBIN A1c% 8.7 % (4.27-6.07)
== END 2021-07-16 23:59 | disposition home or self-care (01) ==
LOC: LAB.WCP 15:29
PROVIDERS: ATTEND Family Medicine
DX: E11.39 Type 2 diabetes mellitus with other diabetic ophthalmic complication (principal); D64.9 Anemia, unspecified
CPT/HCPCS: 36415; 80053; 80061; 82728; 83036; 83721; 85025

== ENCOUNTER 2021-07-17 14:34 | Outpatient (CLI) | payer MEDICARE ==
--- NOTE | 2021-07-17 19:54 | XRAY Report ---
PROCEDURE: Lumbar Spine 2 View INDICATIONS: CHRONIC LOW BACK PX TECHNIQUE: 2 views of the lumbar spine were acquired. COMPARISON: CT IVP dated 05/22/2021. FINDINGS: Bones: 5 [id number] vertebrae are present. There is grade 1 retrolisthesis of L1 on L2 and min imal retrolisthesis of L2 on L3 unchanged from previous CT study. No vertebral body compression fract ures. Degenerative endplate changes and bilateral facet arthrosis throughout lumbar spine is seen. N o suspicious bony lesions. Soft tissues: Overlying bowel gas pattern is normal. No suspicious soft tissue calcifications. Ath erosclerotic calcifications throughout abdominal aorta is seen. IMPRESSION: Degenerative disc disease throughout lumbar spine with minimal retrolisthesis at L1-2 an d L2-3 levels. No acute compression fracture. Reviewed by: Rajesh Butler MD on 07/17/2021 7:53 PM PDT Approved by: Rajesh Butler MD on 07/17/2021 7:53 PM PDT Station ID: [id number]
== END 2021-07-17 14:35 | disposition home or self-care (01) ==
LOC: DI.N 14:34
PROVIDERS: ATTEND Family Medicine
DX: M43.16 Spondylolisthesis, lumbar region (principal); M47.816 Spondylosis without myelopathy or radiculopathy, lumbar region; M51.36 Other intervertebral disc degeneration, lumbar region

== ENCOUNTER 2021-10-23 08:00 | Outpatient (CLI) | payer MEDICARE ==
[2021-10-23 18:07] LABS: BASOPHILS # (AUTO) 0.1 10^3/uL (0.0-0.1); EOSINOPHILS # (AUTO) 0.2 10^3/uL (0.0-0.7); EOSINOPHILS % (AUTO) 2.6 %; HCT - HEMATOCRIT 44.6 % (42.0-52.0); HGB - HEMOGLOBIN 14.3 g/dL (14.0-18.0); LYMPHOCYTES # (AUTO) 0.9 10^3/uL (1.5-3.5); MEAN CORPUSCULAR HEMOGLOBIN 32.1 pg (27.0-31.0); MEAN CORPUSCULAR HGB CONC 32.1 g/dL (32.0-36.0); MEAN CORPUSCULAR VOLUME 100.2 fL (80.0-94.0); MONOCYTES # (AUTO) 0.8 10^3/uL (0.0-1.0); MONOCYTES % (AUTO) 12.8 %; NEUTROPHILS % (AUTO) 67.3 %; PLT - PLATELET COUNT 255 10^3/uL (130-450); RED BLOOD COUNT 4.45 10^6/uL (4.70-6.10); WHITE BLOOD COUNT 5.9 x10^3/uL (4.8-10.8)
[2021-10-23 18:30] LABS: CREATININE,URINE 110.6 mg/dL; MICROALBUM/CREATININE RATIO,UR 89.5 ug/mg (<30.0); MICROALBUMIN,URINE 9.9 mg/dL (0-300.0); THYROID STIMULATING HORMONE 1.74 uIU/mL (0.34-5.60)
[2021-10-23 18:32] LABS: ALBUMIN 3.7 g/dL (3.2-5.5); ALBUMIN/GLOBULIN RATIO 1.1 (1.0-2.2); ALKALINE PHOSPHATASE 94 IU/L (42-121); ALT ALANINE AMINOTRANSFERASE 12 IU/L (10-60); AST ASPARTATE AMINOTRANSFERASE 16 IU/L (10-42); BILIRUBIN,TOTAL 0.7 mg/dL (0.2-1.0); BUN - BLOOD UREA NITROGEN 29 mg/dL (6-20); CALCIUM 9.4 mg/dL (8.5-10.3); CARBON DIOXIDE - CO2 27 mmol/L (21-32); CHLORIDE 104 mmol/L (101-111); CHOL/HDL RATIO 4.3 (<5.0); CHOLESTEROL 230 mg/dL; GFR - MDRD 72 (>89); GLUCOSE 154 mg/dL (70-100); HDL CHOLESTEROL 53 mg/dL; LDL CHOLESTEROL,CALCULATED 162 mg/dL; LDL/HDL RATIO 3.1 (<3.6); POTASSIUM 4.5 mmol/L (3.5-5.0); SODIUM 141 mmol/L (135-145); TRIGLYCERIDES 76 mg/dL; VLDL CHOLESTEROL 15 mg/dL
[2021-10-23 19:00] LABS: ESTIMATED AVERAGE GLUCOSE 226 mg/dL (70-100); HEMOGLOBIN A1c% 9.5 % (4.27-6.07)
== END 2021-10-23 23:59 ==
LOC: LAB.WCP 08:00
PROVIDERS: ATTEND Family Medicine
DX: I10 Essential (primary) hypertension (principal); E78.5 Hyperlipidemia, unspecified; E10.9 Type 1 diabetes mellitus without complications; Z12.5 Encounter for screening for malignant neoplasm of prostate; Z79.899 Other long term (current) drug therapy
CPT/HCPCS: 36415; 80053; 80061; 82043; 82570; 83036; 84443; 85025; G0103; 83721; 84153

== ENCOUNTER 2021-11-26 10:58 | Outpatient (CLI) | payer MEDICARE | END 2021-11-26 10:59 | disposition EMS.NT | LOC: EMS 10:58 | DX: R41.82 Altered mental status, unspecified (principal); R73.09 Other abnormal glucose ==

== ENCOUNTER 2022-01-15 16:38 | Outpatient (CLI) | payer MEDICARE | END 2022-01-15 16:39 | disposition left against medical advice (07) | LOC: EMS 16:38 | DX: R41.82 Altered mental status, unspecified (principal); E11.649 Type 2 diabetes mellitus with hypoglycemia without coma; Z79.4 Long term (current) use of insulin ==

== ENCOUNTER 2022-01-29 12:38 | Outpatient (CLI) | payer MEDICARE ==
[2022-01-29 18:05] LABS: BASOPHILS % (AUTO) 0.4 %; EOSINOPHILS # (AUTO) 0.2 10^3/uL (0.0-0.7); EOSINOPHILS % (AUTO) 2.1 %; HCT - HEMATOCRIT 39.7 % (42.0-52.0); LYMPHOCYTES # (AUTO) 1.2 10^3/uL (1.5-3.5); LYMPHOCYTES % (AUTO) 16.6 %; MEAN CORPUSCULAR HEMOGLOBIN 32.5 pg (27.0-31.0); MEAN CORPUSCULAR HGB CONC 32.7 g/dL (32.0-36.0); MEAN CORPUSCULAR VOLUME 99.3 fL (80.0-94.0); MEAN PLATELET VOLUME 12.6 fL (7.4-11.4); MONOCYTES # (AUTO) 0.8 10^3/uL (0.0-1.0); MONOCYTES % (AUTO) 11.5 %; PLT - PLATELET COUNT 203 10^3/uL (130-450); RED CELL DISTRIBUTION WIDTH 14.6 % (12.0-15.0); WHITE BLOOD COUNT 7.2 x10^3/uL (4.8-10.8)
[2022-01-29 18:32] LABS: ALBUMIN 3.6 g/dL (3.2-5.5); ALBUMIN/GLOBULIN RATIO 1.2 (1.0-2.2); ALKALINE PHOSPHATASE 80 IU/L (42-121); ALT ALANINE AMINOTRANSFERASE 13 IU/L (10-60); AST ASPARTATE AMINOTRANSFERASE 17 IU/L (10-42); BILIRUBIN,TOTAL 0.5 mg/dL (0.2-1.0); BUN - BLOOD UREA NITROGEN 34 mg/dL (6-20); CALCIUM 9.5 mg/dL (8.5-10.3); CARBON DIOXIDE - CO2 30 mmol/L (21-32); CHLORIDE 102 mmol/L (101-111); CHOL/HDL RATIO 3.5 (<5.0); CHOLESTEROL 198 mg/dL; CREATININE 1.1 mg/dL (0.6-1.2); GFR - MDRD 64 (>89); GLUCOSE 187 mg/dL (70-100); HDL CHOLESTEROL 56 mg/dL; LDL CHOLESTEROL,CALCULATED 120 mg/dL; LDL/HDL RATIO 2.1 (<3.6); POTASSIUM 4.7 mmol/L (3.5-5.0); SODIUM 140 mmol/L (135-145); TOTAL PROTEIN 6.5 g/dL (6.7-8.2); TRIGLYCERIDES 112 mg/dL; VLDL CHOLESTEROL 22 mg/dL
[2022-01-29 20:17] LABS: ESTIMATED AVERAGE GLUCOSE 240 mg/dL (70-100)
== END 2022-01-29 12:39 | disposition home or self-care (01) ==
LOC: LAB.N 12:38
PROVIDERS: ATTEND Family Medicine
DX: E10.9 Type 1 diabetes mellitus without complications (principal)
CPT/HCPCS: 36415; 80053; 80061; 83036; 83721; 85025

== ENCOUNTER 2022-05-02 08:00 | Outpatient (CLI) | payer MEDICARE | END 2022-05-02 23:59 | disposition home or self-care (01) | LOC: LAB.N 08:00 | PROVIDERS: ATTEND Nurse Practitioner | DX: L03.90 Cellulitis, unspecified (principal) | CPT/HCPCS: 87070; 87077; 87181; 87205 ==

== ENCOUNTER 2022-05-15 06:54 | Outpatient (CLI) | payer MEDICARE | END 2022-05-15 06:55 | disposition critical access hospital (66) | LOC: EMS 06:54 | DX: R53.1 Weakness (principal); W18.39XA Other fall on same level, initial encounter; Y92.003 Bedroom of unspecified non-institutional (private) residence as the place of occurrence of the external cause | CPT/HCPCS: A0425; A0429 ==

== ENCOUNTER 2022-05-15 07:12 | Emergency (ER) | payer MEDICARE ==
[2022-05-15] MEDS ORDERED: SODIUM CHLORIDE 0.9% 1,000 ML IV STA ×2 (07:28→09:25)
[2022-05-15 07:59] LABS: BASOPHILS # (AUTO) 0.1 10^3/uL (0.0-0.1); BASOPHILS % (AUTO) 0.5 %; EOSINOPHILS % (AUTO) 0.2 %; HCT - HEMATOCRIT 41.9 % (42.0-52.0); LYMPHOCYTES # (AUTO) 0.5 10^3/uL (1.5-3.5); LYMPHOCYTES % (AUTO) 4.1 %; MEAN CORPUSCULAR HEMOGLOBIN 33.8 pg (27.0-31.0); MEAN CORPUSCULAR HGB CONC 33.4 g/dL (32.0-36.0); MEAN CORPUSCULAR VOLUME 101.2 fL (80.0-94.0); MEAN PLATELET VOLUME 11.9 fL (7.4-11.4); MONOCYTES # (AUTO) 0.6 10^3/uL (0.0-1.0); MONOCYTES % (AUTO) 5.1 %; NEUTROPHILS # (AUTO) 9.8 10^3/uL (1.5-6.6); NEUTROPHILS % (AUTO) 89.7 %; PLT - PLATELET COUNT 169 10^3/uL (130-450); RED BLOOD COUNT 4.14 10^6/uL (4.70-6.10); RED CELL DISTRIBUTION WIDTH 13.6 % (12.0-15.0); WHITE BLOOD COUNT 10.9 x10^3/uL (4.8-10.8)
[2022-05-15 08:11] LABS: ALBUMIN 3.7 g/dL (3.2-5.5); ALBUMIN/GLOBULIN RATIO 1.2 (1.0-2.2); BILIRUBIN,TOTAL 0.5 mg/dL (0.2-1.0); CALCIUM 9.6 mg/dL (8.5-10.3); CREATININE 1.8 mg/dL (0.6-1.2); POTASSIUM 5.4 mmol/L (3.5-5.0); TOTAL PROTEIN 6.7 g/dL (6.7-8.2)
--- NOTE | 2022-05-15 08:27 | ED Physician Documentation ---
History of Present Illness - Stated complaint Stated Complaint: WEAKNESS - Chief complaint Chief Complaint: Neuro - History obtained from History obtained from: Patient - Additonal information Additional information: The patient comes to the emergency department chief complaint of generalized weakness. He states that its been getting worse over the last couple weeks but especially the last couple days. He denies any shortness of breath. He has had a little nausea and decreased appetite, but no pain in his abdomen. No chest pain. No other respiratory symptoms such as cough or rhinorrhea. No dysuria or back pain. No sick contacts that the patient knows of. He states he drinks about 48 ounces of water each day. He states that last night, he got up to go the bathroom and His legs gave out as he was walking around the end of his bed. He States that the only thing that feels like it was injured is his left shoulder, though he has had some range of motion of this. No other complaints at this time. Review of Systems Ten Systems: 10 systems reviewed and negative Constitutional: reports: Fatigue Eyes: reports: Reviewed and negative Ears: reports: Reviewed and negative Nose: reports: Reviewed and negative Throat: reports: Reviewed and negative Cardiac: reports: Reviewed and negative Respiratory: reports: Reviewed and negative GI: reports: Reviewed and negative : reports: Reviewed and negative Skin: reports: Reviewed and negative Musculoskeletal: reports: Reviewed and negative Neurologic: reports: Reviewed and negative Psychiatric: reports: Reviewed and negative Endocrine: reports: Reviewed and negative Immunocompromised: reports: Reviewed and negative PD PAST MEDICAL HISTORY - Past Medical History Past Medical History: Yes Cardiovascular: Hypertension, High cholesterol, Coronary artery disease, Peripheral Vascular Disease Respiratory: COPD Neuro: Peripheral neuropathy Endocrine/Autoimmune: Type 1 diabetes GI: None : None HEENT: None Psych: Depression, Anxiety Musculoskeletal: None Derm: None - Past Surgical History Past Surgical History: Yes Ortho: Knee replacement Cardiovascular: Coronary stent, Angioplasty - Present Medications Home Medications: Ambulatory Orders Medication Instructions Recorded Confirmed Cholecalciferol (Vitamin D3) 2,000 unit PO DAILY 06/18/18 04/15/21 [Vitamin D3] Insulin Lispro [Humalog Kwikpen 0 - 10 unit SUBQ PRN PRN 06/18/18 04/15/21 U-100] Multivitamin [Multiple Vitamins] 1 each PO DAILY 06/18/18 04/15/21 Varenicline Tartrate [Chantix] 1 mg PO BID 06/18/18 04/15/21 Ascorbic Acid [Vitamin C] 1,000 mg PO DAILY 11/22/19 04/15/21 Insulin Degludec [Tresiba] 17 unit SQ DAILY 11/22/19 04/15/21 Folic Acid 0.4 mg PO SUMOWETHFRSA 07/19/20 04/15/21 Methotrexate [Methotrexate Sodium] 12.5 mg PO Q7D 07/19/20 04/15/21 Carvedilol [Coreg] 6.25 mg PO BID 08/16/20 04/15/21 Gabapentin [Neurontin] 300 mg PO TID #60 capsule 09/04/20 04/15/21 Ferrous Sulfate 325 mg PO DAILY 09/08/20 04/15/21 Aspirin Chewable [St Rj 81 mg PO DAILY 09/20/20 04/15/21 Aspirin] predniSONE [Deltasone] 10 mg PO DAILY 09/20/20 04/15/21 Atorvastatin [Lipitor] 80 mg PO HS 04/15/21 04/15/21 Lisinopril [Zestril] 2.5 mg PO DAILY PM 04/15/21 04/15/21 - Allergies Allergies/Adverse Reactions: Allergies Allergy/AdvReac Type Severity Reaction Status Date / Time primidone Allergy Anaphylaxis Verified 05/15/22 07:22 - Social History Does the pt smoke?: No Smoking Status: Never smoker Does the pt drink ETOH?: No Does the pt have substance abuse?: No - Immunizations Immunizations are current?: Yes - POLST Patient has POLST: No PD ED PE NORMAL - Vitals Vital signs reviewed: Yes - General General: Alert and oriented X 3, No acute distress, Well developed/nourished - HEENT HEENT: Atraumatic, PERRL, EOMI, Moist mucous membranes - Neck Neck: Supple, no meningeal sign - Cardiac Cardiac: RRR, No murmur, Strong equal pulses - Respiratory Respiratory: No respiratory distress, Clear bilaterally - Abdomen Abdomen: Soft, Non tender, Non distended - Derm Derm: Normal color, Warm and dry, No rash - Extremities Extremities: No deformity, No edema, No calf tenderness / cord, Other (Mild tenderness palpation anterior left shoulder with decreased range of motion. Humeral head is palpable within the glenoid fossa. No deformity.) - Neuro Neuro: Alert and oriented X 3, adhesive sprayer 2-12 intact, No motor deficit, No sensory deficit, Normal speech - Psych Psych: Normal mood, Normal affect Results - Vitals Vitals: Oxygen O2 Source Room air - Labs Labs: Laboratory Tests 05/15/22 05/15/22 05/15/22 07:40 07:50 07:50 WBC 10.9 H RBC 4.14 L Hgb 14.0 Hct 41.9 L MCV 101.2 H MCH 33.8 H MCHC 33.4 RDW 13.6 Plt Count 169 MPV 11.9 H Neut # (Auto) 9.8 H Lymph # (Auto) 0.5 L [place] # (Auto) 0.6 Eos # (Auto) 0.0 Baso # (Auto) 0.1 Absolute Nucleated RBC 0.00 Nucleated RBC % 0.0 Sodium 136 Potassium 5.4 H Chloride 103 Carbon Dioxide 22 Anion Gap 11.0 BUN 55 H Creatinine 1.8 H Estimated GFR (MDRD) 36 L Glucose 323 H Calcium 9.6 Total Bilirubin 0.5 AST 55 H ALT 31 Alkaline Phosphatase 98 Total Protein 6.7 Albumin 3.7 Globulin 3.0 Albumin/Globulin Ratio 1.2 Lipase 29 Urine Color Urine Clarity Urine pH Ur Specific [place] Urine Protein Urine Glucose (UA) Urine Ketones Urine Occult Blood Urine Nitrite Urine Bilirubin Urine Urobilinogen Ur Leukocyte Esterase Urine RBC Urine WBC Ur Squamous Epith Cells Urine Bacteria Ur Microscopic Review Urine Culture Comments Nasal Adenovirus (PCR) NOT DETECTED Nasal B. parapertussis DNA (PCR) NOT DETECTED Nasal Coronavir 229E PCR NOT DETECTED Nasal Coronavir HKU1 PCR NOT DETECTED Nasal Coronavir NL63 PCR NOT DETECTED Nasal Coronavir OC43 PCR NOT DETECTED Nasal Enterovir/Rhinovir PCR NOT DETECTED Nasal Influenza B PCR NOT DETECTED Nasal Influenza A PCR NOT DETECTED Nasal Parainfluen 1 PCR NOT DETECTED Nasal Parainfluen 2 PCR NOT DETECTED Nasal Parainfluen 3 PCR NOT DETECTED Nasal Parainfluen 4 PCR NOT DETECTED Nasal RSV (PCR) NOT DETECTED Nasal B.pertussis DNA PCR NOT DETECTED Nasal C.pneumoniae (PCR) NOT DETECTED Milad Human Metapneumo PCR NOT DETECTED Nasal M.pneumoniae (PCR) NOT DETECTED Nasal SARS-CoV-2 (PCR) NOT DETECTED 05/15/22 11:05 WBC RBC Hgb Hct MCV MCH MCHC RDW Plt Count MPV Neut # (Auto) Lymph # (Auto) [place] # (Auto) Eos # (Auto) Baso # (Auto) Absolute Nucleated RBC Nucleated RBC % Sodium Potassium Chloride Carbon Dioxide Anion Gap BUN Creatinine Estimated GFR (MDRD) Glucose Calcium Total Bilirubin AST ALT Alkaline Phosphatase Total Protein Albumin Globulin Albumin/Globulin Ratio Lipase Urine Color YELLOW Urine Clarity CLEAR Urine pH 5.5 Ur Specific [place] 1.025 Urine Protein NEGATIVE Urine Glucose (UA) 500 H Urine Ketones TRACE Urine Occult Blood MODERATE H Urine Nitrite NEGATIVE Urine Bilirubin NEGATIVE Urine Urobilinogen 0.2 (NORMAL) Ur Leukocyte Esterase NEGATIVE Urine RBC 0-5 Urine WBC 4-5 Ur Squamous Epith Cells FEW Squamous Urine Bacteria Few Ur Microscopic Review INDICATED Urine Culture Comments NOT INDICATED Nasal Adenovirus (PCR) Nasal B. parapertussis DNA (PCR) Nasal Coronavir 229E PCR Nasal Coronavir HKU1 PCR Nasal Coronavir NL63 PCR Nasal Coronavir OC43 PCR Nasal Enterovir/Rhinovir PCR Nasal Influenza B PCR Nasal Influenza A PCR Nasal Parainfluen 1 PCR Nasal Parainfluen 2 PCR Nasal Parainfluen 3 PCR Nasal Parainfluen 4 PCR Nasal RSV (PCR) Nasal B.pertussis DNA PCR Nasal C.pneumoniae (PCR) Milad Human Metapneumo PCR Nasal M.pneumoniae (PCR) Nasal SARS-CoV-2 (PCR) - Rads (name of study) shoulder XR Radiology: Final report received (neg) PD MEDICAL DECISION MAKING - ED course Complexity details: reviewed results, re-evaluated patient, considered differential, d/w patient ED course: The patient was worked up with labs, UA and left shoulder x-ray and given 2 liters of 0.9 normal saline before finally urinating. XR was negative, and labs were unremarkable. Pt was feeling better, and stable for d/c home. Departure - Departure Disposition: 01 Home, Self Care Clinical Impression: Dehydration, Generalized weakness Condition: Stable Instructions: ED Dehydration, ED Mechanical Fall, ED Weakness UKO Comments: Your labs look good and your urinalysis shows no signs of infection. She has a severe UTI. Has been quite dehydrated, despite the water you have been drinking, as it took 2 bags of IV fluids before you urinated. This is with normal kidney function. Please be sure to drink extra water when the weather is hot as it has been. You should aim for at least 8 to 10 cups of water per day, or 64 to 72 ounces. Discharge Date/Time: 05/15/22 12:06
[2022-05-15 08:39] LABS: B. PARAPERTUSSIS- RESP PCR PAN NOT DETECTED; B. PERTUSSIS- RESP PCR PANEL NOT DETECTED; C. PNEUMONIAE- RESP PCR PANEL NOT DETECTED; CORONAVIRUS 229E-RESP PCR NOT DETECTED; CORONAVIRUS HKU1-RESP PCR NOT DETECTED; CORONAVIRUS NL63-RESP PCR NOT DETECTED; CORONAVIRUS OC43-RESP PCR NOT DETECTED; HUMAN METAPNEUMOVIRUS NOT DETECTED; INFLUENZA A- RESP PCR PANEL NOT DETECTED; INFLUENZA B - RESP PCR PANEL NOT DETECTED; M. PNEUMONIAE- RESP PCR PANEL NOT DETECTED; PARAINFLUENZA VIRUS 1 NOT DETECTED; PARAINFLUENZA VIRUS 2 NOT DETECTED; PARAINFLUENZA VIRUS 3 NOT DETECTED; PARAINFLUENZA VIRUS 4 NOT DETECTED; RHINOVIRUS/ENTEROVIRUS NOT DETECTED; RSV- RESP PCR PANEL NOT DETECTED; SARS-CoV-2 -RESP PCR PANEL NOT DETECTED
--- NOTE | 2022-05-15 09:15 | XRAY Report ---
PROCEDURE: Shoulder 3 View LT INDICATIONS: injury/pain TECHNIQUE: 3 views of the shoulder were acquired. COMPARISON: None. FINDINGS: Bones: No fractures or dislocations. No suspicious bony lesions. Visualized ribs appear intact. M ild-moderate AC joint degenerative changes and mild glenohumeral joint degenerative changes. Soft tissues: No suspicious soft tissue calcifications. IMPRESSION: 1. No acute osseous abnormality. 2. Degenerative changes of the acromioclavicular and glenohumeral joints. Reviewed by: Richrad Anguiano MD on 05/15/2022 9:14 AM PDT Approved by: Richard Anguiano MD on 05/15/2022 9:14 AM PDT Station ID: [id number]
[2022-05-15 11:14] VITALS: BP 176/46
[2022-05-15 11:20] LABS: BILIRUBIN,URINE NEGATIVE (NEGATIVE); GLUCOSE, URINE (UA) 500 mg/dL (NEGATIVE); KETONES,URINE (UA) TRACE mg/dL (NEGATIVE); LEUKOCYTE ESTERASE, URINE NEGATIVE (NEGATIVE); NITRITE,URINE NEGATIVE (NEGATIVE); OCCULT BLOOD,URINE MODERATE (NEGATIVE); PH,URINE 5.5 PH (5.0-7.5); PROTEIN,URINE NEGATIVE (NEGATIVE); UROBILINOGEN,URINE 0.2 (NORMAL) E.U./dL (NORMAL)
[2022-05-15 11:21] LABS: CLARITY,URINE CLEAR (CLEAR)
[2022-05-15 11:28] LABS: BACTERIA,URINE Few /HPF (None Seen); RBC,URINE 0-5 /HPF (0-5); SQUAMOUS EPITHELIAL CELL,UR FEW Squamous (<= Few)
== END 2022-05-15 12:06 | disposition home or self-care (01) ==
LOC: ED 07:12
DX: R53.1 Weakness (principal); E86.0 Dehydration; S49.92XA Unspecified injury of left shoulder and upper arm, initial encounter; W19.XXXA Unspecified fall, initial encounter; I10 Essential (primary) hypertension; Z20.822 Contact with and (suspected) exposure to COVID-19
CPT/HCPCS: 36415; 80053; 81001; 81003; 83690; 85025; 87086; 87633; 96360; 96361; 99284

== ENCOUNTER 2022-05-22 15:54 | Outpatient (CLI) | payer MEDICARE ==
[2022-05-22 17:49] LABS: BASOPHILS % (AUTO) 0.7 %; EOSINOPHILS # (AUTO) 0.1 10^3/uL (0.0-0.7); EOSINOPHILS % (AUTO) 1.9 %; HCT - HEMATOCRIT 39.9 % (42.0-52.0); HGB - HEMOGLOBIN 13.2 g/dL (14.0-18.0); LYMPHOCYTES # (AUTO) 0.8 10^3/uL (1.5-3.5); LYMPHOCYTES % (AUTO) 14.5 %; MEAN CORPUSCULAR HEMOGLOBIN 33.4 pg (27.0-31.0); MEAN CORPUSCULAR HGB CONC 33.1 g/dL (32.0-36.0); MEAN PLATELET VOLUME 12.6 fL (7.4-11.4); MONOCYTES # (AUTO) 0.8 10^3/uL (0.0-1.0); MONOCYTES % (AUTO) 13.6 %; PLT - PLATELET COUNT 188 10^3/uL (130-450); RED BLOOD COUNT 3.95 10^6/uL (4.70-6.10); RED CELL DISTRIBUTION WIDTH 13.3 % (12.0-15.0); WHITE BLOOD COUNT 5.8 x10^3/uL (4.8-10.8)
[2022-05-22 18:06] LABS: ALBUMIN 3.5 g/dL (3.2-5.5); ALBUMIN/GLOBULIN RATIO 1.2 (1.0-2.2); BILIRUBIN,TOTAL 0.6 mg/dL (0.2-1.0); CALCIUM 9.5 mg/dL (8.5-10.3); CREATININE 1.4 mg/dL (0.6-1.2); POTASSIUM 4.8 mmol/L (3.5-5.0); TOTAL PROTEIN 6.4 g/dL (6.7-8.2)
[2022-05-22 18:17] LABS: THYROID STIMULATING HORMONE 2.37 uIU/mL (0.34-5.60)
[2022-05-22 21:06] LABS: ESTIMATED AVERAGE GLUCOSE 243 mg/dL (70-100); HEMOGLOBIN A1c% 10.1 % (4.27-6.07)
== END 2022-05-22 15:55 | disposition home or self-care (01) ==
LOC: LAB.N 15:54
PROVIDERS: ATTEND Physician Assistant
DX: E10.9 Type 1 diabetes mellitus without complications (principal); L03.90 Cellulitis, unspecified; R53.83 Other fatigue; R53.81 Other malaise
CPT/HCPCS: 36415; 80053; 83036; 84443; 85025

== ENCOUNTER 2022-07-17 11:40 | Outpatient (CLI) | payer MEDICARE ==
[2022-07-17 17:53] LABS: BASOPHILS # (AUTO) 0.1 10^3/uL (0.0-0.1); BASOPHILS % (AUTO) 0.6 %; EOSINOPHILS # (AUTO) 0.1 10^3/uL (0.0-0.7); HCT - HEMATOCRIT 32.1 % (42.0-52.0); LYMPHOCYTES # (AUTO) 0.7 10^3/uL (1.5-3.5); LYMPHOCYTES % (AUTO) 7.5 %; MEAN CORPUSCULAR HEMOGLOBIN 31.9 pg (27.0-31.0); MEAN CORPUSCULAR HGB CONC 31.2 g/dL (32.0-36.0); MEAN CORPUSCULAR VOLUME 102.6 fL (80.0-94.0); MEAN PLATELET VOLUME 11.5 fL (7.4-11.4); MONOCYTES # (AUTO) 0.9 10^3/uL (0.0-1.0); MONOCYTES % (AUTO) 9.8 %; NEUTROPHILS % (AUTO) 80.6 %; PLT - PLATELET COUNT 278 10^3/uL (130-450); RED BLOOD COUNT 3.13 10^6/uL (4.70-6.10); RED CELL DISTRIBUTION WIDTH 15.4 % (12.0-15.0); WHITE BLOOD COUNT 8.7 x10^3/uL (4.8-10.8)
[2022-07-17 18:16] LABS: ALBUMIN 3.8 g/dL (3.2-5.5); ALBUMIN/GLOBULIN RATIO 1.5 (1.0-2.2); ALKALINE PHOSPHATASE 92 IU/L (42-121); ALT ALANINE AMINOTRANSFERASE 18 IU/L (10-60); AST ASPARTATE AMINOTRANSFERASE 13 IU/L (10-42); BILIRUBIN,TOTAL 0.4 mg/dL (0.2-1.0); BUN - BLOOD UREA NITROGEN 27 mg/dL (6-20); CALCIUM 8.7 mg/dL (8.5-10.3); CARBON DIOXIDE - CO2 29 mmol/L (21-32); CHLORIDE 102 mmol/L (101-111); CHOL/HDL RATIO 2.6 (<5.0); CHOLESTEROL 164 mg/dL; CREATININE 0.8 mg/dL (0.6-1.2); GFR - MDRD 93 (>89); GLUCOSE 246 mg/dL (70-100); HDL CHOLESTEROL 63 mg/dL; LDL CHOLESTEROL,CALCULATED 87 mg/dL; LDL/HDL RATIO 1.4 (<3.6); POTASSIUM 4.7 mmol/L (3.5-5.0); SODIUM 137 mmol/L (135-145); TOTAL PROTEIN 6.4 g/dL (6.7-8.2); TRIGLYCERIDES 69 mg/dL; VLDL CHOLESTEROL 14 mg/dL
[2022-07-17 21:11] LABS: ESTIMATED AVERAGE GLUCOSE 171 mg/dL (70-100); HEMOGLOBIN A1c% 7.6 % (4.27-6.07)
== END 2022-07-17 11:41 | disposition home or self-care (01) ==
LOC: LAB.N 11:40
PROVIDERS: ATTEND Physician Assistant
DX: Z51.81 Encounter for therapeutic drug level monitoring (principal); E10.9 Type 1 diabetes mellitus without complications
CPT/HCPCS: 36415; 80053; 80061; 83036; 83721; 85025

== ENCOUNTER 2022-07-23 03:05 | Outpatient (CLI) | payer MEDICARE | END 2022-07-23 03:06 | disposition short-term general hospital (02) | LOC: EMS 03:05 | DX: I21.09 ST elevation (STEMI) myocardial infarction involving other coronary artery of anterior wall (principal) | CPT/HCPCS: A0425; A0427 ==